=== PATIENT | male | born 1945 | race Caucasian/White ===

== ENCOUNTER 2016-12-05 15:07 | Emergency (ER) | payer MEDICARE, BC ==
[~2016-12-05] VITALS: Ht 182.9 cm; Wt 95.3 kg
[~2016-12-05 15:07] MED LIST: ASPI-482 PO; CETI10TA2 PO; CYAN10005 PO; FLUT1DIS3 IH; OMEP20CA9 PO; SIMV20TA3 PO; VALS1TAB25 PO
--- NOTE | 2016-12-05 18:36 | PHYS DOC ---
Past Medical History Past Medical History: Asthma, High Cholesterol, Hypertension Past Surgical History: Cholecystectomy, Other Additional Past Surgical Histo: prostate Additional Information: beer everyday Drug Use: None Adult General Chief Complaint Chief Complaint: FEVER HPI HPI Patient is a 71 year old male who presents with dry cough, chills and sweats, myalgia, rhinorrhea, and fatigue for over the past week. He took Tamiflu and has completed this. He states he is still having fevers to 101 at night, so he came to make sure he does not have pneumonia. He denies sputum production, dyspnea, chest pain, abdominal pain, nausea or vomiting, diarrhea, sore throat. Review of Systems Review of Systems Constitutional: Has fever and chills [] Eyes: Denies change in visual acuity, redness, or eye pain [] HENT: Denies nasal congestion or sore throat [] Respiratory: Denies shortness of breath [] Cardiovascular: No additional information not addressed in HPI [] GI: Denies abdominal pain, nausea, vomiting, bloody stools or diarrhea [] : Denies dysuria or hematuria [] Musculoskeletal: Denies back pain or joint pain [] Integument: Denies rash or skin lesions [] Neurologic: Denies headache, focal weakness or sensory changes [] Endocrine: Denies polyuria or polydipsia [] Allergies Allergies Allergies Coded Allergies Type Severity Reaction Last Updated Verified No Known Drug Allergies 07/26/14 No Physical Exam Physical Exam Constitutional: Well developed, well nourished, no acute distress, non-toxic appearance. [] HENT: Normocephalic, atraumatic, bilateral TMs normal, oropharynx moist, no oral exudates, nose normal. [] Eyes: PERRLA, EOMI, conjunctiva normal, no discharge. [] Neck: Normal range of motion, no tenderness, supple, no stridor. [] Cardiovascular:Heart rate regular rhythm [] Lungs & Thorax: Bilateral breath sounds clear to auscultation [] Abdomen: Bowel sounds normal, soft, no tenderness. [] Skin: Warm, dry, no erythema, no rash. [] Back: No tenderness, no CVA tenderness. [] Extremities: ROM intact, no edema. [] Neurologic: Alert and oriented X 3, normal motor function, normal sensory function, no focal deficits noted. [] Psychologic: Affect normal, judgement normal, mood normal. [] Current Patient Data Vital Signs Vital Signs Date Time Temp Pulse Resp B/P Pulse Ox O2 Delivery O2 Flow Rate FiO2 12/05/16 18:39 97.6 74 18 140/80 96 Room Air 97.6 Radiology/Procedures Radiology/Procedures Chest xray as interpreted by me with no acute cardiopulmonary disease process Course & Med Decision Making Course & Med Decision Making Pertinent Labs and Imaging studies reviewed. (See chart for details) X-rays unremarkable. Discussed symptomatic care for likely viral illness. Encouraged primary care follow-up. Return precautions given. He understands and agrees with plan. Dragon Disclaimer Dragon Disclaimer This electronic medical record was generated, in whole or in part, using a voice recognition dictation system. Departure Departure Impression: Primary Impression: Upper respiratory infection Disposition: 01 HOME, SELF-CARE Condition: STABLE Referrals: Benigno WAKEFIELD MD (PCP) Patient Instructions: Upper Respiratory Infection, Adult, [id number] Additional Instructions: Take Tylenol or ibuprofen as needed for pain or fever. Follow-up with your primary care doctor within one week. Return for any concerns. Problem Qualifiers Primary Impression: Upper respiratory infection URI type: unspecified viral URI Qualified Code: J06.9 - Acute upper respiratory infection, unspecified Alysha SMITH MD Dec 05, 2016 18:36
[2016-12-05 18:39] VITALS: BP 140/80
--- NOTE | 2016-12-06 09:01 | RAD ---
Chest, 2 views, 12/05/2016: History: Cough, fever Comparison is made to a study from 03/28/2009. The heart size and pulmonary vascularity are within normal limits. There is mild tortuosity of the thoracic aorta. There is mild bibasilar linear atelectasis and/or scarring. The upper lung echeverria are clear. There is no evidence of pleural fluid. Moderate hypertrophic spurring is present in the spine. IMPRESSION: Mild bibasilar linear atelectasis and/or scarring.
== END 2016-12-05 18:40 | disposition home or self-care (01) ==
LOC: ER 15:07
DX: J06.9 Acute upper respiratory infection, unspecified (principal); M79.1 Myalgia; J45.909 Unspecified asthma, uncomplicated; E78.00 Pure hypercholesterolemia, unspecified
CPT/HCPCS: 71020; 99284

== ENCOUNTER 2016-12-12 14:44 | Inpatient (IN) | payer MEDICARE, BC ==
[2016-12-12] VITALS (15 sets, daily range): BP systolic 92–129; BP diastolic 57–102
[~2016-12-12] VITALS: Ht 180.3 cm; Wt 103.4 kg
[2016-12-12] MEDS ORDERED: IV NORMAL SALINE 1000ML BAG 1,000 ML IV SCH (15:45)
[2016-12-12] MEDS ORDERED: ONDANSETRON PF 4 MG/2 ML VIAL. IV ONE (15:45)
[2016-12-12] MEDS ORDERED: KETOROLAC TROMETHAMINE 30 MG/ML SYRINGE. IV ONE (15:45)
[2016-12-12 15:58] LABS: BASO % 0 % (0-3); EOS % 0 % (0-3); HEMOGLOBIN 11.6 g/dL (13.0-17.5); LYMPH # 0.3 x10^3/uL (1.0-4.8); LYMPH % 2 % (24-48); MEAN CORPUSCULAR HEMOGLOBIN 32 pg (25-35); MEAN CORPUSCULAR HGB CONC 33 g/dL (31-37); MEAN CORPUSCULAR VOLUME 98 fL (79-100); MONO % 1 % (0-9); NEUT % 96 % (31-73); PLATELET COUNT 409 x10^3/uL (140-400); RED BLOOD COUNT 3.59 x10^6/uL (4.30-5.70); RED CELL DISTRIBUTION WIDTH 13.3 % (11.5-14.5)
[2016-12-12] MEDS ORDERED: ACETAMINOPHEN 325 MG TABLET. PO ONE (16:00)
[2016-12-12 16:14] LABS: CALCIUM 8.5 mg/dL (8.5-10.1); CREATININE 1.4 mg/dL (0.7-1.3); GFR 50.1; POTASSIUM 3.1 mmol/L (3.5-5.1)
[2016-12-12 16:20] LABS: ALBUMIN 2.6 g/dL (3.4-5.0); ALBUMIN/GLOBULIN RATIO 0.6 (1.0-1.7); TOTAL BILIRUBIN 1.4 mg/dL (0.2-1.0); TOTAL PROTEIN 7.2 g/dL (6.4-8.2)
[2016-12-12 16:25] LABS: BILIRUBIN,URINE SMALL (NEG); GLUCOSE,URINE NEGATIVE (NEG); NITRITE,URINE NEGATIVE (NEG); PROTEIN,URINE NEGATIVE (NEG-TRACE)
[2016-12-12 16:36] LABS: BACTERIA,URINE 0 /HPF (0-FEW); RBC,URINE OCC /HPF (0-2); SQUAMOUS EPITHELIAL CELL,UR OCC /LPF
[2016-12-12 16:55] LABS: PLT ESTIMATE ADEQUATE (ADEQUATE)
--- NOTE | 2016-12-12 17:00 | RAD ---
Indication fever for 2 days. History of difficulty breathing. History of hypertension. PA and lateral views of the chest were obtained and are compared to an examination one week earlier. Some linear atelectasis or scar is seen at the left lung base appearing similar. Heart and pulmonary vessels are unchanged. Background changes compatible with emphysema or fibrosis are noted. There is no gross congestive heart failure. An acute parenchymal infiltrate is not seen. There has not been a significant change in the appearance of the chest compared to the previous exam. IMPRESSION: Chronic changes. No acute process. No significant change
[2016-12-12 17:04] LABS: OBC FLU VALID
[2016-12-12] MEDS ORDERED: ACETAMINOPHEN 325 MG TABLET. PO PRN (17:30)
[2016-12-12] MEDS ORDERED: ONDANSETRON PF 4 MG/2 ML VIAL. IV PRN (17:30)
--- NOTE | 2016-12-12 17:55 | PHYS DOC ---
Past Medical History Past Medical History: Asthma, High Cholesterol, Hypertension Past Surgical History: Cholecystectomy, Other Additional Past Surgical Histo: TURP 2011 Alcohol Use: None Drug Use: None Adult General Chief Complaint Chief Complaint: SHORTNESS OF BREATH HPI HPI Patient is a 71 year old gentleman who presents here today secondary to fever to 102 for 16 days consistently. Patient reports the fever comes and goes daily however he's had a fever every day for approximately 15 in the last 16 days. Patient reports that he did see his primary care physician and was treated with Tamiflu without resolution of his fevers. Patient then came to the ER for further evaluation of his fever was told that it was likely viral and that it would resolve on its own. Patient's weight approximately 6-7 more days with fevers occurring every day. Patient's only symptom is a nonproductive cough. Patient denies any abdominal pain dysuria frequency or urgency. Patient denies any sore throat or ear pain. Patient denies any rashes. Patient denies any diarrhea. Patient denies any recent travel. Patient denies any new medications. Patient's family reports that he is extremely weak and barely able to walk. They report he's been feeling dizzy for the last couple days and hence brought to the ER today secondary to concerns of him falling and hurting himself. Patient's history significant for hypertension, status post cholecystectomy and prostatectomy. Patient has no diabetes liver longer kidney problems. Patient does not smoke drink or do any drugs. Patient is not allergic to any medications. Patient's physical exam the ER is unremarkable except for tachycardia. Patient had a fever 101 here in the ER and heart rate apparently 115-120. No source of his fevers identifiable by his exam. Patient's ER workup is unremarkable. Only significant lab value was a slightly elevated white count of 12,000 with a significantly left shifted. Patient had 96 segs noted. Patient's UA was unremarkable. At this time his lactic acid is still pending. Blood cultures were sent. A/P this is a 71-year-old gentleman with fever of unknown etiology has been occurring for the last 16 days without an unclear source. Patient reports decreased by mouth intake and weakness. Patient will be admitted to the hospital and started empirically on antibiotics as well as cultures are pending. Patient will likely benefit from consultation from infectious disease for further evaluation of the source. Patient has had no recent travel or no new medications. Patient has been treated for 10 influenza. Patient's evaluation the ER has not been able to resolve or reveal the source of his fever. Review of Systems Review of Systems Constitutional: Denies fever or chills [] Eyes: Denies change in visual acuity, redness, or eye pain [] Cardiovascular: No additional information not addressed in HPI [] GI: Denies abdominal pain, nausea, vomiting, bloody stools or diarrhea [] : Denies dysuria or hematuria [] Musculoskeletal: Denies back pain or joint pain [] Integument: Denies rash or skin lesions [] Neurologic: Denies headache, focal weakness or sensory changes [] Endocrine: Denies polyuria or polydipsia [] Current Medications Current Medications Current Medications Medications (Trade) Dose Ordered Sig/Tyler Start Time Stop Time Status Last Admin Dose Admin Acetaminophen (Tylenol) 650 mg PRN Q4HRS PRN 12/12/16 17:30 12/13/16 17:29 Ketorolac Tromethamine (Toradol) 30 mg 1X ONCE 12/12/16 15:45 12/12/16 15:48 DC 12/12/16 15:58 30 MG Ondansetron HCl (Zofran) 4 mg 1X ONCE 12/12/16 15:45 12/12/16 15:48 DC 12/12/16 15:58 4 MG Ondansetron HCl 4 mg 4 mg PRN Q8HRS PRN 12/12/16 17:30 12/13/16 17:29 Sodium Chloride (Iv Sodium Chloride 0.9% 1000ml Bag) 1,000 ml @ 125 mls/hr Q8H 12/12/16 17:45 12/13/16 17:44 Allergies Allergies Allergies Coded Allergies Type Severity Reaction Last Updated Verified No Known Drug Allergies 07/26/14 No Physical Exam Physical Exam Constitutional: Well developed, well nourished, no acute distress, non-toxic appearance. [] HENT: Normocephalic, atraumatic, bilateral external ears normal, oropharynx moist, no oral exudates, nose normal. [] Eyes: PERRLA, EOMI, conjunctiva normal, no discharge. [] Neck: Normal range of motion, no tenderness, supple, no stridor. [] Cardiovascular:Heart rate regular rhythm, Lungs & Thorax: Bilateral breath sounds clear to auscultation [] Abdomen: Bowel sounds normal, soft, no tenderness, no masses, no pulsatile masses. [] Skin: Warm, dry, no erythema, no rash. [] Back: No tenderness, no CVA tenderness. [] Extremities: No tenderness, no cyanosis, no clubbing, ROM intact, no edema. [] Neurologic: Alert and oriented X 3, normal motor function, normal sensory function, no focal deficits noted. [] Psychologic: Affect normal, judgement normal, mood normal. [] Current Patient Data Vital Signs Vital Signs Date Time Temp Pulse Resp B/P Pulse Ox O2 Delivery O2 Flow Rate FiO2 12/12/16 15:10 100.2 119 28 138/72 94 Room Air 100.2 Lab Values Laboratory Tests Test 12/12/16 15:30 12/12/16 16:15 12/12/16 16:22 White Blood Count 12.0x10^3/uL (4.0-11.0) H Red Blood Count 3.59x10^6/uL (4.30-5.70) L Hemoglobin 11.6g/dL (13.0-17.5) L Hematocrit 35.0% (39.0-53.0) L Mean Corpuscular Volume 98fL (79-100) Mean Corpuscular Hemoglobin 32pg (25-35) Mean Corpuscular Hemoglobin Concent 33g/dL (31-37) Red Cell Distribution Width 13.3% (11.5-14.5) Platelet Count 409x10^3/uL (140-400) H Neutrophils (%) (Auto) 96% (31-73) H Lymphocytes (%) (Auto) 2% (24-48) L Monocytes (%) (Auto) 1% (0-9) Eosinophils (%) (Auto) 0% (0-3) Basophils (%) (Auto) 0% (0-3) Neutrophils # (Auto) 11.4x10^3uL (1.8-7.7) H Lymphocytes # (Auto) 0.3x10^3/uL (1.0-4.8) L Monocytes # (Auto) 0.2x10^3/uL (0.0-1.1) Eosinophils # (Auto) 0.0x10^3/uL (0.0-0.7) Basophils # (Auto) 0.0x10^3/uL (0.0-0.2) Segmented Neutrophils % 81% (35-66) H Band Neutrophils % 15% (0-9) H Lymphocytes % 2% (24-48) L Monocytes % 2% (0-10) Platelet Estimate Adequate (ADEQUATE) Sodium Level 134mmol/L (136-145) L Potassium Level 3.1mmol/L (3.5-5.1) L Chloride Level 97mmol/L (98-107) L Carbon Dioxide Level 24mmol/L (21-32) Anion Gap 13 (6-14) Blood Urea Nitrogen 24mg/dL (8-26) Creatinine 1.4mg/dL (0.7-1.3) H Estimated GFR (Cockcroft-Gault) 50.1 BUN/Creatinine Ratio 17 (6-20) Glucose Level 124mg/dL (70-99) H Lactic Acid Level 1.6mmol/L (0.4-2.0) Calcium Level 8.5mg/dL (8.5-10.1) Total Bilirubin 1.4mg/dL (0.2-1.0) H Aspartate Amino Transferase (AST) 33U/L (15-37) Alanine Aminotransferase (ALT) 61U/L (16-63) Alkaline Phosphatase 149U/L (46-116) H Total Protein 7.2g/dL (6.4-8.2) Albumin 2.6g/dL (3.4-5.0) L Albumin/Globulin Ratio 0.6 (1.0-1.7) L Lipase 125U/L (73-393) Thyroid Stimulating Hormone (TSH) 1.231uIU/mL (0.358-3.74) Urine Collection Type Unknown Urine Color Alma Delia Urine Clarity Clear Urine pH 6.0 Urine Specific [place] 1.015 Urine Protein Negativemg/dL (NEG-TRACE) Urine Glucose (UA) Negativemg/dL (NEG) Urine Ketones (Stick) Tracemg/dL (NEG) Urine Blood Negative (NEG) Urine Nitrite Negative (NEG) Urine Bilirubin Small (NEG) Urine Urobilinogen Dipstick 2.0mg/dL (0.2 mg/dL) Urine Leukocyte Esterase Negative (NEG) Urine RBC Occ/HPF (0-2) Urine WBC 1-4/HPF (0-4) Urine Squamous Epithelial Cells Occ/LPF Urine Bacteria 0/HPF (0-FEW) Urine Cellular Casts Occ/HPF Urine Hyaline Casts Moderate/HPF Urine Mucus Mod/LPF Influenza Type A Antigen Negative (NEGATIVE) Influenza Type B Antigen Negative (NEGATIVE) Laboratory Tests 12/12/16 15:30 Laboratory Tests 12/12/16 15:30 EKG EKG [] Radiology/Procedures Radiology/Procedures [] Course & Med Decision Making Course & Med Decision Making Pertinent Labs and Imaging studies reviewed. (See chart for details) [] Dragon Disclaimer Dragon Disclaimer This electronic medical record was generated, in whole or in part, using a voice recognition dictation system. Departure Departure Impression: Primary Impression: FUO (fever of unknown origin) Additional Impressions: Hypokalemia Leukocytosis Dehydration Generalized weakness Disposition: 09 ADMITTED INPATIENT Admitting Physician: Candido Chamberlain Condition: STABLE Referrals: Benigno WAKEFIELD MD (PCP) Problem Qualifiers ALDEN CHRISTIANSON MD Dec 12, 2016 17:55
[2016-12-12] MEDS: IV NORMAL SALINE 1000ML BAG 1,000 ML IV SCH ×3 (17:57→23:00)
[2016-12-12] MEDS ORDERED: PIP/TAZO PER PHARMACY MC PRN (18:45)
[2016-12-12] MEDS ORDERED: VANCOMYCIN PER PHARMACY MC PRN (18:45)
[2016-12-12] MEDS ORDERED: DILTIAZEM IV PUSH 25 MG/5 ML VIAL. IVP ONE ×2 (18:45→19:15)
[2016-12-12] MEDS: DILTIAZEM 125 MG in IV DEXTROSE 5% 100 ML IV PRN (18:49)
[2016-12-12] MEDS ORDERED: VANCOMYCIN 2 GM in IV NORMAL SALINE 500ML BAG 500 ML IV ONE (19:00)
[2016-12-12] MEDS ORDERED: PIPERACILLIN/TAZOBACTAM 3.375 GM in IV NORMAL SALINE 50ML 50 ML IV ONE (19:00)
[2016-12-12] MEDS ORDERED: NORMAL SALINE IV SCH (19:30)
[2016-12-12] MEDS ORDERED: DIGOXIN 500 MCG/2 ML AMPUL. IV ONE (21:00)
[2016-12-12] MEDS ORDERED: POTASSIUM CHLORIDE 20 MEQ TABLET.ER. PO ONE (22:00)
[2016-12-12] MEDS: PIPERACILLIN/TAZOBACTAM 3.375 GM in IV NORMAL SALINE 50ML 50 ML IV SCH (23:26)
[2016-12-12] MEDS: PANTOPRAZOLE 40 MG TABLET. PO SCH (23:26)
[2016-12-13] VITALS (26 sets, daily range): BP systolic 94–164; BP diastolic 57–79
[2016-12-13 01:13] LABS: NEGATIVE OBC STREP NEG; POSITIVE OBC STREP POS
[2016-12-13] MEDS: PIPERACILLIN/TAZOBACTAM 3.375 GM in IV NORMAL SALINE 50ML 50 ML IV SCH (05:48)
[2016-12-13] MEDS: DILTIAZEM 125 MG in IV DEXTROSE 5% 100 ML IV PRN (05:54)
--- NOTE | 2016-12-13 06:59 | EKG ---
[facility] [address] [place] [address] Test Date: 2016-12-12 Test Time: 16:03:27 Pat Name: TRISH PETERSEN Department: Room: 108 1 Gender: M Felting Machine Operator: CARMITA : 1945 Requested By: ALDEN CHRISTIANSON Order Number: [id number] Reading MD: Miley Hathaway Measurements Intervals [place] Rate: 110 P: 128 VT: 162 QRS: -4 QRSD: 92 T: -2 QT: 318 QTc: 436 Interpretive Statements SINUS TACHYCARDIA LEFTWARD AXIS OTHERWISE NORMAL ECG RI6.01 No previous ECG available for comparison Electronically Signed On 12-16-2016 21:39:13 PROJECT DEVELOPMENT DIRECTOR by Miley Hathaway
[2016-12-13] MEDS ORDERED: VANCOMYCIN 1.5 GM in IV NORMAL SALINE 500ML BAG 500 ML IV SCH (07:00)
[2016-12-13] MEDS ORDERED: PANTOPRAZOLE 40 MG TABLET. PO SCH (07:30)
[2016-12-13 07:54] LABS: BASO % 0 % (0-3); EOS % 0 % (0-3); GFR 73.9; HEMATOCRIT 33.6 % (39.0-53.0); HEMOGLOBIN 11.2 g/dL (13.0-17.5); LYMPH # 0.6 x10^3/uL (1.0-4.8); LYMPH % 3 % (24-48); MEAN CORPUSCULAR HEMOGLOBIN 33 pg (25-35); MEAN CORPUSCULAR HGB CONC 33 g/dL (31-37); MEAN CORPUSCULAR VOLUME 98 fL (79-100); MONO % 5 % (0-9); NEUT % 91 % (31-73); PLATELET COUNT 397 x10^3/uL (140-400); POTASSIUM 3.7 mmol/L (3.5-5.1); RED BLOOD COUNT 3.44 x10^6/uL (4.30-5.70); RED CELL DISTRIBUTION WIDTH 13.3 % (11.5-14.5); WHITE BLOOD COUNT 16.4 x10^3/uL (4.0-11.0)
--- NOTE | 2016-12-13 08:31 | PDOC ---
Provider Note Provider Note H&P #[id number] Benigno WAKEFIELD MD Dec 13, 2016 08:31
--- NOTE | 2016-12-13 08:31 | PDOC ---
Infectious Disease Note Vital Sign Vital Signs Vital Signs Date Time Temp Pulse Resp B/P Pulse Ox O2 Delivery O2 Flow Rate FiO2 12/13/16 07:00 109 16 129/74 96 Room Air 12/13/16 03:00 98.3 98.3 Physical Exam PHYSICAL EXAM Labs Lab Laboratory Tests Test 12/12/16 15:30 12/12/16 16:15 12/12/16 16:22 12/12/16 21:49 White Blood Count 12.0x10^3/uL (4.0-11.0) Red Blood Count 3.59x10^6/uL (4.30-5.70) Hemoglobin 11.6g/dL (13.0-17.5) Hematocrit 35.0% (39.0-53.0) Mean Corpuscular Volume 98fL (79-100) Mean Corpuscular Hemoglobin 32pg (25-35) Mean Corpuscular Hemoglobin Concent 33g/dL (31-37) Red Cell Distribution Width 13.3% (11.5-14.5) Platelet Count 409x10^3/uL (140-400) Neutrophils (%) (Auto) 96% (31-73) Lymphocytes (%) (Auto) 2% (24-48) Monocytes (%) (Auto) 1% (0-9) Eosinophils (%) (Auto) 0% (0-3) Basophils (%) (Auto) 0% (0-3) Neutrophils # (Auto) 11.4x10^3uL (1.8-7.7) Lymphocytes # (Auto) 0.3x10^3/uL (1.0-4.8) Monocytes # (Auto) 0.2x10^3/uL (0.0-1.1) Eosinophils # (Auto) 0.0x10^3/uL (0.0-0.7) Basophils # (Auto) 0.0x10^3/uL (0.0-0.2) Segmented Neutrophils % 81% (35-66) Band Neutrophils % 15% (0-9) Lymphocytes % 2% (24-48) Monocytes % 2% (0-10) Platelet Estimate Adequate (ADEQUATE) Sodium Level 134mmol/L (136-145) Potassium Level 3.1mmol/L (3.5-5.1) Chloride Level 97mmol/L (98-107) Carbon Dioxide Level 24mmol/L (21-32) Anion Gap 13 (6-14) Blood Urea Nitrogen 24mg/dL (8-26) Creatinine 1.4mg/dL (0.7-1.3) Estimated GFR (Cockcroft-Gault) 50.1 BUN/Creatinine Ratio 17 (6-20) Glucose Level 124mg/dL (70-99) Lactic Acid Level 1.6mmol/L (0.4-2.0) Calcium Level 8.5mg/dL (8.5-10.1) Total Bilirubin 1.4mg/dL (0.2-1.0) Aspartate Amino Transf (AST/SGOT) 33U/L (15-37) Alanine Aminotransferase (ALT/SGPT) 61U/L (16-63) Alkaline Phosphatase 149U/L (46-116) Total Protein 7.2g/dL (6.4-8.2) Albumin 2.6g/dL (3.4-5.0) Albumin/Globulin Ratio 0.6 (1.0-1.7) Lipase 125U/L (73-393) Thyroid Stimulating Hormone (TSH) 1.231uIU/mL (0.358-3.74) Urine Collection Type Unknown Urine Color Alma Delia Urine Clarity Clear Urine pH 6.0 Urine Specific [place] 1.015 Urine Protein Negativemg/dL (NEG-TRACE) Urine Glucose (UA) Negativemg/dL (NEG) Urine Ketones (Stick) Tracemg/dL (NEG) Urine Blood Negative (NEG) Urine Nitrite Negative (NEG) Urine Bilirubin Small (NEG) Urine Urobilinogen Dipstick 2.0mg/dL (0.2 mg/dL) Urine Leukocyte Esterase Negative (NEG) Urine RBC Occ/HPF (0-2) Urine WBC 1-4/HPF (0-4) Urine Squamous Epithelial Cells Occ/LPF Urine Bacteria 0/HPF (0-FEW) Urine Cellular Casts Occ/HPF Urine Hyaline Casts Moderate/HPF Urine Mucus Mod/LPF Influenza Type A Antigen Negative (NEGATIVE) Influenza Type B Antigen Negative (NEGATIVE) Group A Streptococcus Rapid Negative (NEGATIVE) Test 12/13/16 06:50 White Blood Count 16.4x10^3/uL (4.0-11.0) Red Blood Count 3.44x10^6/uL (4.30-5.70) Hemoglobin 11.2g/dL (13.0-17.5) Hematocrit 33.6% (39.0-53.0) Mean Corpuscular Volume 98fL (79-100) Mean Corpuscular Hemoglobin 33pg (25-35) Mean Corpuscular Hemoglobin Concent 33g/dL (31-37) Red Cell Distribution Width 13.3% (11.5-14.5) Platelet Count 397x10^3/uL (140-400) Neutrophils (%) (Auto) 91% (31-73) Lymphocytes (%) (Auto) 3% (24-48) Monocytes (%) (Auto) 5% (0-9) Eosinophils (%) (Auto) 0% (0-3) Basophils (%) (Auto) 0% (0-3) Neutrophils # (Auto) 14.8x10^3uL (1.8-7.7) Lymphocytes # (Auto) 0.6x10^3/uL (1.0-4.8) Monocytes # (Auto) 0.9x10^3/uL (0.0-1.1) Eosinophils # (Auto) 0.1x10^3/uL (0.0-0.7) Basophils # (Auto) 0.0x10^3/uL (0.0-0.2) Sodium Level 138mmol/L (136-145) Potassium Level 3.7mmol/L (3.5-5.1) Chloride Level 104mmol/L (98-107) Carbon Dioxide Level 21mmol/L (21-32) Anion Gap 13 (6-14) Blood Urea Nitrogen 16mg/dL (8-26) Creatinine 1.0mg/dL (0.7-1.3) Estimated GFR (Cockcroft-Gault) 73.9 Glucose Level 110mg/dL (70-99) Calcium Level 8.0mg/dL (8.5-10.1) Objective Assessment GNR - sepsis -POA 12/12 Fever Leukocytosis Afib -new Abd discomfort Plan Plan of Care Discont Vanc Discont Zosyn with increasing WBC despite Several doses of Zosyn Add Meropenem Add Procalcitonin/sed rate/Troponin/CK/LFTS Await CT abd/pain F/u cults/labs D/w Dr. White. D/w family Thank you # [id number] SARIAH YEE MD Dec 13, 2016 08:31
--- NOTE | 2016-12-13 08:57 | EKG ---
[facility] [address] [place] [address] Test Date: 2016-12-12 Test Time: 18:26:17 Pat Name: TRISH PETERSEN Department: Room: 108 1 Gender: M Applications Coordinator: : 1945 Requested By: Benigno WAKEFIELD Order Number: [id number] Reading MD: Miley Hathaway Measurements Intervals [place] Rate: 146 P: MD: QRS: 31 QRSD: 94 T: 167 QT: 304 QTc: 475 Interpretive Statements ATRIAL FIBRILLATION ST & T ABNORMALITY, CONSIDER HIGH LATERAL ISCHEMIA OR LEFT VENTRICULAR STRAIN INFERIOR ISCHEMIA OR LEFT VENTRICULAR STRAIN ABNORMAL ECG RI6.01 No previous ECG available for comparison Electronically Signed On 12-16-2016 21:42:10 APPLICATIONS SUPPORT ANALYST by Miley Hathaway
[2016-12-13] MEDS ORDERED: HYDROCHLOROTHIAZIDE 12.5 MG CAPSULE. PO SCH (09:00)
[2016-12-13] MEDS ORDERED: NON FORMULARY ITEM (Fluticasone/Salmeterol (Advair 250-50 Diskus) 1 PUFF) IH SCH (09:00)
--- NOTE | 2016-12-13 09:03 | HP ---
ADMIT DATE: 12/12/2016 ADMISSION DIAGNOSIS: Sepsis. HISTORY OF PRESENT ILLNESS: This is a 71-year-old white male who has had nearly daily fevers over the last several weeks. He had some flu-like symptoms, was seen in the ER, but apparently flu tests were negative, but was started on Tamiflu. He initially did a little bit better, but then his fevers have persisted. He has gradually weakened and has been more dizzy. His daughter was concerned he was going to fall and hurt himself and brought him back to the ER where he was reevaluated. He was noted to have a fever of 101 and heart rate in the 115-120 range with atrial fib. White count was elevated at 12,000 with 96 segs. His urine did not look particularly remarkable, but he has had some difficulty urinating. Recently, he has had odor to his urine and it has been cloudy color. He has nocturia despite a history of prostatectomy from prostate cancer. He feels like he cannot completely empty his bladder. Also of note, his bilirubin was a little bit elevated, but he has had his gallbladder removed previously. PAST MEDICAL HISTORY: Significant for asthma/COPD, hyperlipidemia, hypertension, prostate cancer. PAST SURGICAL HISTORY: Include cholecystectomy and prostatectomy in 2011. FAMILY HISTORY: Noncontributory. SOCIAL HISTORY: His daughter works here. He is , has a 10 year smoking exposure history. ALLERGIES: He has no known drug allergies. HOME MEDICATIONS: Include aspirin 81 mg daily, cetirizine 10 mg daily, B12 1000 mcg daily, Advair 250/50 one puff b.i.d., omeprazole 20 mg b.i.d., simvastatin 1 at bedtime 20 mg, valsartan/hydrochlorothiazide 80/12.5 one daily. REVIEW OF SYSTEMS: RESPIRATORY: He has some usual morning cough. He wears CPAP at night, has been a little more short of breath than baseline. CARDIAC: He denies any chest pain. He has noted a little bit of intermittent heart racing. HEENT: Denies sore throat, earache, he has some chronic sinus congestion, but no pain, pressure and he has been blowing out discolored mucus. EYES: He had not noticed any vision change. ABDOMEN: He has had some bloating, yesterday had a little bit of diarrhea. He has not had any significant heartburn or appetite change. He has not noticed any weight loss. CONSTITUTIONAL: Positive for the fevers. MUSCULOSKELETAL: Chronic low back pain that gets better in the morning after some activity. SKIN: No rashes. NEUROLOGIC: No headaches, no seizures, no neuropathy. PHYSICAL EXAMINATION: VITAL SIGNS: He has been afebrile since admission, but was 101 in the ER. His heart rates have been as fast as 166 with a respiratory rate as much as 28. He is 96% saturated on room air. Blood pressure has generally been in the 120/70 range, but it did drop into the lower 90s after a bolus of Cardizem. GENERAL: Does not appear in any significant distress. He is alert and oriented. HEENT: Positive for some sinus congestion, but no tenderness, otherwise unremarkable. Mucous membranes are moist. NECK: Supple. CARDIOVASCULAR: Heart irregular rate with tachycardia. No murmurs heard. LUNGS: Have some crackles in the bases, clear. ABDOMEN: Mildly distended but nontender. No hepatosplenomegaly is noted. No other masses are noted. Bowel sounds are present. EXTREMITIES: Without clubbing, cyanosis or peripheral edema. Strength is good without focal weakness. SKIN: Without obvious rash. Turgor is normal. IMAGING STUDIES: Chest x-ray is clear. LABORATORY DATA: Urinalysis shows trace of ketones, small amount of bilirubin, moderate hyaline casts that is maya in color with a specific gravity of 1.015. White count has gone up yesterday from 12-16.4 this morning, hemoglobin is going steady 11.6 yesterday, 11.2 today after nearly 3 liters of IV fluids. He does have a left shift. Chemistries: His potassium was low yesterday at 3.1, normal today at 3.7. His sodium low yesterday at 134, now 138. Creatinine has dropped from 1.4 to 1 with hydration. Glucose has dropped from 124-110 and total bilirubin elevated at 1.4, alkaline phosphatase elevated at 149. Albumin low at 2.6. TSH is normal. Serology: Flu A and B are negative. Rapid Strep is negative. Blood cultures have just been reported positive for gram-negative rods. ASSESSMENT AND PLAN: 1. Gram-negative marion sepsis. 2. Atrial fibrillation with rapid ventricular response. 3. Chronic obstructive pulmonary disease. 4. Hypertension. 5. Obstructive sleep apnea. 6. Hyperlipidemia. 7. History of Zendejas's esophagus. 8. History of hiatal hernia and gastroesophageal reflux disease. 9. History of prostate cancer. PLAN: He is admitted. Sepsis protocol in the intensive care unit. ID and Cardiology following. W Mai WAKEFIELD MD DR: LYLE/tianna JOB#: [id number] / [id number]
[2016-12-13 09:13] LABS: ALBUMIN 2.2 g/dL (3.4-5.0); DIRECT BILIRUBIN 0.5 mg/dL (0.0-0.2); TOTAL BILIRUBIN 1.1 mg/dL (0.2-1.0); TOTAL PROTEIN 6.6 g/dL (6.4-8.2)
[2016-12-13] MEDS ORDERED: IOHEXOL 240 MG/ML 50ML VIAL. PO ONE (09:15)
[2016-12-13] MEDS ORDERED: CONTRAST GIVEN MC PRN (09:15)
[2016-12-13] MEDS ORDERED: IOHEXOL 300 MG/ML 75 ML VIAL IV ONE (09:15)
[2016-12-13] MEDS: CETIRIZINE HCL 10 MG TABLET PO SCH (10:02)
[2016-12-13] MEDS: MEROPENEM 1 GM in IV NORMAL SALINE 100ML 100 ML IV SCH ×3 (10:02→22:15)
[2016-12-13] MEDS: ASPIRIN ENTERIC COATED 81 MG TABLET.DR. PO SCH (10:03)
[2016-12-13] MEDS: CYANOCOBALAMIN (VITAMIN B-12) 1,000 MCG TABLET. PO SCH (10:03)
[2016-12-13] MEDS: LOSARTAN POTASSIUM 50 MG TABLET. PO SCH (10:03)
--- NOTE | 2016-12-13 10:12 | PDOC2 ---
CONSULT Date of Consult Date of Consult DATE: 12/13/16 TIME: 10:00 Reason for Consult Reason for Consult: A-fib with RVR Referring Physician Referring Physician: Dr. White Identification/Chief Complaint Chief Complaint SOB History of Present Illness Reason for Visit: Pt presented to ER with a fever of 16 days. Pt had SOB with a non productive cough. Pt stated he gets dizzy when he stands and is weak. Blood cultures showed gram negative rods. Pt had new onset a-fib with RVR. Pt stated he had palpitations but they are less severe now. Pt denies ever having chest pain. Denies N,V, diaphoresis. No complaints at this time. Current Problem List Problem List Problems Medical Problems: (1) Atrial fibrillation with RVR Status: Acute (2) Dehydration Status: Acute (3) FUO (fever of unknown origin) Status: Acute (4) Generalized weakness Status: Acute (5) Hypokalemia Status: Acute (6) Leukocytosis Status: Acute (7) Sepsis due to undetermined organism Status: Acute Current Medications Current Medications Current Medications Sodium Chloride (Iv Sodium Chloride 0.9% 1000ml Bag) 1,000 ml @ 1,000 mls/hr Q1H IV Last administered on 12/12/16 15:55; Start 12/12/16 at 15:45; Stop at 16:44; Status DC Ondansetron HCl (Zofran) 4 mg 1X ONCE IV Last administered on 12/12/16 15:58 ; Start 12/12/16 at 15:45; Stop 12/12/16 at 15:48; Status DC Ketorolac Tromethamine (Toradol) 30 mg 1X ONCE IV Last administered on 15:58; Start 12/12/16 at 15:45; Stop 12/12/16 at 15:48; Status DC Acetaminophen (Tylenol) 650 mg 1X ONCE PO Last administered on 12/12/16 16:02 ; Start 12/12/16 at 16:00; Stop 12/12/16 at 16:01; Status DC Ondansetron HCl 4 mg 4 mg PRN Q8HRS PRN IV NAUSEA/VOMITING; Start 12/12/16 at 17:30; Stop 12/13/16 at 17:29 Sodium Chloride (Iv Sodium Chloride 0.9% 1000ml Bag) 1,000 ml @ 125 mls/hr Q8H IV Last administered on 12/12/16 23:00; Start 12/12/16 at 17:45; Stop at 17:44 Acetaminophen (Tylenol) 650 mg PRN Q4HRS PRN PO FEVER; Start 12/12/16 at 17:30 ; Stop 12/13/16 at 17:29 Vancomycin HCl (Vanco Per Pharmacy) 1 each PRN DAILY PRN MC SEE COMMENTS Last administered on 12/12/16 19:56; Start 12/12/16 at 18:45; Stop 12/13/16 at 08:21 ; Status DC Piperacillin Sod/ Tazobactam Sod 1 each 1 each PRN DAILY PRN MC SEE COMMENTS; Start 12/12/16 at 18:45; Stop 12/13/16 at 08:23; Status DC Diltiazem HCl/ Dextrose (Cardizem) 125 ml @ 0 mls/hr CONT PRN IV SEE I/O RECORD Last administered on 12/13/16 05:54; Start 12/12/16 at 18:45 Diltiazem HCl 10 mg 10 mg 1X ONCE IVP Last administered on 12/12/16 18:38; Start 12/12/16 at 18:45; Stop 12/12/16 at 18:46; Status DC Vancomycin HCl 2 gm/Sodium Chloride 500 ml @ 250 mls/hr 1X ONCE IV Last administered on 12/12/16 19:26; Start 12/12/16 at 19:00; Stop 12/12/16 at 20:59 ; Status DC Piperacillin Sod/ Tazobactam Sod 3.375 gm/Sodium Chloride 50 ml @ 100 mls/hr 1X ONCE IV Last administered on 12/12/16 18:52; Start 12/12/16 at 19:00; Stop 12/12/16 at 19:29; Status DC Piperacillin Sod/ Tazobactam Sod/ Sodium Chloride (Zosyn/Iv Sodium Chloride 0.9 % 50ml) 50 ml @ 100 mls/hr Q6HRS IV Last administered on 12/13/16 05:48; Start 12/13/16 at 00:00; Stop 12/13/16 at 08:23; Status DC Diltiazem HCl 20 mg 20 mg 1X ONCE IVP Last administered on 12/12/16 19:15; Start 12/12/16 at 19:15; Stop 12/12/16 at 19:17; Status DC Sodium Chloride 3,060 ml @ 765 mls/hr Q4H IV Last administered on 12/12/16 21 :03; Start 12/12/16 at 19:30; Stop 12/12/16 at 23:29; Status DC Vancomycin HCl/ Sodium Chloride (Iv Sodium Chloride 0.9% 500ml Bag) 500 ml @ 250 mls/hr Q12H IV Last administered on 12/13/16 05:52; Start 12/13/16 at 07: 00; Stop 12/13/16 at 08:21; Status DC Vancomycin HCl 1 each 1X ONCE MC ; Start 12/14/16 at 06:30; Stop 12/14/16 at 06 :30; Status DC Digoxin (Lanoxin) 500 mcg 1X ONCE IV Last administered on 12/12/16 21:01; Start 12/12/16 at 21:00; Stop 12/12/16 at 21:01; Status DC Potassium Chloride (Klor-Con) 40 meq 1X ONCE PO Last administered on 21:41; Start 12/12/16 at 22:00; Stop 12/12/16 at 22:01; Status DC Pantoprazole Sodium (Protonix) 40 mg DAILYAC PO ; Start 12/13/16 at 07:30; Stop 12/13/16 at 07:30; Status DC Pantoprazole Sodium (Protonix) 40 mg HS PO Last administered on 12/12/16 23:26 ; Start 12/12/16 at 23:30 Aspirin (Ecotrin) 81 mg DAILY PO ; Start 12/13/16 at 09:00 Cetirizine HCl (Zyrtec) 10 mg DAILY PO ; Start 12/13/16 at 09:00 Cyanocobalamin (Vitamin B-12) 1,000 mcg DAILY PO ; Start 12/13/16 at 09:00 Atorvastatin Calcium (Lipitor) 10 mg QHS PO ; Start 12/13/16 at 21:00 Non-Formulary Medication 1 puff BID IH ; Start 12/13/16 at 09:00; Stop 12/13/16 at 09:00; Status DC Losartan Potassium (Cozaar) 50 mg DAILY PO ; Start 12/13/16 at 09:00 Hydrochlorothiazide (Microzide) 12.5 mg DAILY PO ; Start 12/13/16 at 09:00 Albuterol/ Ipratropium (Duoneb) 3 ml RTQID NEB ; Start 12/13/16 at 08:30 Budesonide 0.5 mg 0.5 mg RTBID NEB ; Start 12/13/16 at 08:30 Meropenem/Sodium Chloride (Merrem/Iv Sodium Chloride 0.9% 100ml) 100 ml @ 200 mls/hr Q8HRS IV ; Start 12/13/16 at 08:30 Iohexol (Omnipaque 240 Mg/ml) 30 ml 1X ONCE PO ; Start 12/13/16 at 09:15; Stop 12/13/16 at 09:16; Status DC Iohexol (Omnipaque 300 Mg/ml) 75 ml 1X ONCE IV ; Start 12/13/16 at 09:15; Stop 12/13/16 at 09:16; Status DC Info (Do NOT chart on this entry -- for MONITORING) 1 each PRN DAILY PRN MC SEE COMMENTS; Start 12/13/16 at 09:15; Stop 12/15/16 at 09:14 Active Scripts Active Reported Vitamin B-12 (Cyanocobalamin (Vitamin B-12)) 1,000 Mcg Tablet 1 Tab PO DAILY All Day Allergy (Cetirizine Hcl) 10 Mg Tablet 10 Mg PO Advair 250-50 Diskus (Fluticasone/Salmeterol) 1 Each Disk.w.dev 1 Puff IH BID Omeprazole 20 Mg Capsule. 20 Mg PO BID Simvastatin 20 Mg Tablet 1 Tab PO QHS Valsartan-Hctz 80-12.5 Mg Tab (Valsartan/Hydrochlorothiazide) 1 Each Tablet 1 Each PO DAILY Aspir 81 (Aspirin) 81 Mg Tablet. 1 Tab PO DAILY Allergies Allergies: Coded Allergies: No Known Drug Allergies (Unverified , 07/26/14) Physical Exam Physical Exam Irregularly irregular S1, S2 - no murmur, rub Edema +2 noted to legs Extremities: Normal pulses Vitals VITALS Vital Signs Date Time Temp Pulse Resp B/P Pulse Ox O2 Delivery O2 Flow Rate FiO2 12/13/16 07:00 109 16 129/74 96 Room Air 12/13/16 03:00 98.3 98.3 Labs Labs Laboratory Tests Test 12/12/16 15:30 12/12/16 16:15 12/12/16 16:22 12/12/16 21:49 White Blood Count 12.0x10^3/uL (4.0-11.0) Red Blood Count 3.59x10^6/uL (4.30-5.70) Hemoglobin 11.6g/dL (13.0-17.5) Hematocrit 35.0% (39.0-53.0) Mean Corpuscular Volume 98fL (79-100) Mean Corpuscular Hemoglobin 32pg (25-35) Mean Corpuscular Hemoglobin Concent 33g/dL (31-37) Red Cell Distribution Width 13.3% (11.5-14.5) Platelet Count 409x10^3/uL (140-400) Neutrophils (%) (Auto) 96% (31-73) Lymphocytes (%) (Auto) 2% (24-48) Monocytes (%) (Auto) 1% (0-9) Eosinophils (%) (Auto) 0% (0-3) Basophils (%) (Auto) 0% (0-3) Neutrophils # (Auto) 11.4x10^3uL (1.8-7.7) Lymphocytes # (Auto) 0.3x10^3/uL (1.0-4.8) Monocytes # (Auto) 0.2x10^3/uL (0.0-1.1) Eosinophils # (Auto) 0.0x10^3/uL (0.0-0.7) Basophils # (Auto) 0.0x10^3/uL (0.0-0.2) Segmented Neutrophils % 81% (35-66) Band Neutrophils % 15% (0-9) Lymphocytes % 2% (24-48) Monocytes % 2% (0-10) Platelet Estimate Adequate (ADEQUATE) Sodium Level 134mmol/L (136-145) Potassium Level 3.1mmol/L (3.5-5.1) Chloride Level 97mmol/L (98-107) Carbon Dioxide Level 24mmol/L (21-32) Anion Gap 13 (6-14) Blood Urea Nitrogen 24mg/dL (8-26) Creatinine 1.4mg/dL (0.7-1.3) Estimated GFR (Cockcroft-Gault) 50.1 BUN/Creatinine Ratio 17 (6-20) Glucose Level 124mg/dL (70-99) Lactic Acid Level 1.6mmol/L (0.4-2.0) Calcium Level 8.5mg/dL (8.5-10.1) Total Bilirubin 1.4mg/dL (0.2-1.0) Aspartate Amino Transf (AST/SGOT) 33U/L (15-37) Alanine Aminotransferase (ALT/SGPT) 61U/L (16-63) Alkaline Phosphatase 149U/L (46-116) Total Protein 7.2g/dL (6.4-8.2) Albumin 2.6g/dL (3.4-5.0) Albumin/Globulin Ratio 0.6 (1.0-1.7) Lipase 125U/L (73-393) Thyroid Stimulating Hormone (TSH) 1.231uIU/mL (0.358-3.74) Urine Collection Type Unknown Urine Color Alma Delia Urine Clarity Clear Urine pH 6.0 Urine Specific [place] 1.015 Urine Protein Negativemg/dL (NEG-TRACE) Urine Glucose (UA) Negativemg/dL (NEG) Urine Ketones (Stick) Tracemg/dL (NEG) Urine Blood Negative (NEG) Urine Nitrite Negative (NEG) Urine Bilirubin Small (NEG) Urine Urobilinogen Dipstick 2.0mg/dL (0.2 mg/dL) Urine Leukocyte Esterase Negative (NEG) Urine RBC Occ/HPF (0-2) Urine WBC 1-4/HPF (0-4) Urine Squamous Epithelial Cells Occ/LPF Urine Bacteria 0/HPF (0-FEW) Urine Cellular Casts Occ/HPF Urine Hyaline Casts Moderate/HPF Urine Mucus Mod/LPF Influenza Type A Antigen Negative (NEGATIVE) Influenza Type B Antigen Negative (NEGATIVE) Group A Streptococcus Rapid Negative (NEGATIVE) Test 12/13/16 06:50 White Blood Count 16.4x10^3/uL (4.0-11.0) Red Blood Count 3.44x10^6/uL (4.30-5.70) Hemoglobin 11.2g/dL (13.0-17.5) Hematocrit 33.6% (39.0-53.0) Mean Corpuscular Volume 98fL (79-100) Mean Corpuscular Hemoglobin 33pg (25-35) Mean Corpuscular Hemoglobin Concent 33g/dL (31-37) Red Cell Distribution Width 13.3% (11.5-14.5) Platelet Count 397x10^3/uL (140-400) Neutrophils (%) (Auto) 91% (31-73) Lymphocytes (%) (Auto) 3% (24-48) Monocytes (%) (Auto) 5% (0-9) Eosinophils (%) (Auto) 0% (0-3) Basophils (%) (Auto) 0% (0-3) Neutrophils # (Auto) 14.8x10^3uL (1.8-7.7) Lymphocytes # (Auto) 0.6x10^3/uL (1.0-4.8) Monocytes # (Auto) 0.9x10^3/uL (0.0-1.1) Eosinophils # (Auto) 0.1x10^3/uL (0.0-0.7) Basophils # (Auto) 0.0x10^3/uL (0.0-0.2) Erythrocyte Sedimentation Rate 90 (0-15) Sodium Level 138mmol/L (136-145) Potassium Level 3.7mmol/L (3.5-5.1) Chloride Level 104mmol/L (98-107) Carbon Dioxide Level 21mmol/L (21-32) Anion Gap 13 (6-14) Blood Urea Nitrogen 16mg/dL (8-26) Creatinine 1.0mg/dL (0.7-1.3) Estimated GFR (Cockcroft-Gault) 73.9 Glucose Level 110mg/dL (70-99) Calcium Level 8.0mg/dL (8.5-10.1) Total Bilirubin 1.1mg/dL (0.2-1.0) Direct Bilirubin 0.5mg/dL (0.0-0.2) Aspartate Amino Transf (AST/SGOT) 30U/L (15-37) Alanine Aminotransferase (ALT/SGPT) 49U/L (16-63) Alkaline Phosphatase 124U/L (46-116) Creatine Kinase 117U/L (39-308) Troponin I Quantitative < 0.017ng/mL (0.000-0.055) Total Protein 6.6g/dL (6.4-8.2) Albumin 2.2g/dL (3.4-5.0) Procalcitonin 5.69ng/mL (0.00-0.10) Laboratory Tests Test 12/12/16 15:30 12/12/16 16:15 12/12/16 16:22 12/12/16 21:49 White Blood Count 12.0x10^3/uL (4.0-11.0) Red Blood Count 3.59x10^6/uL (4.30-5.70) Hemoglobin 11.6g/dL (13.0-17.5) Hematocrit 35.0% (39.0-53.0) Mean Corpuscular Volume 98fL (79-100) Mean Corpuscular Hemoglobin 32pg (25-35) Mean Corpuscular Hemoglobin Concent 33g/dL (31-37) Red Cell Distribution Width 13.3% (11.5-14.5) Platelet Count 409x10^3/uL (140-400) Neutrophils (%) (Auto) 96% (31-73) Lymphocytes (%) (Auto) 2% (24-48) Monocytes (%) (Auto) 1% (0-9) Eosinophils (%) (Auto) 0% (0-3) Basophils (%) (Auto) 0% (0-3) Neutrophils # (Auto) 11.4x10^3uL (1.8-7.7) Lymphocytes # (Auto) 0.3x10^3/uL (1.0-4.8) Monocytes # (Auto) 0.2x10^3/uL (0.0-1.1) Eosinophils # (Auto) 0.0x10^3/uL (0.0-0.7) Basophils # (Auto) 0.0x10^3/uL (0.0-0.2) Segmented Neutrophils % 81% (35-66) Band Neutrophils % 15% (0-9) Lymphocytes % 2% (24-48) Monocytes % 2% (0-10) Platelet Estimate Adequate (ADEQUATE) Sodium Level 134mmol/L (136-145) Potassium Level 3.1mmol/L (3.5-5.1) Chloride Level 97mmol/L (98-107) Carbon Dioxide Level 24mmol/L (21-32) Anion Gap 13 (6-14) Blood Urea Nitrogen 24mg/dL (8-26) Creatinine 1.4mg/dL (0.7-1.3) Estimated GFR (Cockcroft-Gault) 50.1 BUN/Creatinine Ratio 17 (6-20) Glucose Level 124mg/dL (70-99) Lactic Acid Level 1.6mmol/L (0.4-2.0) Calcium Level 8.5mg/dL (8.5-10.1) Total Bilirubin 1.4mg/dL (0.2-1.0) Aspartate Amino Transf (AST/SGOT) 33U/L (15-37) Alanine Aminotransferase (ALT/SGPT) 61U/L (16-63) Alkaline Phosphatase 149U/L (46-116) Total Protein 7.2g/dL (6.4-8.2) Albumin 2.6g/dL (3.4-5.0) Albumin/Globulin Ratio 0.6 (1.0-1.7) Lipase 125U/L (73-393) Thyroid Stimulating Hormone (TSH) 1.231uIU/mL (0.358-3.74) Urine Collection Type Unknown Urine Color Alma Delia Urine Clarity Clear Urine pH 6.0 Urine Specific [place] 1.015 Urine Protein Negativemg/dL (NEG-TRACE) Urine Glucose (UA) Negativemg/dL (NEG) Urine Ketones (Stick) Tracemg/dL (NEG) Urine Blood Negative (NEG) Urine Nitrite Negative (NEG) Urine Bilirubin Small (NEG) Urine Urobilinogen Dipstick 2.0mg/dL (0.2 mg/dL) Urine Leukocyte Esterase Negative (NEG) Urine RBC Occ/HPF (0-2) Urine WBC 1-4/HPF (0-4) Urine Squamous Epithelial Cells Occ/LPF Urine Bacteria 0/HPF (0-FEW) Urine Cellular Casts Occ/HPF Urine Hyaline Casts Moderate/HPF Urine Mucus Mod/LPF Influenza Type A Antigen Negative (NEGATIVE) Influenza Type B Antigen Negative (NEGATIVE) Group A Streptococcus Rapid Negative (NEGATIVE) Test 12/13/16 06:50 White Blood Count 16.4x10^3/uL (4.0-11.0) Red Blood Count 3.44x10^6/uL (4.30-5.70) Hemoglobin 11.2g/dL (13.0-17.5) Hematocrit 33.6% (39.0-53.0) Mean Corpuscular Volume 98fL (79-100) Mean Corpuscular Hemoglobin 33pg (25-35) Mean Corpuscular Hemoglobin Concent 33g/dL (31-37) Red Cell Distribution Width 13.3% (11.5-14.5) Platelet Count 397x10^3/uL (140-400) Neutrophils (%) (Auto) 91% (31-73) Lymphocytes (%) (Auto) 3% (24-48) Monocytes (%) (Auto) 5% (0-9) Eosinophils (%) (Auto) 0% (0-3) Basophils (%) (Auto) 0% (0-3) Neutrophils # (Auto) 14.8x10^3uL (1.8-7.7) Lymphocytes # (Auto) 0.6x10^3/uL (1.0-4.8) Monocytes # (Auto) 0.9x10^3/uL (0.0-1.1) Eosinophils # (Auto) 0.1x10^3/uL (0.0-0.7) Basophils # (Auto) 0.0x10^3/uL (0.0-0.2) Erythrocyte Sedimentation Rate 90 (0-15) Sodium Level 138mmol/L (136-145) Potassium Level 3.7mmol/L (3.5-5.1) Chloride Level 104mmol/L (98-107) Carbon Dioxide Level 21mmol/L (21-32) Anion Gap 13 (6-14) Blood Urea Nitrogen 16mg/dL (8-26) Creatinine 1.0mg/dL (0.7-1.3) Estimated GFR (Cockcroft-Gault) 73.9 Glucose Level 110mg/dL (70-99) Calcium Level 8.0mg/dL (8.5-10.1) Total Bilirubin 1.1mg/dL (0.2-1.0) Direct Bilirubin 0.5mg/dL (0.0-0.2) Aspartate Amino Transf (AST/SGOT) 30U/L (15-37) Alanine Aminotransferase (ALT/SGPT) 49U/L (16-63) Alkaline Phosphatase 124U/L (46-116) Creatine Kinase 117U/L (39-308) Troponin I Quantitative < 0.017ng/mL (0.000-0.055) Total Protein 6.6g/dL (6.4-8.2) Albumin 2.2g/dL (3.4-5.0) Procalcitonin 5.69ng/mL (0.00-0.10) Assessment/Plan Assessment/Plan New onset A fib with RVR Possible Pulmonary HTN Pt looks dry Agree with current treatment Fluid challenge - 500 cc NS bolus followed by 150 cc / hr Thank you very much for allowing me to be involved with this patient. ODIN ELLSWORTH MD Dec 13, 2016 10:11
[2016-12-13] MEDS: IPRATRPIUM/ALBUTEROL 0.5/2.5MG 3 ML NEBU. NEB SCH ×3 (11:19→19:45)
[2016-12-13] MEDS: BUDESONIDE 0.5 MG/2 ML NEBU NEB SCH ×2 (11:19→19:45)
--- NOTE | 2016-12-13 11:26 | CARD ---
APPROVED REPORT EXAM: Two-dimensional and M-mode echocardiogram with Doppler and color Doppler. Other Information Quality : GoodHR: 107bpm INDICATION Atrial Fibrillation 2D DIMENSIONS Left Atrium(2D)3.6 (1.6-4.0cm)IVSd1.0 (0.7-1.1cm) Aortic Root(2D)3.5 (2.0-3.7cm)LVDd5.2 (3.9-5.9cm) LVOT Diameter2.8 (1.8-2.4cm)PWd1.0 (0.7-1.1cm) LVDs3.8 (2.5-4.0cm)FS (%) 28.3 % SV71.5 mlLVEF(%)55.0 (>50%) M-Mode DIMENSIONS Aortic Cusp Exc2.31 (1.5-2.0cm) Aortic Valve AoV Peak Yohannes.166.1cm/sAoV VTI24.9cm AO Peak GR.11.0mmHgLVOT VTI 15.31cm AO Mean GR.7mmHgAI P 1/2 [id number] Pulmonary Valve PV Peak Vhlaljer66.3cm/s Tricuspid Valve TR P. [id number]/sRAP [id number] TR Peak Gr.[id number] Pulmonary Vein S1 Eiweexjr93.7cm/sS2 Qouabhqq61.93cm/s D2 Acwtawta23.9cm/s LEFT VENTRICLE The left ventricle is normal size. There is normal left ventricular wall thickness. The left ventricu lar systolic function is normal and the ejection fraction is within normal range. There is normal LV segmental wall motion. No left ventricle thrombus noted on this study. There is no ventricular septal defect visualized. There is no left ventricular aneurysm. There is no mass noted in the left ventric le. RIGHT VENTRICLE The right ventricle is normal size. There is normal right ventricular wall thickness. The right ventr icular systolic function is normal. ATRIA The left atrium size is mildly dilated The right atrium size is normal. The interatrial septum is int act with no evidence for an atrial septal defect or patent foramen ovale as noted on 2-D or Doppler i maging. AORTIC VALVE The aortic valve is normal in structure Doppler and Color Flow revealed mild aortic regurgitation. Th ere is no significant aortic valvular stenosis. There is no aortic valvular vegetation. MITRAL VALVE The mitral valve is normal in structure and function. There is no evidence of mitral valve prolapse. There is no mitral valve stenosis. Doppler and Color-flow revealed trace mitral regurgitation. TRICUSPID VALVE The tricuspid valve is normal in structure and function. Doppler and Color Flow revealed mild tricusp id regurgitation. There is no tricuspid valve prolapse or vegetation. There is no tricuspid valve chrissie nosis. PULMONIC VALVE The pulmonary valve is normal in structure and function. Doppler and Color Flow revealed no pulmonic valvular regurgitation. There is no pulmonic valvular stenosis. GREAT VESSELS The aortic root is normal in size. The ascending aorta is normal in size. The IVC is normal in size a nd collapses >50% with inspiration. PERICARDIAL EFFUSION There is no pleural effusion. There is a small pericardial effusion. Critical Notification Critical Value: No <Conclusion> The left ventricular systolic function is normal and the ejection fraction is within normal range. The left atrium size is mildly dilated The right atrium size is normal. Doppler and Color Flow revealed mild aortic regurgitation. Doppler and Color-flow revealed trace mitral regurgitation. Doppler and Color Flow revealed mild tricuspid regurgitation. There is a small pericardial effusion.
[2016-12-13] MEDS ORDERED: IV NORMAL SALINE 500ML BAG 500 ML IV ONE (12:00)
[2016-12-13] MEDS ORDERED: IV NORMAL SALINE 1000ML BAG 1,000 ML IV ONE (12:00)
--- NOTE | 2016-12-13 15:51 | RAD ---
PQRS Compliance Statement: One or more of the following individualized dose reduction techniques were utilized for this examination: 1. Automated exposure control 2. Adjustment of the mA and/or kV according to patient size 3. Use of iterative reconstruction technique CT of the abdomen and pelvis with contrast, 12/13/2016: History: Sepsis, fever, elevated bilirubin level. Multidetector CT imaging was performed following oral and IV administration of contrast. There are moderate streaky bibasilar opacities compatible with atelectasis. There is a trace amount of bilateral pleural fluid. The gallbladder is surgically absent. There is a large complex mass in the midportion of the right lobe of the liver involving the mary kate hepatis. It measures approximately 9 cm in greatest diameter. There appear to be multiloculated cystic or necrotic components within this process. It surrounds the right portal vein. There is a suggestion of mild biliary ductal dilatation peripheral to this mass in a portion of the right hepatic lobe. No bile duct dilatation is seen in the remainder of the liver. A tiny 9 mm low-density lesion in the posterior aspect of the left lobe of the liver is too small to definitively characterize. No pancreatic abnormality is detected. The common bile duct is unremarkable. The spleen is of normal size. There is a tiny low-density lesion in the upper pole of the right kidney which is probably a cyst. The kidneys are otherwise unremarkable. There is moderate streaky bilateral perinephric edema. There is mild aortoiliac calcific plaquing without evidence of aneurysm. No abdominal or pelvic adenopathy is seen. Several small sigmoid diverticula are noted. No paracolonic inflammatory process is seen. The bowel loops are not dilated. A portion of the appendix is visualized and it is unremarkable. No free air or significant volume of free fluid is seen in the abdomen or pelvis. IMPRESSION: 1. 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 A metastasis or a multiloculated abscess are less likely possibilities. 2. Single tiny lesion in the left lobe of liver, too small to definitively characterize. 3. Probable small right renal cyst. 4. Moderate bilateral perinephric edema. 5. Moderate streaky bibasilar atelectasis with trace pleural effusions
[2016-12-13] MEDS ORDERED: BISACODYL 5 MG TABLET.DR. PO PRN (16:45)
[2016-12-13] MEDS ORDERED: DILTIAZEM HCL 180 MG CAP.ER.24H PO ONE (16:45)
[2016-12-13] MEDS: LUBIPROSTONE 8 MCG CAPSULE PO SCH (17:32)
[2016-12-13] MEDS ORDERED: GUAIFENESIN/CODEINE 100mg/10mg 5 ML LIQUID. PO PRN ×2 (19:45)
[2016-12-13] MEDS: ATORVASTATIN CALCIUM 10 MG TABLET. PO SCH (20:10)
[2016-12-13] MEDS: GUAIFENESIN DM 200MG/20MG 10 ML SYRUP. PO PRN (20:10)
[2016-12-13] MEDS: PANTOPRAZOLE 40 MG TABLET. PO SCH (20:10)
[2016-12-13] MEDS: ZOLPIDEM 5 MG TABLET. PO PRN ×2 (20:10→22:14)
[2016-12-14] VITALS (25 sets, daily range): BP systolic 116–156; BP diastolic 62–90
--- NOTE | 2016-12-14 00:52 | CONS ---
DATE OF CONSULTATION: 12/13/2016 INFECTIOUS DISEASE CONSULTATION The patient is in room, ICU 8. REQUESTING PHYSICIAN: Dr. White. REASON FOR CONSULTATION: . HISTORY OF PRESENT ILLNESS: The patient is a pleasant 71-year-old gentleman with history of hypertension, about 2 weeks ago went to a casino with his friend and after going there, began to feel fatigued, little ill. The following day, he had developed shaking chills. He had some sinus congestion, aches all over. He does have a history of congestion in the past and so was not unusual for him to have any congestions. No complications with any sinus, with ears. He began taking ibuprofen. At one point he was treated with a course of Tamiflu. Although, we do not have a confirmed influenza screen. He did present to the Emergency Room on the , was told he had a viral infection and was told to continue with ibuprofen, which he was taking at q. 6 hours. Despite taking the ibuprofen, he continued to have fevers up to 101-102 each day and he presented to the Emergency Room on 12/12/2016. He had a white blood cell count of 12 and had a temperature of 100.2. He was admitted to the hospital and started on vancomycin and Zosyn. Cultures were obtained. He did have a little loose stool x 1 yesterday, but denied any blood in it. He has had some abdominal distention, also has had decreased urine output with some straining. Denies any falls or traumas. I was consulted last evening, he had gone into atrial fibrillation. Continued the vancomycin and Zosyn last evening and I waited to see how he responds to getting his heart rate under control. Currently, this morning he states he is feeling somewhat better, although still somewhat fatigued. Denies any other known ill contacts. PAST MEDICAL HISTORY: Positive for hypertension, history of cataracts, history of Zendejas esophagitis, history of diverticulitis. PAST SURGICAL HISTORY: Positive for cataract surgery, tonsillectomy, cholecystectomy, and prostate resection. REVIEW OF SYSTEMS: Otherwise negative except for mentioned above. ALLERGIES: No known drug allergies. SOCIAL HISTORY: Quit smoking at age 29. He was a weekend smoker. No gross alcohol. No pets at home. FAMILY HISTORY: Positive for heart disease. Brother had cardiac surgery and heart attack. CURRENT MEDICATIONS: Include vancomycin, Zosyn, Cardizem drip, Pulmicort, Lipitor, Zyrtec, hydrochlorothiazide, Protonix. Other meds are available and reviewed in the chart. PHYSICAL EXAMINATION: VITAL SIGNS: T-max has been 100.2, currently 98.3, pulse 109, respirations 16, blood pressure 129/74, satting 96% on room air. CONSTITUTIONAL: He is very pleasant, he is cooperative. He is in no acute distress. He is sitting in chair, was moving around easily prior to coming into the room, although little slow. HEENT: Pupils are status post cataract surgery. He had normal conjunctivae. Oral cavity, oropharynx has good dentition, no petechia. NECK: Supple, full range of motion, no JVD. LUNGS: Some mild crackles in the base that improved with cough. HEART: S1 and S2. ABDOMEN: Mildly distended, positive bowel sounds, no guarding or tenderness. EXTREMITIES: No clubbing, cyanosis. He has trace edema. SKIN: Warm to touch without signs of rash. NEUROLOGIC: He is nonfocal, moves all extremities. PSYCHIATRIC: Affect is pleasant. LABORATORY VALUES: White count today is 16.4, increased from 12, hemoglobin 11.2, platelets 397, neutrophils of 91. He has 15% bands on presentation. Creatinine was 1.4 on presentation, currently is 1. Glucose is 110. Liver function study tests were essentially normal, although his total bilirubin was mildly elevated. Urinalysis was clean. Influenza screen, strep test, rapid A were negative. Chest x-ray performed, chronic changes, no acute process. IMPRESSION: 1. Gram-negative sepsis present on admission, was called as we were discussing the case this morning. 2. Fever. 3. Leukocytosis. 4. Atrial fibrillation that is new. 5. Abdominal discomfort. RECOMMENDATIONS: For now, discontinue the vancomycin with gram-negative sepsis. We will discontinue the Zosyn as his white blood cell has increased despite several doses of Zosyn. We will add meropenem for now, add procalcitonin and sedimentation rate. He has chronic back pain that typically improves with movement, also had a troponin, creatinine kinase, await CT scan of abdomen and pelvis that was ordered by Dr. White. We will follow up on cultures, labs, repeat his LFTs this morning. This was discussed with Dr. White and discussed with the family. Thank you for allowing us to participate in the patient's care. If you have any questions, please do not hesitate to contact me. SARIAH YEE MD DR: TIMO/tianna JOB#: [id number] / [id number]
[2016-12-14 05:07] LABS: BASO # 0.1 x10^3/uL (0.0-0.2); BASO % 1 % (0-3); EOS % 1 % (0-3); HEMATOCRIT 28.9 % (39.0-53.0); HEMOGLOBIN 9.7 g/dL (13.0-17.5); LYMPH # 0.8 x10^3/uL (1.0-4.8); LYMPH % 7 % (24-48); MEAN CORPUSCULAR HEMOGLOBIN 33 pg (25-35); MEAN CORPUSCULAR HGB CONC 34 g/dL (31-37); MEAN CORPUSCULAR VOLUME 97 fL (79-100); MONO % 11 % (0-9); NEUT % 81 % (31-73); PLATELET COUNT 395 x10^3/uL (140-400); RED BLOOD COUNT 2.98 x10^6/uL (4.30-5.70); RED CELL DISTRIBUTION WIDTH 13.5 % (11.5-14.5); WHITE BLOOD COUNT 11.8 x10^3/uL (4.0-11.0)
[2016-12-14] MEDS: MEROPENEM 1 GM in IV NORMAL SALINE 100ML 100 ML IV SCH ×3 (06:00→21:50)
[2016-12-14 06:15] LABS: ALBUMIN 1.9 g/dL (3.4-5.0); ALBUMIN/GLOBULIN RATIO 0.5 (1.0-1.7); CALCIUM 7.8 mg/dL (8.5-10.1); CREATININE 0.8 mg/dL (0.7-1.3); GFR 95.6; TOTAL BILIRUBIN 0.7 mg/dL (0.2-1.0); TOTAL PROTEIN 5.7 g/dL (6.4-8.2)
[2016-12-14] MEDS: DILTIAZEM HCL 180 MG CAP.ER.24H PO SCH (08:10)
--- NOTE | 2016-12-14 08:11 | PDOC ---
Infectious Disease Note Subjective Subjective Some better. Mild abd pain last pm. ROS ROS GEN: Denies fevers, chills, sweats HEENT: Denies blurred vision, sore throat CV: Denies chest pain RESP: Denies shortness of air, cough GI: Denies n/v/d NEURO: Denies confusion, dizziness MSK: Denies weakness, joint pain/swelling Vital Sign Vital Signs Vital Signs Date Time Temp Pulse Resp B/P Pulse Ox O2 Delivery O2 Flow Rate FiO2 12/14/16 07:00 75 22 127/85 94 Room Air 12/14/16 06:00 98.2 98.2 Physical Exam PHYSICAL EXAM GENERAL: NAD, Alert HEENT: PERRL, OC/OP- clear NECK: Supple, no JVD, no LN LUNGS: Clear HEART: S1S2, no gallop, no murmur ABD: Soft, NT, no organomegaly, no rebound, obese EXT: No edema, no cyanosis DIRECTOR OF INSTRUMENTAL MUSIC: Alert, oriented x 3, no focal neurologic deficit SKIN: No rash IV: ok Labs Lab Laboratory Tests Test 12/14/16 04:28 White Blood Count 11.8x10^3/uL (4.0-11.0) Red Blood Count 2.98x10^6/uL (4.30-5.70) Hemoglobin 9.7g/dL (13.0-17.5) Hematocrit 28.9% (39.0-53.0) Mean Corpuscular Volume 97fL (79-100) Mean Corpuscular Hemoglobin 33pg (25-35) Mean Corpuscular Hemoglobin Concent 34g/dL (31-37) Red Cell Distribution Width 13.5% (11.5-14.5) Platelet Count 395x10^3/uL (140-400) Neutrophils (%) (Auto) 81% (31-73) Lymphocytes (%) (Auto) 7% (24-48) Monocytes (%) (Auto) 11% (0-9) Eosinophils (%) (Auto) 1% (0-3) Basophils (%) (Auto) 1% (0-3) Neutrophils # (Auto) 9.5x10^3uL (1.8-7.7) Lymphocytes # (Auto) 0.8x10^3/uL (1.0-4.8) Monocytes # (Auto) 1.3x10^3/uL (0.0-1.1) Eosinophils # (Auto) 0.1x10^3/uL (0.0-0.7) Basophils # (Auto) 0.1x10^3/uL (0.0-0.2) Sodium Level 139mmol/L (136-145) Potassium Level 3.0mmol/L (3.5-5.1) Chloride Level 104mmol/L (98-107) Carbon Dioxide Level 23mmol/L (21-32) Anion Gap 12 (6-14) Blood Urea Nitrogen 10mg/dL (8-26) Creatinine 0.8mg/dL (0.7-1.3) Estimated GFR (Cockcroft-Gault) 95.6 BUN/Creatinine Ratio 13 (6-20) Glucose Level 115mg/dL (70-99) Calcium Level 7.8mg/dL (8.5-10.1) Total Bilirubin 0.7mg/dL (0.2-1.0) Aspartate Amino Transf (AST/SGOT) 29U/L (15-37) Alanine Aminotransferase (ALT/SGPT) 40U/L (16-63) Alkaline Phosphatase 103U/L (46-116) Total Protein 5.7g/dL (6.4-8.2) Albumin 1.9g/dL (3.4-5.0) Albumin/Globulin Ratio 0.5 (1.0-1.7) Objective Assessment GNR - sepsis -POA 12/12 Liver lesion ? abscess Fever Leukocytosis - better Afib -new Abd discomfort Plan Plan of Care Await biopsy Cont Meropenem F/u cults/labs D/w Daughter SARIAH YEE MD Dec 14, 2016 08:10
[2016-12-14] MEDS ORDERED: POTASSIUM CHLORIDE 20 MEQ TABLET.ER. PO ONE (08:45)
[2016-12-14] MEDS: BUDESONIDE 0.5 MG/2 ML NEBU NEB SCH ×2 (08:47→20:00)
[2016-12-14] MEDS: IPRATRPIUM/ALBUTEROL 0.5/2.5MG 3 ML NEBU. NEB SCH ×4 (08:47→20:00)
--- NOTE | 2016-12-14 08:51 | PDOC ---
PROGRESS NOTES Subjective Subjective Patient reports feeling well overall this morning. Reports that he has been coughing more after the breathing treatments but is breathing well without any shortness of breath this morning. Objective Objective Vital Signs Date Time Temp Pulse Resp B/P Pulse Ox O2 Delivery O2 Flow Rate FiO2 12/14/16 08:10 79 118/65 12/14/16 07:00 22 94 Room Air 12/14/16 06:00 98.2 98.2 Intake and Output 12/14/16 07:00 Intake Total 1007 ml Output Total 200 ml Balance 807 ml Intake Oral 825 ml IV Total 182 ml Output Urine Total 200 ml # Voids 8 # Bowel Movements 1 Physical Exam Heart: Regular rate, Normal S1, Normal S2 Extremities: No edema General: Alert, Oriented X3 Lungs: Clear to auscultation Neuro: Normal speech Psych/Mental Status: Mental status NL Assessment Assessment Problems Medical Problems: (1) Atrial fibrillation with RVR Status: Acute (2) Dehydration Status: Acute (3) FUO (fever of unknown origin) Status: Acute (4) Generalized weakness Status: Acute (5) Hypokalemia Status: Acute (6) Leukocytosis Status: Acute (7) Sepsis due to undetermined organism Status: Acute (8) Liver lesion Status: Acute Plan Plan of Care Problems Medical Problems: (1) Atrial fibrillation with RVR- resolved, converted with IV Diltiazem and hydration and dose of digoxin, Continue po Diltiazem Status: Acute (2) Dehydration-resolved with IVF but now hypokalemic so will supplement po and will stop HCTZ which was part of DiovanHCT of home meds Status: Acute (3) Sepsis, (Gram negative Rods) FUO (fever of now known origin)-patient afebrile this am but recently spiked to 102, awaiting culture results, liver biopsy consistent with abscess, blood cultures reordered with recent fever since it occurred after liver biopsy and he now has a pigtail catheter in his liver Status: Acute (4) Generalized weakness-encourage movement up to chair today Status: Acute (5) Hypokalemia-20 mEq of Potassium to be given today Status: Acute (6) Leukocytosis-improved, continue to monitor, improved, appears to be due to liver mass (prob abscess) found on imaging Status: Acute (7) Sepsis due to undetermined organism-Continue Meropenem, await culture results Status: Acute (8) Liver lesion-biopsy today, now done and consistent with abscess Status: Acute Comment Review of Relevant I have reviewed the following items norma (where applicable) has been applied. Labs Laboratory Tests Test 12/12/16 15:30 12/12/16 16:15 12/12/16 16:22 12/12/16 20:16 White Blood Count 12.0x10^3/uL (4.0-11.0) Red Blood Count 3.59x10^6/uL (4.30-5.70) Hemoglobin 11.6g/dL (13.0-17.5) Hematocrit 35.0% (39.0-53.0) Mean Corpuscular Volume 98fL (79-100) Mean Corpuscular Hemoglobin 32pg (25-35) Mean Corpuscular Hemoglobin Concent 33g/dL (31-37) Red Cell Distribution Width 13.3% (11.5-14.5) Platelet Count 409x10^3/uL (140-400) Neutrophils (%) (Auto) 96% (31-73) Lymphocytes (%) (Auto) 2% (24-48) Monocytes (%) (Auto) 1% (0-9) Eosinophils (%) (Auto) 0% (0-3) Basophils (%) (Auto) 0% (0-3) Neutrophils # (Auto) 11.4x10^3uL (1.8-7.7) Lymphocytes # (Auto) 0.3x10^3/uL (1.0-4.8) Monocytes # (Auto) 0.2x10^3/uL (0.0-1.1) Eosinophils # (Auto) 0.0x10^3/uL (0.0-0.7) Basophils # (Auto) 0.0x10^3/uL (0.0-0.2) Segmented Neutrophils % 81% (35-66) Band Neutrophils % 15% (0-9) Lymphocytes % 2% (24-48) Monocytes % 2% (0-10) Platelet Estimate Adequate (ADEQUATE) Sodium Level 134mmol/L (136-145) Potassium Level 3.1mmol/L (3.5-5.1) Chloride Level 97mmol/L (98-107) Carbon Dioxide Level 24mmol/L (21-32) Anion Gap 13 (6-14) Blood Urea Nitrogen 24mg/dL (8-26) Creatinine 1.4mg/dL (0.7-1.3) Estimated GFR (Cockcroft-Gault) 50.1 BUN/Creatinine Ratio 17 (6-20) Glucose Level 124mg/dL (70-99) Lactic Acid Level 1.6mmol/L (0.4-2.0) Calcium Level 8.5mg/dL (8.5-10.1) Total Bilirubin 1.4mg/dL (0.2-1.0) Aspartate Amino Transf (AST/SGOT) 33U/L (15-37) Alanine Aminotransferase (ALT/SGPT) 61U/L (16-63) Alkaline Phosphatase 149U/L (46-116) Total Protein 7.2g/dL (6.4-8.2) Albumin 2.6g/dL (3.4-5.0) Albumin/Globulin Ratio 0.6 (1.0-1.7) Lipase 125U/L (73-393) Thyroid Stimulating Hormone (TSH) 1.231uIU/mL (0.358-3.74) Urine Collection Type Unknown Urine Color Alma Delia Urine Clarity Clear Urine pH 6.0 Urine Specific [place] 1.015 Urine Protein Negativemg/dL (NEG-TRACE) Urine Glucose (UA) Negativemg/dL (NEG) Urine Ketones (Stick) Tracemg/dL (NEG) Urine Blood Negative (NEG) Urine Nitrite Negative (NEG) Urine Bilirubin Small (NEG) Urine Urobilinogen Dipstick 2.0mg/dL (0.2 mg/dL) Urine Leukocyte Esterase Negative (NEG) Urine RBC Occ/HPF (0-2) Urine WBC 1-4/HPF (0-4) Urine Squamous Epithelial Cells Occ/LPF Urine Bacteria 0/HPF (0-FEW) Urine Cellular Casts Occ/HPF Urine Hyaline Casts Moderate/HPF Urine Mucus Mod/LPF Influenza Type A Antigen Negative (NEGATIVE) Influenza Type B Antigen Negative (NEGATIVE) Nasal Screen MRSA (PCR) Negative (Negative) Test 12/12/16 21:49 12/13/16 06:50 12/14/16 04:28 Group A Streptococcus Rapid Negative (NEGATIVE) White Blood Count 16.4x10^3/uL (4.0-11.0) 11.8x10^3/uL (4.0-11.0) Red Blood Count 3.44x10^6/uL (4.30-5.70) 2.98x10^6/uL (4.30-5.70) Hemoglobin 11.2g/dL (13.0-17.5) 9.7g/dL (13.0-17.5) Hematocrit 33.6% (39.0-53.0) 28.9% (39.0-53.0) Mean Corpuscular Volume 98fL (79-100) 97fL (79-100) Mean Corpuscular Hemoglobin 33pg (25-35) 33pg (25-35) Mean Corpuscular Hemoglobin Concent 33g/dL (31-37) 34g/dL (31-37) Red Cell Distribution Width 13.3% (11.5-14.5) 13.5% (11.5-14.5) Platelet Count 397x10^3/uL (140-400) 395x10^3/uL (140-400) Neutrophils (%) (Auto) 91% (31-73) 81% (31-73) Lymphocytes (%) (Auto) 3% (24-48) 7% (24-48) Monocytes (%) (Auto) 5% (0-9) 11% (0-9) Eosinophils (%) (Auto) 0% (0-3) 1% (0-3) Basophils (%) (Auto) 0% (0-3) 1% (0-3) Neutrophils # (Auto) 14.8x10^3uL (1.8-7.7) 9.5x10^3uL (1.8-7.7) Lymphocytes # (Auto) 0.6x10^3/uL (1.0-4.8) 0.8x10^3/uL (1.0-4.8) Monocytes # (Auto) 0.9x10^3/uL (0.0-1.1) 1.3x10^3/uL (0.0-1.1) Eosinophils # (Auto) 0.1x10^3/uL (0.0-0.7) 0.1x10^3/uL (0.0-0.7) Basophils # (Auto) 0.0x10^3/uL (0.0-0.2) 0.1x10^3/uL (0.0-0.2) Erythrocyte Sedimentation Rate 90 (0-15) Sodium Level 138mmol/L (136-145) 139mmol/L (136-145) Potassium Level 3.7mmol/L (3.5-5.1) 3.0mmol/L (3.5-5.1) Chloride Level 104mmol/L (98-107) 104mmol/L (98-107) Carbon Dioxide Level 21mmol/L (21-32) 23mmol/L (21-32) Anion Gap 13 (6-14) 12 (6-14) Blood Urea Nitrogen 16mg/dL (8-26) 10mg/dL (8-26) Creatinine 1.0mg/dL (0.7-1.3) 0.8mg/dL (0.7-1.3) Estimated GFR (Cockcroft-Gault) 73.9 95.6 Glucose Level 110mg/dL (70-99) 115mg/dL (70-99) Calcium Level 8.0mg/dL (8.5-10.1) 7.8mg/dL (8.5-10.1) Total Bilirubin 1.1mg/dL (0.2-1.0) 0.7mg/dL (0.2-1.0) Direct Bilirubin 0.5mg/dL (0.0-0.2) Aspartate Amino Transf (AST/SGOT) 30U/L (15-37) 29U/L (15-37) Alanine Aminotransferase (ALT/SGPT) 49U/L (16-63) 40U/L (16-63) Alkaline Phosphatase 124U/L (46-116) 103U/L (46-116) Creatine Kinase 117U/L (39-308) Troponin I Quantitative < 0.017ng/mL (0.000-0.055) Total Protein 6.6g/dL (6.4-8.2) 5.7g/dL (6.4-8.2) Albumin 2.2g/dL (3.4-5.0) 1.9g/dL (3.4-5.0) Procalcitonin 5.69ng/mL (0.00-0.10) BUN/Creatinine Ratio 13 (6-20) Albumin/Globulin Ratio 0.5 (1.0-1.7) Laboratory Tests Test 12/14/16 04:28 White Blood Count 11.8x10^3/uL (4.0-11.0) Red Blood Count 2.98x10^6/uL (4.30-5.70) Hemoglobin 9.7g/dL (13.0-17.5) Hematocrit 28.9% (39.0-53.0) Mean Corpuscular Volume 97fL (79-100) Mean Corpuscular Hemoglobin 33pg (25-35) Mean Corpuscular Hemoglobin Concent 34g/dL (31-37) Red Cell Distribution Width 13.5% (11.5-14.5) Platelet Count 395x10^3/uL (140-400) Neutrophils (%) (Auto) 81% (31-73) Lymphocytes (%) (Auto) 7% (24-48) Monocytes (%) (Auto) 11% (0-9) Eosinophils (%) (Auto) 1% (0-3) Basophils (%) (Auto) 1% (0-3) Neutrophils # (Auto) 9.5x10^3uL (1.8-7.7) Lymphocytes # (Auto) 0.8x10^3/uL (1.0-4.8) Monocytes # (Auto) 1.3x10^3/uL (0.0-1.1) Eosinophils # (Auto) 0.1x10^3/uL (0.0-0.7) Basophils # (Auto) 0.1x10^3/uL (0.0-0.2) Sodium Level 139mmol/L (136-145) Potassium Level 3.0mmol/L (3.5-5.1) Chloride Level 104mmol/L (98-107) Carbon Dioxide Level 23mmol/L (21-32) Anion Gap 12 (6-14) Blood Urea Nitrogen 10mg/dL (8-26) Creatinine 0.8mg/dL (0.7-1.3) Estimated GFR (Cockcroft-Gault) 95.6 BUN/Creatinine Ratio 13 (6-20) Glucose Level 115mg/dL (70-99) Calcium Level 7.8mg/dL (8.5-10.1) Total Bilirubin 0.7mg/dL (0.2-1.0) Aspartate Amino Transf (AST/SGOT) 29U/L (15-37) Alanine Aminotransferase (ALT/SGPT) 40U/L (16-63) Alkaline Phosphatase 103U/L (46-116) Total Protein 5.7g/dL (6.4-8.2) Albumin 1.9g/dL (3.4-5.0) Albumin/Globulin Ratio 0.5 (1.0-1.7) Microbiology 12/12/16 Blood Culture - Final, Complete Medications Current Medications Sodium Chloride (Iv Sodium Chloride 0.9% 1000ml Bag) 1,000 ml @ 1,000 mls/hr Q1H IV Last administered on 12/12/16 15:55; Start 12/12/16 at 15:45; Stop at 16:44; Status DC Ondansetron HCl (Zofran) 4 mg 1X ONCE IV Last administered on 12/12/16 15:58 ; Start 12/12/16 at 15:45; Stop 12/12/16 at 15:48; Status DC Ketorolac Tromethamine (Toradol) 30 mg 1X ONCE IV Last administered on 15:58; Start 12/12/16 at 15:45; Stop 12/12/16 at 15:48; Status DC Acetaminophen (Tylenol) 650 mg 1X ONCE PO Last administered on 12/12/16 16:02 ; Start 12/12/16 at 16:00; Stop 12/12/16 at 16:01; Status DC Ondansetron HCl 4 mg 4 mg PRN Q8HRS PRN IV NAUSEA/VOMITING; Start 12/12/16 at 17:30; Stop 12/13/16 at 17:29; Status DC Sodium Chloride (Iv Sodium Chloride 0.9% 1000ml Bag) 1,000 ml @ 125 mls/hr Q8H IV Last administered on 12/12/16 23:00; Start 12/12/16 at 17:45; Stop at 17:44; Status DC Acetaminophen (Tylenol) 650 mg PRN Q4HRS PRN PO FEVER; Start 12/12/16 at 17:30 ; Stop 12/13/16 at 17:29; Status DC Vancomycin HCl (Vanco Per Pharmacy) 1 each PRN DAILY PRN MC SEE COMMENTS Last administered on 12/12/16 19:56; Start 12/12/16 at 18:45; Stop 12/13/16 at 08:21 ; Status DC Piperacillin Sod/ Tazobactam Sod 1 each 1 each PRN DAILY PRN MC SEE COMMENTS; Start 12/12/16 at 18:45; Stop 12/13/16 at 08:23; Status DC Diltiazem HCl/ Dextrose (Cardizem) 125 ml @ 0 mls/hr CONT PRN IV SEE I/O RECORD Last administered on 12/13/16 05:54; Start 12/12/16 at 18:45; Stop 12/13 at 16:44; Status DC Diltiazem HCl 10 mg 10 mg 1X ONCE IVP Last administered on 12/12/16 18:38; Start 12/12/16 at 18:45; Stop 12/12/16 at 18:46; Status DC Vancomycin HCl 2 gm/Sodium Chloride 500 ml @ 250 mls/hr 1X ONCE IV Last administered on 12/12/16 19:26; Start 12/12/16 at 19:00; Stop 12/12/16 at 20:59 ; Status DC Piperacillin Sod/ Tazobactam Sod 3.375 gm/Sodium Chloride 50 ml @ 100 mls/hr 1X ONCE IV Last administered on 12/12/16 18:52; Start 12/12/16 at 19:00; Stop 12/12/16 at 19:29; Status DC Piperacillin Sod/ Tazobactam Sod/ Sodium Chloride (Zosyn/Iv Sodium Chloride 0.9 % 50ml) 50 ml @ 100 mls/hr Q6HRS IV Last administered on 12/13/16 05:48; Start 12/13/16 at 00:00; Stop 12/13/16 at 08:23; Status DC Diltiazem HCl 20 mg 20 mg 1X ONCE IVP Last administered on 12/12/16 19:15; Start 12/12/16 at 19:15; Stop 12/12/16 at 19:17; Status DC Sodium Chloride 3,060 ml @ 765 mls/hr Q4H IV Last administered on 12/12/16 21 :03; Start 12/12/16 at 19:30; Stop 12/12/16 at 23:29; Status DC Vancomycin HCl/ Sodium Chloride (Iv Sodium Chloride 0.9% 500ml Bag) 500 ml @ 250 mls/hr Q12H IV Last administered on 12/13/16 05:52; Start 12/13/16 at 07: 00; Stop 12/13/16 at 08:21; Status DC Vancomycin HCl 1 each 1X ONCE MC ; Start 12/14/16 at 06:30; Stop 12/14/16 at 06 :30; Status DC Digoxin (Lanoxin) 500 mcg 1X ONCE IV Last administered on 12/12/16 21:01; Start 12/12/16 at 21:00; Stop 12/12/16 at 21:01; Status DC Potassium Chloride (Klor-Con) 40 meq 1X ONCE PO Last administered on 21:41; Start 12/12/16 at 22:00; Stop 12/12/16 at 22:01; Status DC Pantoprazole Sodium (Protonix) 40 mg DAILYAC PO ; Start 12/13/16 at 07:30; Stop 12/13/16 at 07:30; Status DC Pantoprazole Sodium (Protonix) 40 mg HS PO Last administered on 12/13/16 20:10 ; Start 12/12/16 at 23:30 Aspirin (Ecotrin) 81 mg DAILY PO Last administered on 12/13/16 10:03; Start at 09:00 Cetirizine HCl (Zyrtec) 10 mg DAILY PO Last administered on 12/13/16 10:02; Start 12/13/16 at 09:00 Cyanocobalamin (Vitamin B-12) 1,000 mcg DAILY PO Last administered on 10:03; Start 12/13/16 at 09:00 Atorvastatin Calcium (Lipitor) 10 mg QHS PO Last administered on 12/13/16 20: 10; Start 12/13/16 at 21:00 Non-Formulary Medication 1 puff BID IH ; Start 12/13/16 at 09:00; Stop 12/13/16 at 09:00; Status DC Losartan Potassium (Cozaar) 50 mg DAILY PO Last administered on 12/13/16 10:03 ; Start 12/13/16 at 09:00 Hydrochlorothiazide (Microzide) 12.5 mg DAILY PO Last administered on 10:02; Start 12/13/16 at 09:00 Albuterol/ Ipratropium (Duoneb) 3 ml RTQID NEB Last administered on 12/13/16 19:45; Start 12/13/16 at 08:30 Budesonide 0.5 mg 0.5 mg RTBID NEB Last administered on 12/13/16 19:45; Start 12/13/16 at 08:30 Meropenem/Sodium Chloride (Merrem/Iv Sodium Chloride 0.9% 100ml) 100 ml @ 200 mls/hr Q8HRS IV Last administered on 12/14/16 06:00; Start 12/13/16 at 08:30 Iohexol (Omnipaque 240 Mg/ml) 30 ml 1X ONCE PO Last administered on 12/13/16 09:15; Start 12/13/16 at 09:15; Stop 12/13/16 at 09:16; Status DC Iohexol (Omnipaque 300 Mg/ml) 75 ml 1X ONCE IV Last administered on 12/13/16 10:34; Start 12/13/16 at 09:15; Stop 12/13/16 at 09:16; Status DC Info 1 each 1 each PRN DAILY PRN MC SEE COMMENTS; Start 12/13/16 at 09:15; Stop 12/15/16 at 09:14 Sodium Chloride 500 ml @ 500 mls/hr 1X ONCE IV Last administered on 12:00; Start 12/13/16 at 12:00; Stop 12/13/16 at 12:59; Status DC Sodium Chloride (Iv Sodium Chloride 0.9% 1000ml Bag) 1,000 ml @ 150 mls/hr 1X ONCE IV Last administered on 12/13/16 12:00; Start 12/13/16 at 12:00; Stop at 18:39; Status DC Zolpidem Tartrate (Ambien) 5 mg PRN QHS PRN PO INSOMNIA, MAY REPEAT IN 1HR Last administered on 12/13/16 22:14; Start 12/13/16 at 16:45 Bisacodyl (Dulcolax Tab) 10 mg PRN DAILY PRN PO CONSTIPATION; Start 12/13/16 at 16:45 Lubiprostone (Amitiza) 8 mcg BIDWMEALS PO Last administered on 12/13/16 17:32 ; Start 12/13/16 at 17:00 Diltiazem HCl (Cardizem 24hr Cd) 180 mg 1X ONCE PO Last administered on 17:32; Start 12/13/16 at 16:45; Stop 12/13/16 at 16:48; Status DC Diltiazem HCl (Cardizem 24hr Cd) 180 mg DAILY PO Last administered on 08:10; Start 12/14/16 at 09:00 Guaifenesin (Robitussin Dm) 10 ml PRN Q4HRS PRN PO COUGH Last administered on 20:10; Start 12/13/16 at 19:45 Guaifenesin/ Codeine Phosphate (Robitussin Ac) 5 ml PRN Q4HRS PRN PO COUGH; Start 12/13/16 at 19:45 Guaifenesin/ Codeine Phosphate (Robitussin Ac) 10 ml PRN Q4HRS PRN PO COUGH; Start 12/13/16 at 19:45 Active Scripts Active Reported Vitamin B-12 (Cyanocobalamin (Vitamin B-12)) 1,000 Mcg Tablet 1 Tab PO DAILY All Day Allergy (Cetirizine Hcl) 10 Mg Tablet 10 Mg PO Advair 250-50 Diskus (Fluticasone/Salmeterol) 1 Each Disk.w.dev 1 Puff IH BID Omeprazole 20 Mg Capsule. 20 Mg PO BID Simvastatin 20 Mg Tablet 1 Tab PO QHS Valsartan-Hctz 80-12.5 Mg Tab (Valsartan/Hydrochlorothiazide) 1 Each Tablet 1 Each PO DAILY Aspir 81 (Aspirin) 81 Mg Tablet. 1 Tab PO DAILY Vitals/I & O Vital Sign - Last 24 Hours 12/13/16 12/13/16 12/13/16 12/13/16 10:00 10:03 11:00 11:19 Pulse 102 104 98 Resp 16 18 B/P 135/67 135/67 137/79 Pulse Ox 96 99 97 O2 Delivery Room Air Room Air Room Air 12/13/16 12/13/16 12/13/16 12/13/16 12:00 12:00 13:00 14:00 Temp 98.7 98.7 Pulse 109 94 80 Resp 18 19 20 B/P 134/74 138/79 147/69 Pulse Ox 96 92 93 O2 Delivery Room Air Room Air Room Air Room Air 12/13/16 12/13/16 12/13/16 12/13/16 15:00 16:00 16:00 16:08 Temp 99.7 99.7 Pulse 88 88 Resp 20 18 B/P 140/72 138/69 Pulse Ox 95 95 96 O2 Delivery Room Air Room Air Room Air Room Air 12/13/16 12/13/16 12/13/16 12/13/16 17:00 17:32 18:00 19:00 Pulse 96 96 97 84 Resp 8 19 16 B/P 154/64 159/63 142/69 125/62 Pulse Ox 96 95 94 O2 Delivery Room Air Room Air Room Air 12/13/16 12/13/16 12/13/16 12/13/16 19:47 20:00 20:00 21:00 Temp 99.2 99.2 Pulse 84 78 Resp 16 16 B/P 142/57 164/72 Pulse Ox 96 95 96 O2 Delivery Room Air Room Air Room Air Room Air 12/13/16 12/13/16 12/14/16 12/14/16 22:00 23:00 00:00 00:00 Temp 98.8 98.8 Pulse 77 80 84 Resp 20 22 B/P 154/75 133/61 143/78 Pulse Ox 95 94 92 O2 Delivery Room Air Room Air Room Air Room Air 12/14/16 12/14/16 12/14/16 12/14/16 01:00 02:00 03:00 04:00 Pulse 74 79 77 72 Resp 16 20 22 25 B/P 126/72 145/76 127/66 139/68 Pulse Ox 94 94 92 94 O2 Delivery Room Air Room Air Room Air Room Air 12/14/16 12/14/16 12/14/16 12/14/16 04:00 05:00 06:00 07:00 Temp 98.2 98.2 Pulse 82 77 75 Resp 20 20 22 B/P 127/72 152/90 127/85 Pulse Ox 96 95 94 O2 Delivery Room Air Room Air Room Air Room Air 12/14/16 08:10 Pulse 79 B/P 118/65 Intake and Output 12/13/16 12/13/16 12/14/16 15:00 23:00 07:00 Intake Total 100 ml 225 ml 682 ml Output Total 200 ml Balance -100 ml 225 ml 682 ml Benigno WAKEFIELD MD Dec 14, 2016 08:51
[2016-12-14 09:44] LABS: INR 1.2 (0.8-1.1); PROTHROMBIN TIME PATIENT 14.7 SEC (11.7-14.0)
--- NOTE | 2016-12-14 10:04 | PDOC ---
PROGRESS NOTES Subjective Subjective No new complaints today. Pt stated he did not have any chest pain, SOB, N, V, diaphoresis. Pt converted from A-fib to sinus rhythm yesterday. Pt had no complaints of palpitations. Objective Objective Vital Signs Date Time Temp Pulse Resp B/P Pulse Ox O2 Delivery O2 Flow Rate FiO2 12/14/16 09:00 88 28 146/77 96 Room Air 12/14/16 08:00 98.6 98.6 Intake and Output 12/14/16 07:00 Intake Total 1007 ml Output Total 200 ml Balance 807 ml Intake Oral 825 ml IV Total 182 ml Output Urine Total 200 ml # Voids 8 # Bowel Movements 1 Physical Exam Physical Exam RRR, S1, S2 - no murmur, rub Assessment Assessment Problems Medical Problems: (1) Atrial fibrillation with RVR Status: Acute (2) Dehydration Status: Acute (3) FUO (fever of unknown origin) Status: Acute (4) Generalized weakness Status: Acute (5) Hypokalemia Status: Acute (6) Leukocytosis Status: Acute (7) Sepsis due to undetermined organism Status: Acute Plan Plan of Care A fib with RVR - resolved Cardizem switched from IV to oral Continue fluid management Comment Review of Relevant I have reviewed the following items norma (where applicable) has been applied. Labs Laboratory Tests Test 12/12/16 15:30 12/12/16 16:15 12/12/16 16:22 12/12/16 20:16 White Blood Count 12.0x10^3/uL (4.0-11.0) Red Blood Count 3.59x10^6/uL (4.30-5.70) Hemoglobin 11.6g/dL (13.0-17.5) Hematocrit 35.0% (39.0-53.0) Mean Corpuscular Volume 98fL (79-100) Mean Corpuscular Hemoglobin 32pg (25-35) Mean Corpuscular Hemoglobin Concent 33g/dL (31-37) Red Cell Distribution Width 13.3% (11.5-14.5) Platelet Count 409x10^3/uL (140-400) Neutrophils (%) (Auto) 96% (31-73) Lymphocytes (%) (Auto) 2% (24-48) Monocytes (%) (Auto) 1% (0-9) Eosinophils (%) (Auto) 0% (0-3) Basophils (%) (Auto) 0% (0-3) Neutrophils # (Auto) 11.4x10^3uL (1.8-7.7) Lymphocytes # (Auto) 0.3x10^3/uL (1.0-4.8) Monocytes # (Auto) 0.2x10^3/uL (0.0-1.1) Eosinophils # (Auto) 0.0x10^3/uL (0.0-0.7) Basophils # (Auto) 0.0x10^3/uL (0.0-0.2) Segmented Neutrophils % 81% (35-66) Band Neutrophils % 15% (0-9) Lymphocytes % 2% (24-48) Monocytes % 2% (0-10) Platelet Estimate Adequate (ADEQUATE) Sodium Level 134mmol/L (136-145) Potassium Level 3.1mmol/L (3.5-5.1) Chloride Level 97mmol/L (98-107) Carbon Dioxide Level 24mmol/L (21-32) Anion Gap 13 (6-14) Blood Urea Nitrogen 24mg/dL (8-26) Creatinine 1.4mg/dL (0.7-1.3) Estimated GFR (Cockcroft-Gault) 50.1 BUN/Creatinine Ratio 17 (6-20) Glucose Level 124mg/dL (70-99) Lactic Acid Level 1.6mmol/L (0.4-2.0) Calcium Level 8.5mg/dL (8.5-10.1) Total Bilirubin 1.4mg/dL (0.2-1.0) Aspartate Amino Transf (AST/SGOT) 33U/L (15-37) Alanine Aminotransferase (ALT/SGPT) 61U/L (16-63) Alkaline Phosphatase 149U/L (46-116) Total Protein 7.2g/dL (6.4-8.2) Albumin 2.6g/dL (3.4-5.0) Albumin/Globulin Ratio 0.6 (1.0-1.7) Lipase 125U/L (73-393) Thyroid Stimulating Hormone (TSH) 1.231uIU/mL (0.358-3.74) Urine Collection Type Unknown Urine Color [place] Delia Urine Clarity Clear Urine pH 6.0 Urine Specific [place] 1.015 Urine Protein Negativemg/dL (NEG-TRACE) Urine Glucose (UA) Negativemg/dL (NEG) Urine Ketones (Stick) Tracemg/dL (NEG) Urine Blood Negative (NEG) Urine Nitrite Negative (NEG) Urine Bilirubin Small (NEG) Urine Urobilinogen Dipstick 2.0mg/dL (0.2 mg/dL) Urine Leukocyte Esterase Negative (NEG) Urine RBC Occ/HPF (0-2) Urine WBC 1-4/HPF (0-4) Urine Squamous Epithelial Cells Occ/LPF Urine Bacteria 0/HPF (0-FEW) Urine Cellular Casts Occ/HPF Urine Hyaline Casts Moderate/HPF Urine Mucus Mod/LPF Influenza Type A Antigen Negative (NEGATIVE) Influenza Type B Antigen Negative (NEGATIVE) Nasal Screen MRSA (PCR) Negative (Negative) Test 12/12/16 21:49 12/13/16 06:50 12/14/16 04:28 12/14/16 08:40 Group A Streptococcus Rapid Negative (NEGATIVE) White Blood Count 16.4x10^3/uL (4.0-11.0) 11.8x10^3/uL (4.0-11.0) Red Blood Count 3.44x10^6/uL (4.30-5.70) 2.98x10^6/uL (4.30-5.70) Hemoglobin 11.2g/dL (13.0-17.5) 9.7g/dL (13.0-17.5) Hematocrit 33.6% (39.0-53.0) 28.9% (39.0-53.0) Mean Corpuscular Volume 98fL (79-100) 97fL (79-100) Mean Corpuscular Hemoglobin 33pg (25-35) 33pg (25-35) Mean Corpuscular Hemoglobin Concent 33g/dL (31-37) 34g/dL (31-37) Red Cell Distribution Width 13.3% (11.5-14.5) 13.5% (11.5-14.5) Platelet Count 397x10^3/uL (140-400) 395x10^3/uL (140-400) Neutrophils (%) (Auto) 91% (31-73) 81% (31-73) Lymphocytes (%) (Auto) 3% (24-48) 7% (24-48) Monocytes (%) (Auto) 5% (0-9) 11% (0-9) Eosinophils (%) (Auto) 0% (0-3) 1% (0-3) Basophils (%) (Auto) 0% (0-3) 1% (0-3) Neutrophils # (Auto) 14.8x10^3uL (1.8-7.7) 9.5x10^3uL (1.8-7.7) Lymphocytes # (Auto) 0.6x10^3/uL (1.0-4.8) 0.8x10^3/uL (1.0-4.8) Monocytes # (Auto) 0.9x10^3/uL (0.0-1.1) 1.3x10^3/uL (0.0-1.1) Eosinophils # (Auto) 0.1x10^3/uL (0.0-0.7) 0.1x10^3/uL (0.0-0.7) Basophils # (Auto) 0.0x10^3/uL (0.0-0.2) 0.1x10^3/uL (0.0-0.2) Erythrocyte Sedimentation Rate 90 (0-15) Sodium Level 138mmol/L (136-145) 139mmol/L (136-145) Potassium Level 3.7mmol/L (3.5-5.1) 3.0mmol/L (3.5-5.1) Chloride Level 104mmol/L (98-107) 104mmol/L (98-107) Carbon Dioxide Level 21mmol/L (21-32) 23mmol/L (21-32) Anion Gap 13 (6-14) 12 (6-14) Blood Urea Nitrogen 16mg/dL (8-26) 10mg/dL (8-26) Creatinine 1.0mg/dL (0.7-1.3) 0.8mg/dL (0.7-1.3) Estimated GFR (Cockcroft-Gault) 73.9 95.6 Glucose Level 110mg/dL (70-99) 115mg/dL (70-99) Calcium Level 8.0mg/dL (8.5-10.1) 7.8mg/dL (8.5-10.1) Total Bilirubin 1.1mg/dL (0.2-1.0) 0.7mg/dL (0.2-1.0) Direct Bilirubin 0.5mg/dL (0.0-0.2) Aspartate Amino Transf (AST/SGOT) 30U/L (15-37) 29U/L (15-37) Alanine Aminotransferase (ALT/SGPT) 49U/L (16-63) 40U/L (16-63) Alkaline Phosphatase 124U/L (46-116) 103U/L (46-116) Creatine Kinase 117U/L (39-308) Troponin I Quantitative < 0.017ng/mL (0.000-0.055) Total Protein 6.6g/dL (6.4-8.2) 5.7g/dL (6.4-8.2) Albumin 2.2g/dL (3.4-5.0) 1.9g/dL (3.4-5.0) Procalcitonin 5.69ng/mL (0.00-0.10) BUN/Creatinine Ratio 13 (6-20) Albumin/Globulin Ratio 0.5 (1.0-1.7) Prothrombin Time 14.7SEC (11.7-14.0) Prothromb Time International Ratio 1.2 (0.8-1.1) Laboratory Tests Test 12/14/16 04:28 12/14/16 08:40 White Blood Count 11.8x10^3/uL (4.0-11.0) Red Blood Count 2.98x10^6/uL (4.30-5.70) Hemoglobin 9.7g/dL (13.0-17.5) Hematocrit 28.9% (39.0-53.0) Mean Corpuscular Volume 97fL (79-100) Mean Corpuscular Hemoglobin 33pg (25-35) Mean Corpuscular Hemoglobin Concent 34g/dL (31-37) Red Cell Distribution Width 13.5% (11.5-14.5) Platelet Count 395x10^3/uL (140-400) Neutrophils (%) (Auto) 81% (31-73) Lymphocytes (%) (Auto) 7% (24-48) Monocytes (%) (Auto) 11% (0-9) Eosinophils (%) (Auto) 1% (0-3) Basophils (%) (Auto) 1% (0-3) Neutrophils # (Auto) 9.5x10^3uL (1.8-7.7) Lymphocytes # (Auto) 0.8x10^3/uL (1.0-4.8) Monocytes # (Auto) 1.3x10^3/uL (0.0-1.1) Eosinophils # (Auto) 0.1x10^3/uL (0.0-0.7) Basophils # (Auto) 0.1x10^3/uL (0.0-0.2) Sodium Level 139mmol/L (136-145) Potassium Level 3.0mmol/L (3.5-5.1) Chloride Level 104mmol/L (98-107) Carbon Dioxide Level 23mmol/L (21-32) Anion Gap 12 (6-14) Blood Urea Nitrogen 10mg/dL (8-26) Creatinine 0.8mg/dL (0.7-1.3) Estimated GFR (Cockcroft-Gault) 95.6 BUN/Creatinine Ratio 13 (6-20) Glucose Level 115mg/dL (70-99) Calcium Level 7.8mg/dL (8.5-10.1) Total Bilirubin 0.7mg/dL (0.2-1.0) Aspartate Amino Transf (AST/SGOT) 29U/L (15-37) Alanine Aminotransferase (ALT/SGPT) 40U/L (16-63) Alkaline Phosphatase 103U/L (46-116) Total Protein 5.7g/dL (6.4-8.2) Albumin 1.9g/dL (3.4-5.0) Albumin/Globulin Ratio 0.5 (1.0-1.7) Prothrombin Time 14.7SEC (11.7-14.0) Prothromb Time International Ratio 1.2 (0.8-1.1) Microbiology 12/12/16 Blood Culture - Final, Complete Medications Current Medications Sodium Chloride (Iv Sodium Chloride 0.9% 1000ml Bag) 1,000 ml @ 1,000 mls/hr Q1H IV Last administered on 12/12/16t 15:55; Start 12/12/16 at 15:45; Stop at 16:44; Status DC Ondansetron HCl (Zofran) 4 mg 1X ONCE IV Last administered on 12/12/16 15:58 ; Start 12/12/16 at 15:45; Stop 12/12/16 at 15:48; Status DC Ketorolac Tromethamine (Toradol) 30 mg 1X ONCE IV Last administered on 15:58; Start 12/12/16 at 15:45; Stop 12/12/16 at 15:48; Status DC Acetaminophen (Tylenol) 650 mg 1X ONCE PO Last administered on 12/12/16 16:02 ; Start 12/12/16 at 16:00; Stop 12/12/16 at 16:01; Status DC Ondansetron HCl 4 mg 4 mg PRN Q8HRS PRN IV NAUSEA/VOMITING; Start 12/12/16 at 17:30; Stop 12/13/16 at 17:29; Status DC Sodium Chloride (Iv Sodium Chloride 0.9% 1000ml Bag) 1,000 ml @ 125 mls/hr Q8H IV Last administered on 12/12/16 23:00; Start 12/12/16 at 17:45; Stop at 17:44; Status DC Acetaminophen (Tylenol) 650 mg PRN Q4HRS PRN PO FEVER; Start 12/12/16 at 17:30 ; Stop 12/13/16 at 17:29; Status DC Vancomycin HCl (Vanco Per Pharmacy) 1 each PRN DAILY PRN MC SEE COMMENTS Last administered on 12/12/16 19:56; Start 12/12/16 at 18:45; Stop 12/13/16 at 08:21 ; Status DC Piperacillin Sod/ Tazobactam Sod 1 each 1 each PRN DAILY PRN MC SEE COMMENTS; Start 12/12/16 at 18:45; Stop 12/13/16 at 08:23; Status DC Diltiazem HCl/ Dextrose (Cardizem) 125 ml @ 0 mls/hr CONT PRN IV SEE I/O RECORD Last administered on 12/13/16 05:54; Start 12/12/16 at 18:45; Stop 12/13 at 16:44; Status DC Diltiazem HCl 10 mg 10 mg 1X ONCE IVP Last administered on 12/12/16 18:38; Start 12/12/16 at 18:45; Stop 12/12/16 at 18:46; Status DC Vancomycin HCl 2 gm/Sodium Chloride 500 ml @ 250 mls/hr 1X ONCE IV Last administered on 12/12/16 19:26; Start 12/12/16 at 19:00; Stop 12/12/16 at 20:59 ; Status DC Piperacillin Sod/ Tazobactam Sod 3.375 gm/Sodium Chloride 50 ml @ 100 mls/hr 1X ONCE IV Last administered on 12/12/16 18:52; Start 12/12/16 at 19:00; Stop 12/12/16 at 19:29; Status DC Piperacillin Sod/ Tazobactam Sod/ Sodium Chloride (Zosyn/Iv Sodium Chloride 0.9 % 50ml) 50 ml @ 100 mls/hr Q6HRS IV Last administered on 12/13/16 05:48; Start 12/13/16 at 00:00; Stop 12/13/16 at 08:23; Status DC Diltiazem HCl 20 mg 20 mg 1X ONCE IVP Last administered on 12/12/16 19:15; Start 12/12/16 at 19:15; Stop 12/12/16 at 19:17; Status DC Sodium Chloride 3,060 ml @ 765 mls/hr Q4H IV Last administered on 12/12/16 21 :03; Start 12/12/16 at 19:30; Stop 12/12/16 at 23:29; Status DC Vancomycin HCl/ Sodium Chloride (Iv Sodium Chloride 0.9% 500ml Bag) 500 ml @ 250 mls/hr Q12H IV Last administered on 12/13/16 05:52; Start 12/13/16 at 07: 00; Stop 12/13/16 at 08:21; Status DC Vancomycin HCl 1 each 1X ONCE MC ; Start 12/14/16 at 06:30; Stop 12/14/16 at 06 :30; Status DC Digoxin (Lanoxin) 500 mcg 1X ONCE IV Last administered on 12/12/16 21:01; Start 12/12/16 at 21:00; Stop 12/12/16 at 21:01; Status DC Potassium Chloride (Klor-Con) 40 meq 1X ONCE PO Last administered on 21:41; Start 12/12/16 at 22:00; Stop 12/12/16 at 22:01; Status DC Pantoprazole Sodium (Protonix) 40 mg DAILYAC PO ; Start 12/13/16 at 07:30; Stop 12/13/16 at 07:30; Status DC Pantoprazole Sodium (Protonix) 40 mg HS PO Last administered on 12/13/16 20:10 ; Start 12/12/16 at 23:30 Aspirin (Ecotrin) 81 mg DAILY PO Last administered on 12/13/16 10:03; Start at 09:00 Cetirizine HCl (Zyrtec) 10 mg DAILY PO Last administered on 12/13/16 10:02; Start 12/13/16 at 09:00 Cyanocobalamin (Vitamin B-12) 1,000 mcg DAILY PO Last administered on 10:03; Start 12/13/16 at 09:00 Atorvastatin Calcium (Lipitor) 10 mg QHS PO Last administered on 12/13/16 20: 10; Start 12/13/16 at 21:00 Non-Formulary Medication 1 puff BID IH ; Start 12/13/16 at 09:00; Stop 12/13/16 at 09:00; Status DC Losartan Potassium (Cozaar) 50 mg DAILY PO Last administered on 12/13/16 10:03 ; Start 12/13/16 at 09:00 Hydrochlorothiazide (Microzide) 12.5 mg DAILY PO Last administered on 10:02; Start 12/13/16 at 09:00; Stop 12/14/16 at 08:45; Status DC Albuterol/ Ipratropium (Duoneb) 3 ml RTQID NEB Last administered on 12/14/16 08:47; Start 12/13/16 at 08:30 Budesonide 0.5 mg 0.5 mg RTBID NEB Last administered on 12/14/16 08:47; Start 12/13/16 at 08:30 Meropenem/Sodium Chloride (Merrem/Iv Sodium Chloride 0.9% 100ml) 100 ml @ 200 mls/hr Q8HRS IV Last administered on 12/14/16 06:00; Start 12/13/16 at 08:30 Iohexol (Omnipaque 240 Mg/ml) 30 ml 1X ONCE PO Last administered on 12/13/16 09:15; Start 12/13/16 at 09:15; Stop 12/13/16 at 09:16; Status DC Iohexol (Omnipaque 300 Mg/ml) 75 ml 1X ONCE IV Last administered on 12/13/16 10:34; Start 12/13/16 at 09:15; Stop 12/13/16 at 09:16; Status DC Info 1 each 1 each PRN DAILY PRN MC SEE COMMENTS; Start 12/13/16 at 09:15; Stop 12/15/16 at 09:14 Sodium Chloride 500 ml @ 500 mls/hr 1X ONCE IV Last administered on 12:00; Start 12/13/16 at 12:00; Stop 12/13/16 at 12:59; Status DC Sodium Chloride (Iv Sodium Chloride 0.9% 1000ml Bag) 1,000 ml @ 150 mls/hr 1X ONCE IV Last administered on 12/13/16 12:00; Start 12/13/16 at 12:00; Stop at 18:39; Status DC Zolpidem Tartrate (Ambien) 5 mg PRN QHS PRN PO INSOMNIA, MAY REPEAT IN 1HR Last administered on 12/13/16 22:14; Start 12/13/16 at 16:45; Stop 12/14/16 at 08:45; Status DC Bisacodyl (Dulcolax Tab) 10 mg PRN DAILY PRN PO CONSTIPATION; Start 12/13/16 at 16:45 Lubiprostone (Amitiza) 8 mcg BIDWMEALS PO Last administered on 12/13/16 17:32 ; Start 12/13/16 at 17:00 Diltiazem HCl (Cardizem 24hr Cd) 180 mg 1X ONCE PO Last administered on 17:32; Start 12/13/16 at 16:45; Stop 12/13/16 at 16:48; Status DC Diltiazem HCl (Cardizem 24hr Cd) 180 mg DAILY PO Last administered on 08:10; Start 12/14/16 at 09:00 Guaifenesin (Robitussin Dm) 10 ml PRN Q4HRS PRN PO COUGH Last administered on 20:10; Start 12/13/16 at 19:45 Guaifenesin/ Codeine Phosphate (Robitussin Ac) 5 ml PRN Q4HRS PRN PO COUGH; Start 12/13/16 at 19:45 Guaifenesin/ Codeine Phosphate (Robitussin Ac) 10 ml PRN Q4HRS PRN PO COUGH; Start 12/13/16 at 19:45 Potassium Chloride (Klor-Con) 20 meq 1X ONCE PO Last administered on 09:29; Start 12/14/16 at 08:45; Stop 12/14/16 at 08:47; Status DC Active Scripts Active Reported Vitamin B-12 (Cyanocobalamin (Vitamin B-12)) 1,000 Mcg Tablet 1 Tab PO DAILY All Day Allergy (Cetirizine Hcl) 10 Mg Tablet 10 Mg PO Advair 250-50 Diskus (Fluticasone/Salmeterol) 1 Each Disk.w.dev 1 Puff IH BID Omeprazole 20 Mg Capsule. 20 Mg PO BID Simvastatin 20 Mg Tablet 1 Tab PO QHS Valsartan-Hctz 80-12.5 Mg Tab (Valsartan/Hydrochlorothiazide) 1 Each Tablet 1 Each PO DAILY Aspir 81 (Aspirin) 81 Mg Tablet. 1 Tab PO DAILY Vitals/I & O Vital Sign - Last 24 Hours 12/13/16 12/13/16 12/13/16 12/13/16 10:03 11:00 11:19 12:00 Temp 98.7 98.7 Pulse 104 98 109 Resp 18 18 B/P 135/67 137/79 134/74 Pulse Ox 99 97 96 O2 Delivery Room Air Room Air Room Air 12/13/16 12/13/16 12/13/16 12/13/16 12:00 13:00 14:00 15:00 Pulse 94 80 88 Resp 19 20 20 B/P 138/79 147/69 140/72 Pulse Ox 92 93 95 O2 Delivery Room Air Room Air Room Air Room Air 12/13/16 12/13/16 12/13/16 12/13/16 16:00 16:00 16:08 17:00 Temp 99.7 99.7 Pulse 88 96 Resp 18 8 B/P 138/69 154/64 Pulse Ox 95 96 96 O2 Delivery Room Air Room Air Room Air Room Air 12/13/16 12/13/16 12/13/16 12/13/16 17:32 18:00 19:00 19:47 Pulse 96 97 84 Resp 19 16 B/P 159/63 142/69 125/62 Pulse Ox 95 94 96 O2 Delivery Room Air Room Air Room Air 12/13/16 12/13/16 12/13/16 12/13/16 20:00 20:00 21:00 22:00 Temp 99.2 99.2 Pulse 84 78 77 Resp 16 20 B/P 142/57 164/72 154/75 Pulse Ox 95 96 95 O2 Delivery Room Air Room Air Room Air Room Air 12/13/16 12/14/16 12/14/16 12/14/16 23:00 00:00 00:00 01:00 Temp 98.8 98.8 Pulse 80 84 74 Resp 16 B/P 133/61 143/78 126/72 Pulse Ox 94 92 94 O2 Delivery Room Air Room Air Room Air Room Air 12/14/16 12/14/16 12/14/16 12/14/16 02:00 03:00 04:00 04:00 Pulse 79 77 72 Resp 25 B/P 145/76 127/66 139/68 Pulse Ox 94 92 94 O2 Delivery Room Air Room Air Room Air Room Air 12/14/16 12/14/16 12/14/16 12/14/16 05:00 06:00 07:00 08:00 Temp 98.2 98.6 98.2 98.6 Pulse 82 77 75 72 Resp 23 B/P 127/72 152/90 127/85 118/65 Pulse Ox 96 95 94 95 O2 Delivery Room Air Room Air Room Air Room Air 12/14/16 12/14/16 12/14/16 12/14/16 08:00 08:10 08:48 09:00 Pulse 79 88 Resp 28 B/P 118/65 146/77 Pulse Ox 96 96 O2 Delivery Room Air Room Air Room Air Intake and Output 12/13/16 12/13/16 12/14/16 15:00 23:00 07:00 Intake Total 100 ml 225 ml 682 ml Output Total 200 ml Balance -100 ml 225 ml 682 ml ODIN ELLSWORTH MD Dec 14, 2016 10:04
[2016-12-14] MEDS ORDERED: NALOXONE 0.4 MG/ML VIAL. ONE (10:08)
[2016-12-14] MEDS ORDERED: FLUMAZENIL 0.5 MG/5 ML VIAL. IV ONE (10:08)
[2016-12-14] MEDS ORDERED: FENTANYL PF 100 MCG/2 ML VIAL. IV ONE (10:15)
[2016-12-14] MEDS ORDERED: LIDOCAINE 1% / SOD BICARB 8.4% 20 ML VIAL. IJ ONE (10:15)
[2016-12-14] MEDS ORDERED: MIDAZOLAM HCL 2 MG/2 ML VIAL. IV ONE (10:15)
--- NOTE | 2016-12-14 11:05 | PDOC ---
MODERATE SEDATION ASSESSMENT RISKS/ALTERNATIVES Risks/Alternatives Risks and alternatives of this type of sedation and procedure discussed with: RISK/ALTERNATIVES: Patient H & P ON CHART H & P H & P on chart and reviewed for co-morbid conditions and appropriate labs. H&P ON CHART: Yes STATUS PREG STATUS ASSESSED: N/A MEDS/ALLERGIES REVIEWED Meds/Allergies Reviewed Medications and Allergies including time and route of recently administered narcotics and sedatives. MEDS/ALLERGIES REVIEWED: Yes ASA RATING ASA RATING: II AIRWAY ASSESSMENT Airway Assessment Airway patency, oral function limitations, presence of caps, crowns, dentures, partials, and ability to extend neck assessed. AIRWAY ASSESSMENT: Yes MALLAMPATI SCORE MALLAMPATI SCORE: II PRE-SEDATION ASSESSMENT PRE-SEDATION ASSESSMENT: Yes GLORIA PURVIS MD Dec 14, 2016 11:04
--- NOTE | 2016-12-14 11:07 | PDOC ---
Exam Active Directory Administrator Active Directory Administrator Ann-Marie Pharmacy Technologist Pharmacy Technologist Yoanna Perry Pre-Procedure Diagnosis Pre-Procedure Diagnosis 71 YO male with + blood culture, and with Large, multiloculated central liver complex mass----abscess vs necrotic neoplasm Post-Procedure Diagnosis Post-Procedure Diagnosis Liver abscess. Considered most likely bland abscess: however, the possibility of infected neoplasm cannot be entirely excluded. Procedure Performed Procedure Performed CT guided placement of liver abscess drainage catheter Type of Anesthesia Type of Anesthesia Local + Mod sedation Estimated Blood Loss EBL: Minimal Specimens Specimans 80 cc grossly purulent complex fluid removed---sample to micro for aerobic/ anaerobic C&S Drain/Tubes Drains/Tubes 12F locking pigtail liver abscess drain ---to bulb suction Condition of Patient Condition of Patient Stable. No apparent complication. Disposition Disposition From IR/CT return to ICU. F/u with Dr White and ID. Full report to follow. GLORIA PURVIS MD Dec 14, 2016 11:07
[2016-12-14] MEDS: ASPIRIN ENTERIC COATED 81 MG TABLET.DR. PO SCH (11:56)
[2016-12-14] MEDS: CYANOCOBALAMIN (VITAMIN B-12) 1,000 MCG TABLET. PO SCH (11:57)
[2016-12-14] MEDS: LUBIPROSTONE 8 MCG CAPSULE PO SCH ×2 (11:57→17:45)
[2016-12-14] MEDS: LOSARTAN POTASSIUM 50 MG TABLET. PO SCH (11:57)
[2016-12-14] MEDS: CETIRIZINE HCL 10 MG TABLET PO SCH (11:57)
[2016-12-14] MEDS: GUAIFENESIN DM 200MG/20MG 10 ML SYRUP. PO PRN (11:58)
[2016-12-14] MEDS: HYDROCODONE/APAP 7.5/325MG TABLET. PO PRN ×2 (15:13→20:23)
[2016-12-14] MEDS: ACETAMINOPHEN 325 MG TABLET. PO PRN (16:02)
[2016-12-14] MEDS: ATORVASTATIN CALCIUM 10 MG TABLET. PO SCH (20:22)
[2016-12-14] MEDS: PANTOPRAZOLE 40 MG TABLET. PO SCH (20:23)
[2016-12-15] VITALS (7 sets, daily range): BP systolic 123–167; BP diastolic 67–93
[2016-12-15] MEDS: HYDROCODONE/APAP 7.5/325MG TABLET. PO PRN ×3 (04:22→17:58)
[2016-12-15] MEDS: MEROPENEM 1 GM in IV NORMAL SALINE 100ML 100 ML IV SCH ×3 (06:06→22:33)
--- NOTE | 2016-12-15 07:48 | RAD ---
CT-guided liver abscess drain insertion Indication: 8-year-old male with fever, and with large, multiloculated, central hepatic complex mass--- abscess versus neoplasm. Image guided biopsy and/or drainage catheter insertion has been requested. Anesthesia: 31 minutes moderate sedation was provided utilizing a total of 1.5 mg Versed and 75 mcg fentanyl, IV. The patient was appropriately monitored by a qualified independent observer throughout the time of moderate sedation. Consent: The procedure was explained in its entirety to the patient and/or the patient's designated circulation representative by a member of the treatment team. This included a discussion of risks and benefits and acceptable alternatives to the procedure, as well as expected consequences of no treatment at all. Discussion of risks included, but was not limited to, those that are most frequent and those that are rare, but possibly severe or life-threatening, as well as the possibility of unforeseen complications. Procedure: Informed consent was obtained from the patient. He was placed supine on the CT scanner. Preliminary noncontrast CT images confirmed the previously described multiloculated complex mass occupying central aspect of right lobe of liver. A right lateral skin site suitable for CT-guided biopsy or drain placement was selected and marked. That area was prepped and draped in the usual sterile fashion. Moderate sedation was provided with IV Versed and fentanyl. Using aseptic technique, local anesthesia, and CT guidance, a 17-gauge needle was successfully introduced into the largest, most posterior loculation. A sample of grossly purulent material was aspirated through the needle, and was submitted to microbiology for aerobic and anaerobic culture and sensitivity. Drainage catheter insertion was considered indicated. The needle was removed over a 0.035 inch guidewire. The percutaneous tract was dilated and a 12 [place] locking pigtail drainage catheter was easily introduced. Completion CT images documented satisfactory position of the drainage catheter. 80 cc of grossly purulent complex complex fluid was then removed. The drainage catheter was then connected to bulb suction, and was secured at the skin exit site utilizing suture and sterile dressing. Patient tolerated the procedure well without apparent complication. Impression: Successful, uneventful CT-guided insertion of a 12 [place] locking pigtail liver abscess drainage catheter, as described. PQRS Compliance Statement: One or more of the following individualized dose reduction techniques was utilized for this procedure: 1. Automated exposure control. 2. Adjustment of MA and/or KV according to patient size. 3. Iterative reconstruction technique.
--- NOTE | 2016-12-15 08:06 | PDOC ---
Infectious Disease Note Subjective Subjective Some better yet. ROS ROS GEN: Denies fevers, chills, sweats HEENT: Denies blurred vision, sore throat CV: Denies chest pain RESP: Denies shortness of air, cough GI: Denies n/v/d/pain. Has some Flatus NEURO: Denies confusion, dizziness MSK: Denies weakness, joint pain/swelling Vital Sign Vital Signs Vital Signs Date Time Temp Pulse Resp B/P Pulse Ox O2 Delivery O2 Flow Rate FiO2 12/15/16 05:39 16 94 Room Air 12/15/16 04:00 98.2 74 153/86 98.2 12/14/16 10:53 4.0 Physical Exam PHYSICAL EXAM GENERAL: NAD, Alert, in chair HEENT: PERRL, OC/OP- clear NECK: Supple, no JVD, no LN LUNGS: Clear HEART: S1S2, no gallop, no murmur ABD: Soft, NT, no organomegaly, no rebound, obese. Drain with serosangious EXT: No edema, no cyanosis. JAYESH TURN OUT: Alert, oriented x 3, no focal neurologic deficit SKIN: No rash IV: ok Labs Lab Laboratory Tests Test 12/14/16 08:40 Prothrombin Time 14.7SEC (11.7-14.0) Prothromb Time International Ratio 1.2 (0.8-1.1) Objective Assessment GNR - sepsis -POA 12/12 Liver lesion ? abscess s/p drain 12/14 Fever - should improve. Clinically he looks better Leukocytosis - better Afib -new Abd discomfort -better Plan Plan of Care Cont Meropenem Labs this am F/u cults/labs SARIAH YEE MD Dec 15, 2016 08:06
[2016-12-15] MEDS: BUDESONIDE 0.5 MG/2 ML NEBU NEB SCH ×2 (08:18→19:43)
[2016-12-15] MEDS: IPRATRPIUM/ALBUTEROL 0.5/2.5MG 3 ML NEBU. NEB SCH ×4 (08:18→19:43)
[2016-12-15] MEDS: CETIRIZINE HCL 10 MG TABLET PO SCH (08:44)
[2016-12-15] MEDS: CYANOCOBALAMIN (VITAMIN B-12) 1,000 MCG TABLET. PO SCH (08:44)
[2016-12-15] MEDS: LUBIPROSTONE 8 MCG CAPSULE PO SCH ×2 (08:46→17:41)
[2016-12-15] MEDS: LOSARTAN POTASSIUM 50 MG TABLET. PO SCH (08:46)
[2016-12-15] MEDS: DILTIAZEM HCL 180 MG CAP.ER.24H PO SCH (08:47)
[2016-12-15] MEDS: ASPIRIN ENTERIC COATED 81 MG TABLET.DR. PO SCH (08:47)
[2016-12-15 08:52] LABS: HEMATOCRIT 34.7 % (39.0-53.0); HEMOGLOBIN 11.6 g/dL (13.0-17.5); RED BLOOD COUNT 3.55 x10^6/uL (4.30-5.70); RED CELL DISTRIBUTION WIDTH 13.3 % (11.5-14.5); WHITE BLOOD COUNT 13.7 x10^3/uL (4.0-11.0)
[2016-12-15 08:55] LABS: CALCIUM 8.4 mg/dL (8.5-10.1); GFR 73.9; POTASSIUM 3.3 mmol/L (3.5-5.1)
--- NOTE | 2016-12-15 09:47 | PDOC ---
PROGRESS NOTES Subjective Subjective Pt was sitting comfortably in chair. Pt stated he is slowly recovering. Pt had a liver biopsy today and was complaining of abdominal tenderness and tightness. Pt denied chest pain, SOB, n, v, diaphoresis. No other complaints. Objective Objective Vital Signs Date Time Temp Pulse Resp B/P Pulse Ox O2 Delivery O2 Flow Rate FiO2 12/15/16 08:47 88 167/93 12/15/16 08:30 20 98 Room Air 12/15/16 04:00 98.2 98.2 12/14/16 10:53 4.0 Intake and Output 12/15/16 07:00 Intake Total 1275 ml Output Total 555 ml Balance 720 ml Intake Oral 900 ml IV Total 375 ml Output Urine Total 500 ml Drainage Total 55 ml # Voids 3 Physical Exam Physical Exam Heart - RRR, S1, S2, no murmur, rub Assessment Assessment Problems Medical Problems: (1) Atrial fibrillation with RVR Status: Acute (2) Dehydration Status: Acute (3) FUO (fever of unknown origin) Status: Acute (4) Generalized weakness Status: Acute (5) Hypokalemia Status: Acute (6) Leukocytosis Status: Acute (7) Sepsis due to undetermined organism Status: Acute Plan Plan of Care New onset A fib with RVR - now resolved Agree with current treatment Stable from cardiac perspective Comment Review of Relevant I have reviewed the following items norma (where applicable) has been applied. Labs Laboratory Tests Test 12/14/16 04:28 12/14/16 08:40 12/15/16 08:35 White Blood Count 11.8x10^3/uL (4.0-11.0) 13.7x10^3/uL (4.0-11.0) Red Blood Count 2.98x10^6/uL (4.30-5.70) 3.55x10^6/uL (4.30-5.70) Hemoglobin 9.7g/dL (13.0-17.5) 11.6g/dL (13.0-17.5) Hematocrit 28.9% (39.0-53.0) 34.7% (39.0-53.0) Mean Corpuscular Volume 97fL (79-100) 98fL (79-100) Mean Corpuscular Hemoglobin 33pg (25-35) 33pg (25-35) Mean Corpuscular Hemoglobin Concent 34g/dL (31-37) 34g/dL (31-37) Red Cell Distribution Width 13.5% (11.5-14.5) 13.3% (11.5-14.5) Platelet Count 395x10^3/uL (140-400) 448x10^3/uL (140-400) Neutrophils (%) (Auto) 81% (31-73) Lymphocytes (%) (Auto) 7% (24-48) Monocytes (%) (Auto) 11% (0-9) Eosinophils (%) (Auto) 1% (0-3) Basophils (%) (Auto) 1% (0-3) Neutrophils # (Auto) 9.5x10^3uL (1.8-7.7) Lymphocytes # (Auto) 0.8x10^3/uL (1.0-4.8) Monocytes # (Auto) 1.3x10^3/uL (0.0-1.1) Eosinophils # (Auto) 0.1x10^3/uL (0.0-0.7) Basophils # (Auto) 0.1x10^3/uL (0.0-0.2) Sodium Level 139mmol/L (136-145) 136mmol/L (136-145) Potassium Level 3.0mmol/L (3.5-5.1) 3.3mmol/L (3.5-5.1) Chloride Level 104mmol/L (98-107) 99mmol/L (98-107) Carbon Dioxide Level 23mmol/L (21-32) 29mmol/L (21-32) Anion Gap 12 (6-14) 8 (6-14) Blood Urea Nitrogen 10mg/dL (8-26) 12mg/dL (8-26) Creatinine 0.8mg/dL (0.7-1.3) 1.0mg/dL (0.7-1.3) Estimated GFR (Cockcroft-Gault) 95.6 73.9 BUN/Creatinine Ratio 13 (6-20) Glucose Level 115mg/dL (70-99) 111mg/dL (70-99) Calcium Level 7.8mg/dL (8.5-10.1) 8.4mg/dL (8.5-10.1) Total Bilirubin 0.7mg/dL (0.2-1.0) Aspartate Amino Transf (AST/SGOT) 29U/L (15-37) Alanine Aminotransferase (ALT/SGPT) 40U/L (16-63) Alkaline Phosphatase 103U/L (46-116) Total Protein 5.7g/dL (6.4-8.2) Albumin 1.9g/dL (3.4-5.0) Albumin/Globulin Ratio 0.5 (1.0-1.7) Prothrombin Time 14.7SEC (11.7-14.0) Prothromb Time International Ratio 1.2 (0.8-1.1) Laboratory Tests Test 12/15/16 08:35 White Blood Count 13.7x10^3/uL (4.0-11.0) Red Blood Count 3.55x10^6/uL (4.30-5.70) Hemoglobin 11.6g/dL (13.0-17.5) Hematocrit 34.7% (39.0-53.0) Mean Corpuscular Volume 98fL (79-100) Mean Corpuscular Hemoglobin 33pg (25-35) Mean Corpuscular Hemoglobin Concent 34g/dL (31-37) Red Cell Distribution Width 13.3% (11.5-14.5) Platelet Count 448x10^3/uL (140-400) Sodium Level 136mmol/L (136-145) Potassium Level 3.3mmol/L (3.5-5.1) Chloride Level 99mmol/L (98-107) Carbon Dioxide Level 29mmol/L (21-32) Anion Gap 8 (6-14) Blood Urea Nitrogen 12mg/dL (8-26) Creatinine 1.0mg/dL (0.7-1.3) Estimated GFR (Cockcroft-Gault) 73.9 Glucose Level 111mg/dL (70-99) Calcium Level 8.4mg/dL (8.5-10.1) Microbiology 12/12/16 Blood Culture - Preliminary, Resulted 12/12/16 Blood Culture Result 1 (MARK) - Preliminary, Resulted 12/12/16 Throat Culture - Preliminary, Resulted 12/12/16 - Preliminary, Resulted 12/14/16 Gram Stain - Final, Complete Medications Current Medications Sodium Chloride (Iv Sodium Chloride 0.9% 1000ml Bag) 1,000 ml @ 1,000 mls/hr Q1H IV Last administered on 12/12/16 15:55; Start 12/12/16 at 15:45; Stop at 16:44; Status DC Ondansetron HCl (Zofran) 4 mg 1X ONCE IV Last administered on 12/12/16 15:58 ; Start 12/12/16 at 15:45; Stop 12/12/16 at 15:48; Status DC Ketorolac Tromethamine (Toradol) 30 mg 1X ONCE IV Last administered on 15:58; Start 12/12/16 at 15:45; Stop 12/12/16 at 15:48; Status DC Acetaminophen (Tylenol) 650 mg 1X ONCE PO Last administered on 12/12/16 16:02 ; Start 12/12/16 at 16:00; Stop 12/12/16 at 16:01; Status DC Ondansetron HCl 4 mg 4 mg PRN Q8HRS PRN IV NAUSEA/VOMITING; Start 12/12/16 at 17:30; Stop 12/13/16 at 17:29; Status DC Sodium Chloride (Iv Sodium Chloride 0.9% 1000ml Bag) 1,000 ml @ 125 mls/hr Q8H IV Last administered on 12/12/16 23:00; Start 12/12/16 at 17:45; Stop at 17:44; Status DC Acetaminophen (Tylenol) 650 mg PRN Q4HRS PRN PO FEVER; Start 12/12/16 at 17:30 ; Stop 12/13/16 at 17:29; Status DC Vancomycin HCl (Vanco Per Pharmacy) 1 each PRN DAILY PRN MC SEE COMMENTS Last administered on 12/12/16 19:56; Start 12/12/16 at 18:45; Stop 12/13/16 at 08:21 ; Status DC Piperacillin Sod/ Tazobactam Sod 1 each 1 each PRN DAILY PRN MC SEE COMMENTS; Start 12/12/16 at 18:45; Stop 12/13/16 at 08:23; Status DC Diltiazem HCl/ Dextrose (Cardizem) 125 ml @ 0 mls/hr CONT PRN IV SEE I/O RECORD Last administered on 12/13/16 05:54; Start 12/12/16 at 18:45; Stop 12/13 at 16:44; Status DC Diltiazem HCl 10 mg 10 mg 1X ONCE IVP Last administered on 12/12/16 18:38; Start 12/12/16 at 18:45; Stop 12/12/16 at 18:46; Status DC Vancomycin HCl 2 gm/Sodium Chloride 500 ml @ 250 mls/hr 1X ONCE IV Last administered on 12/12/16 19:26; Start 12/12/16 at 19:00; Stop 12/12/16 at 20:59 ; Status DC Piperacillin Sod/ Tazobactam Sod 3.375 gm/Sodium Chloride 50 ml @ 100 mls/hr 1X ONCE IV Last administered on 12/12/16 18:52; Start 12/12/16 at 19:00; Stop 12/12/16 at 19:29; Status DC Piperacillin Sod/ Tazobactam Sod/ Sodium Chloride (Zosyn/Iv Sodium Chloride 0.9 % 50ml) 50 ml @ 100 mls/hr Q6HRS IV Last administered on 12/13/16 05:48; Start 12/13/16 at 00:00; Stop 12/13/16 at 08:23; Status DC Diltiazem HCl 20 mg 20 mg 1X ONCE IVP Last administered on 12/12/16 19:15; Start 12/12/16 at 19:15; Stop 12/12/16 at 19:17; Status DC Sodium Chloride 3,060 ml @ 765 mls/hr Q4H IV Last administered on 12/12/16 21 :03; Start 12/12/16 at 19:30; Stop 12/12/16 at 23:29; Status DC Vancomycin HCl/ Sodium Chloride (Iv Sodium Chloride 0.9% 500ml Bag) 500 ml @ 250 mls/hr Q12H IV Last administered on 12/13/16 05:52; Start 12/13/16 at 07: 00; Stop 12/13/16 at 08:21; Status DC Vancomycin HCl 1 each 1X ONCE MC ; Start 12/14/16 at 06:30; Stop 12/14/16 at 06 :30; Status DC Digoxin (Lanoxin) 500 mcg 1X ONCE IV Last administered on 12/12/16 21:01; Start 12/12/16 at 21:00; Stop 12/12/16 at 21:01; Status DC Potassium Chloride (Klor-Con) 40 meq 1X ONCE PO Last administered on 21:41; Start 12/12/16 at 22:00; Stop 12/12/16 at 22:01; Status DC Pantoprazole Sodium (Protonix) 40 mg DAILYAC PO ; Start 12/13/16 at 07:30; Stop 12/13/16 at 07:30; Status DC Pantoprazole Sodium (Protonix) 40 mg HS PO Last administered on 12/14/16 20:23 ; Start 12/12/16 at 23:30 Aspirin (Ecotrin) 81 mg DAILY PO Last administered on 12/15/16 08:47; Start at 09:00 Cetirizine HCl (Zyrtec) 10 mg DAILY PO Last administered on 12/15/16 08:44; Start 12/13/16 at 09:00 Cyanocobalamin (Vitamin B-12) 1,000 mcg DAILY PO Last administered on 08:44; Start 12/13/16 at 09:00 Atorvastatin Calcium (Lipitor) 10 mg QHS PO Last administered on 12/14/16 20: 22; Start 12/13/16 at 21:00 Non-Formulary Medication 1 puff BID IH ; Start 12/13/16 at 09:00; Stop 12/13/16 at 09:00; Status DC Losartan Potassium (Cozaar) 50 mg DAILY PO Last administered on 12/15/16 08:46 ; Start 12/13/16 at 09:00 Hydrochlorothiazide (Microzide) 12.5 mg DAILY PO Last administered on 10:02; Start 12/13/16 at 09:00; Stop 12/14/16 at 08:45; Status DC Albuterol/ Ipratropium (Duoneb) 3 ml RTQID NEB Last administered on 12/15/16 08:18; Start 12/13/16 at 08:30 Budesonide 0.5 mg 0.5 mg RTBID NEB Last administered on 12/15/16 08:18; Start 12/13/16 at 08:30 Meropenem/Sodium Chloride (Merrem/Iv Sodium Chloride 0.9% 100ml) 100 ml @ 200 mls/hr Q8HRS IV Last administered on 12/15/16 06:06; Start 12/13/16 at 08:30 Iohexol (Omnipaque 240 Mg/ml) 30 ml 1X ONCE PO Last administered on 12/13/16 09:15; Start 12/13/16 at 09:15; Stop 12/13/16 at 09:16; Status DC Iohexol (Omnipaque 300 Mg/ml) 75 ml 1X ONCE IV Last administered on 12/13/16 10:34; Start 12/13/16 at 09:15; Stop 12/13/16 at 09:16; Status DC Info 1 each 1 each PRN DAILY PRN MC SEE COMMENTS; Start 12/13/16 at 09:15; Stop 12/15/16 at 09:14; Status DC Sodium Chloride 500 ml @ 500 mls/hr 1X ONCE IV Last administered on 12:00; Start 12/13/16 at 12:00; Stop 12/13/16 at 12:59; Status DC Sodium Chloride (Iv Sodium Chloride 0.9% 1000ml Bag) 1,000 ml @ 150 mls/hr 1X ONCE IV Last administered on 12/13/16 12:00; Start 12/13/16 at 12:00; Stop at 18:39; Status DC Zolpidem Tartrate (Ambien) 5 mg PRN QHS PRN PO INSOMNIA, MAY REPEAT IN 1HR Last administered on 12/13/16 22:14; Start 12/13/16 at 16:45; Stop 12/14/16 at 08:45; Status DC Bisacodyl (Dulcolax Tab) 10 mg PRN DAILY PRN PO CONSTIPATION; Start 12/13/16 at 16:45 Lubiprostone (Amitiza) 8 mcg BIDWMEALS PO Last administered on 12/15/16 08:46 ; Start 12/13/16 at 17:00 Diltiazem HCl (Cardizem 24hr Cd) 180 mg 1X ONCE PO Last administered on 17:32; Start 12/13/16 at 16:45; Stop 12/13/16 at 16:48; Status DC Diltiazem HCl (Cardizem 24hr Cd) 180 mg DAILY PO Last administered on 08:47; Start 12/14/16 at 09:00 Guaifenesin (Robitussin Dm) 10 ml PRN Q4HRS PRN PO COUGH Last administered on 11:58; Start 12/13/16 at 19:45; Stop 12/14/16 at 16:00; Status DC Guaifenesin/ Codeine Phosphate (Robitussin Ac) 5 ml PRN Q4HRS PRN PO COUGH; Start 12/13/16 at 19:45 Guaifenesin/ Codeine Phosphate (Robitussin Ac) 10 ml PRN Q4HRS PRN PO COUGH; Start 12/13/16 at 19:45 Potassium Chloride (Klor-Con) 20 meq 1X ONCE PO Last administered on 09:29; Start 12/14/16 at 08:45; Stop 12/14/16 at 08:47; Status DC Lidocaine/Sodium Bicarbonate (Buffered Lidocaine 1%) 20 ml 1X ONCE IJ Last administered on 12/14/16 10:51; Start 12/14/16 at 10:15; Stop 12/14/16 at 10:18 ; Status DC Midazolam HCl (Versed) 2 mg 1X ONCE IV Last administered on 12/14/16 10:51; Start 12/14/16 at 10:15; Stop 12/14/16 at 10:18; Status DC Fentanyl Citrate (Fentanyl 2ml Vial) 100 mcg 1X ONCE IV Last administered on 10:52; Start 12/14/16 at 10:15; Stop 12/14/16 at 10:18; Status DC Flumazenil (Romazicon) 0.5 mg STK-MED ONCE IV ; Start 12/14/16 at 10:08; Stop at 10:17; Status DC Naloxone HCl (Narcan) 0.4 mg STK-MED ONCE .ROUTE ; Start 12/14/16 at 10:08; Stop 12/14/16 at 10:17; Status DC Acetaminophen/ Hydrocodone Bitart (Lortab 7.5/325) 1 tab PRN Q4HRS PRN PO PAIN Last administered on 12/15/16 04:22; Start 12/14/16 at 15:00 Acetaminophen (Tylenol) 650 mg PRN Q6HRS PRN PO MILD PAIN / TEMP Last administered on 12/14/16 16:02; Start 12/14/16 at 15:45 Active Scripts Active Reported Vitamin B-12 (Cyanocobalamin (Vitamin B-12)) 1,000 Mcg Tablet 1 Tab PO DAILY All Day Allergy (Cetirizine Hcl) 10 Mg Tablet 10 Mg PO Advair 250-50 Diskus (Fluticasone/Salmeterol) 1 Each Disk.w.dev 1 Puff IH BID Omeprazole 20 Mg Capsule. 20 Mg PO BID Simvastatin 20 Mg Tablet 1 Tab PO QHS Valsartan-Hctz 80-12.5 Mg Tab (Valsartan/Hydrochlorothiazide) 1 Each Tablet 1 Each PO DAILY Aspir 81 (Aspirin) 81 Mg Tablet. 1 Tab PO DAILY Vitals/I & O Vital Sign - Last 24 Hours 12/14/16 12/14/16 12/14/16 12/14/16 10:16 10:20 10:25 10:30 Pulse 95 90 90 85 Resp 18 18 18 18 Pulse Ox 95 95 95 95 O2 Delivery Room Air Nasal Cannula Nasal Cannula Nasal Cannula O2 Flow Rate 2.0 2.0 2.0 12/14/16 12/14/16 12/14/16 12/14/16 10:35 10:40 10:52 10:53 Pulse 88 85 90 Resp 18 15 14 16 Pulse Ox 95 95 95 95 O2 Delivery Nasal Cannula Nasal Cannula Nasal Cannula Nasal Cannula O2 Flow Rate 2.0 2.0 2.0 4.0 12/14/16 12/14/16 12/14/16 12/14/16 11:16 11:57 12:00 12:00 Temp 99.1 99.1 Pulse 85 87 84 Resp 29 23 B/P 151/79 151/73 151/83 Pulse Ox 94 95 O2 Delivery Room Air Room Air Room Air 12/14/16 12/14/16 12/14/16 12/14/16 13:00 13:49 14:00 15:00 Temp 102.8 102.8 Pulse 98 89 92 Resp 22 28 30 B/P 156/67 119/75 141/71 Pulse Ox 96 96 95 96 O2 Delivery Room Air Room Air Room Air Room Air 12/14/16 12/14/16 12/14/16 12/14/16 15:13 16:00 16:00 17:00 Temp 99.8 99.8 Pulse 96 80 Resp 31 28 30 B/P 145/71 121/63 Pulse Ox 96 94 92 O2 Delivery Room Air Room Air Room Air Room Air 12/14/16 12/14/16 12/14/16 12/14/16 17:34 18:00 20:00 20:00 Pulse 89 Resp 21 B/P 130/66 Pulse Ox 94 93 94 O2 Delivery Room Air Room Air Room Air Room Air 12/14/16 12/14/16 12/15/16 12/15/16 20:00 20:23 00:00 04:00 Temp 100.0 99.2 98.2 100.0 99.2 98.2 Pulse 78 73 74 Resp 22 26 19 20 B/P 116/75 123/67 153/86 Pulse Ox 94 95 95 93 O2 Delivery Room Air Room Air Room Air Room Air 12/15/16 12/15/16 12/15/16 12/15/16 04:22 05:39 08:03 08:21 Resp 22 16 Pulse Ox 93 94 95 O2 Delivery Room Air Room Air Room Air Room Air 12/15/16 12/15/16 12/15/16 08:30 08:46 08:47 Pulse 82 86 88 Resp 20 B/P 167/93 167/93 167/93 Pulse Ox 98 O2 Delivery Room Air Intake and Output 12/14/16 12/14/16 12/15/16 15:00 23:00 07:00 Intake Total 1275 ml Output Total 25 ml 530 ml Balance -25 ml 745 ml ODIN ELLSWORTH MD Dec 15, 2016 09:47
--- NOTE | 2016-12-15 16:37 | PDOC ---
PROGRESS NOTES Subjective Subjective He is feeling better, some drainage in bulb, cultures growing Klebsiella pneumonia Objective Objective Vital Signs Date Time Temp Pulse Resp B/P Pulse Ox O2 Delivery O2 Flow Rate FiO2 12/15/16 16:18 98.3 93 20 160/69 95 Room Air 98.3 12/14/16 10:53 4.0 Intake and Output 12/15/16 07:00 Intake Total 1275 ml Output Total 555 ml Balance 720 ml Intake Oral 900 ml IV Total 375 ml Output Urine Total 500 ml Drainage Total 55 ml # Voids 3 Physical Exam Abdomen: Soft, Other (drain LUQ) Heart: Regular rate Extremities: No clubbing, No cyanosis General: Alert, Oriented X3, Cooperative HEENT: Atraumatic Lungs: Clear to auscultation MUSCULOSKELETAL: No swelling Neck: Supple Neuro: Normal speech, Strength at 5/5 X4 ext Psych/Mental Status: Mental status NL Skin: No breakdown Assessment Assessment Problems Medical Problems: (1) Atrial fibrillation with RVR - rate has been controlled Status: Acute (2) Sepsis due to gram negative marion, Klebsiella pneumonia, with liver abscess, s /p drainage of abscess Status: Acute Plan Plan of Care more hypertensive today but may be due to pain but he also slept more when getting pain meds, tolerating drain and other meds Comment Review of Relevant I have reviewed the following items norma (where applicable) has been applied. Labs Laboratory Tests Test 12/14/16 04:28 12/14/16 08:40 12/15/16 08:35 White Blood Count 11.8x10^3/uL (4.0-11.0) 13.7x10^3/uL (4.0-11.0) Red Blood Count 2.98x10^6/uL (4.30-5.70) 3.55x10^6/uL (4.30-5.70) Hemoglobin 9.7g/dL (13.0-17.5) 11.6g/dL (13.0-17.5) Hematocrit 28.9% (39.0-53.0) 34.7% (39.0-53.0) Mean Corpuscular Volume 97fL (79-100) 98fL (79-100) Mean Corpuscular Hemoglobin 33pg (25-35) 33pg (25-35) Mean Corpuscular Hemoglobin Concent 34g/dL (31-37) 34g/dL (31-37) Red Cell Distribution Width 13.5% (11.5-14.5) 13.3% (11.5-14.5) Platelet Count 395x10^3/uL (140-400) 448x10^3/uL (140-400) Neutrophils (%) (Auto) 81% (31-73) Lymphocytes (%) (Auto) 7% (24-48) Monocytes (%) (Auto) 11% (0-9) Eosinophils (%) (Auto) 1% (0-3) Basophils (%) (Auto) 1% (0-3) Neutrophils # (Auto) 9.5x10^3uL (1.8-7.7) Lymphocytes # (Auto) 0.8x10^3/uL (1.0-4.8) Monocytes # (Auto) 1.3x10^3/uL (0.0-1.1) Eosinophils # (Auto) 0.1x10^3/uL (0.0-0.7) Basophils # (Auto) 0.1x10^3/uL (0.0-0.2) Sodium Level 139mmol/L (136-145) 136mmol/L (136-145) Potassium Level 3.0mmol/L (3.5-5.1) 3.3mmol/L (3.5-5.1) Chloride Level 104mmol/L (98-107) 99mmol/L (98-107) Carbon Dioxide Level 23mmol/L (21-32) 29mmol/L (21-32) Anion Gap 12 (6-14) 8 (6-14) Blood Urea Nitrogen 10mg/dL (8-26) 12mg/dL (8-26) Creatinine 0.8mg/dL (0.7-1.3) 1.0mg/dL (0.7-1.3) Estimated GFR (Cockcroft-Gault) 95.6 73.9 BUN/Creatinine Ratio 13 (6-20) Glucose Level 115mg/dL (70-99) 111mg/dL (70-99) Calcium Level 7.8mg/dL (8.5-10.1) 8.4mg/dL (8.5-10.1) Total Bilirubin 0.7mg/dL (0.2-1.0) Aspartate Amino Transf (AST/SGOT) 29U/L (15-37) Alanine Aminotransferase (ALT/SGPT) 40U/L (16-63) Alkaline Phosphatase 103U/L (46-116) Total Protein 5.7g/dL (6.4-8.2) Albumin 1.9g/dL (3.4-5.0) Albumin/Globulin Ratio 0.5 (1.0-1.7) Prothrombin Time 14.7SEC (11.7-14.0) Prothromb Time International Ratio 1.2 (0.8-1.1) Laboratory Tests Test 12/15/16 08:35 White Blood Count 13.7x10^3/uL (4.0-11.0) Red Blood Count 3.55x10^6/uL (4.30-5.70) Hemoglobin 11.6g/dL (13.0-17.5) Hematocrit 34.7% (39.0-53.0) Mean Corpuscular Volume 98fL (79-100) Mean Corpuscular Hemoglobin 33pg (25-35) Mean Corpuscular Hemoglobin Concent 34g/dL (31-37) Red Cell Distribution Width 13.3% (11.5-14.5) Platelet Count 448x10^3/uL (140-400) Sodium Level 136mmol/L (136-145) Potassium Level 3.3mmol/L (3.5-5.1) Chloride Level 99mmol/L (98-107) Carbon Dioxide Level 29mmol/L (21-32) Anion Gap 8 (6-14) Blood Urea Nitrogen 12mg/dL (8-26) Creatinine 1.0mg/dL (0.7-1.3) Estimated GFR (Cockcroft-Gault) 73.9 Glucose Level 111mg/dL (70-99) Calcium Level 8.4mg/dL (8.5-10.1) Microbiology 12/14/16 Blood Culture - Preliminary, Resulted NO GROWTH AFTER 1 DAY 12/12/16 Throat Culture - Final, Complete 12/12/16 - Final, Complete 12/14/16 Anaerobic/Aerobic Culture, Resulted Pending 12/14/16 Anaerobic Culture Result 1 (MARK), Resulted Pending 12/14/16 Aerobic Culture - Preliminary, Resulted 12/14/16 Aerobic Culture Result 1 (MARK) - Preliminary, Resulted Medications Current Medications Sodium Chloride (Iv Sodium Chloride 0.9% 1000ml Bag) 1,000 ml @ 1,000 mls/hr Q1H IV Last administered on 12/12/16 15:55; Start 12/12/16 at 15:45; Stop at 16:44; Status DC Ondansetron HCl (Zofran) 4 mg 1X ONCE IV Last administered on 12/12/16 15:58 ; Start 12/12/16 at 15:45; Stop 12/12/16 at 15:48; Status DC Ketorolac Tromethamine (Toradol) 30 mg 1X ONCE IV Last administered on 15:58; Start 12/12/16 at 15:45; Stop 12/12/16 at 15:48; Status DC Acetaminophen (Tylenol) 650 mg 1X ONCE PO Last administered on 12/12/16 16:02 ; Start 12/12/16 at 16:00; Stop 12/12/16 at 16:01; Status DC Ondansetron HCl 4 mg 4 mg PRN Q8HRS PRN IV NAUSEA/VOMITING; Start 12/12/16 at 17:30; Stop 12/13/16 at 17:29; Status DC Sodium Chloride (Iv Sodium Chloride 0.9% 1000ml Bag) 1,000 ml @ 125 mls/hr Q8H IV Last administered on 12/12/16 23:00; Start 12/12/16 at 17:45; Stop at 17:44; Status DC Acetaminophen (Tylenol) 650 mg PRN Q4HRS PRN PO FEVER; Start 12/12/16 at 17:30 ; Stop 12/13/16 at 17:29; Status DC Vancomycin HCl (Vanco Per Pharmacy) 1 each PRN DAILY PRN MC SEE COMMENTS Last administered on 12/12/16 19:56; Start 12/12/16 at 18:45; Stop 12/13/16 at 08:21 ; Status DC Piperacillin Sod/ Tazobactam Sod 1 each 1 each PRN DAILY PRN MC SEE COMMENTS; Start 12/12/16 at 18:45; Stop 12/13/16 at 08:23; Status DC Diltiazem HCl/ Dextrose (Cardizem) 125 ml @ 0 mls/hr CONT PRN IV SEE I/O RECORD Last administered on 12/13/16 05:54; Start 12/12/16 at 18:45; Stop 12/13 at 16:44; Status DC Diltiazem HCl 10 mg 10 mg 1X ONCE IVP Last administered on 12/12/16 18:38; Start 12/12/16 at 18:45; Stop 12/12/16 at 18:46; Status DC Vancomycin HCl 2 gm/Sodium Chloride 500 ml @ 250 mls/hr 1X ONCE IV Last administered on 12/12/16 19:26; Start 12/12/16 at 19:00; Stop 12/12/16 at 20:59 ; Status DC Piperacillin Sod/ Tazobactam Sod 3.375 gm/Sodium Chloride 50 ml @ 100 mls/hr 1X ONCE IV Last administered on 12/12/16 18:52; Start 12/12/16 at 19:00; Stop 12/12/16 at 19:29; Status DC Piperacillin Sod/ Tazobactam Sod/ Sodium Chloride (Zosyn/Iv Sodium Chloride 0.9 % 50ml) 50 ml @ 100 mls/hr Q6HRS IV Last administered on 12/13/16 05:48; Start 12/13/16 at 00:00; Stop 12/13/16 at 08:23; Status DC Diltiazem HCl 20 mg 20 mg 1X ONCE IVP Last administered on 12/12/16 19:15; Start 12/12/16 at 19:15; Stop 12/12/16 at 19:17; Status DC Sodium Chloride 3,060 ml @ 765 mls/hr Q4H IV Last administered on 12/12/16 21 :03; Start 12/12/16 at 19:30; Stop 12/12/16 at 23:29; Status DC Vancomycin HCl/ Sodium Chloride (Iv Sodium Chloride 0.9% 500ml Bag) 500 ml @ 250 mls/hr Q12H IV Last administered on 12/13/16 05:52; Start 12/13/16 at 07: 00; Stop 12/13/16 at 08:21; Status DC Vancomycin HCl 1 each 1X ONCE MC ; Start 12/14/16 at 06:30; Stop 12/14/16 at 06 :30; Status DC Digoxin (Lanoxin) 500 mcg 1X ONCE IV Last administered on 12/12/16 21:01; Start 12/12/16 at 21:00; Stop 12/12/16 at 21:01; Status DC Potassium Chloride (Klor-Con) 40 meq 1X ONCE PO Last administered on 21:41; Start 12/12/16 at 22:00; Stop 12/12/16 at 22:01; Status DC Pantoprazole Sodium (Protonix) 40 mg DAILYAC PO ; Start 12/13/16 at 07:30; Stop 12/13/16 at 07:30; Status DC Pantoprazole Sodium (Protonix) 40 mg HS PO Last administered on 12/14/16 20:23 ; Start 12/12/16 at 23:30 Aspirin (Ecotrin) 81 mg DAILY PO Last administered on 12/15/16 08:47; Start at 09:00 Cetirizine HCl (Zyrtec) 10 mg DAILY PO Last administered on 12/15/16 08:44; Start 12/13/16 at 09:00 Cyanocobalamin (Vitamin B-12) 1,000 mcg DAILY PO Last administered on 08:44; Start 12/13/16 at 09:00 Atorvastatin Calcium (Lipitor) 10 mg QHS PO Last administered on 12/14/16 20: 22; Start 12/13/16 at 21:00 Non-Formulary Medication 1 puff BID IH ; Start 12/13/16 at 09:00; Stop 12/13/16 at 09:00; Status DC Losartan Potassium (Cozaar) 50 mg DAILY PO Last administered on 12/15/16 08:46 ; Start 12/13/16 at 09:00 Hydrochlorothiazide (Microzide) 12.5 mg DAILY PO Last administered on 10:02; Start 12/13/16 at 09:00; Stop 12/14/16 at 08:45; Status DC Albuterol/ Ipratropium (Duoneb) 3 ml RTQID NEB Last administered on 12/15/16 15:48; Start 12/13/16 at 08:30 Budesonide 0.5 mg 0.5 mg RTBID NEB Last administered on 12/15/16 08:18; Start 12/13/16 at 08:30 Meropenem/Sodium Chloride (Merrem/Iv Sodium Chloride 0.9% 100ml) 100 ml @ 200 mls/hr Q8HRS IV Last administered on 12/15/16 14:20; Start 12/13/16 at 08:30 Iohexol (Omnipaque 240 Mg/ml) 30 ml 1X ONCE PO Last administered on 12/13/16 09:15; Start 12/13/16 at 09:15; Stop 12/13/16 at 09:16; Status DC Iohexol (Omnipaque 300 Mg/ml) 75 ml 1X ONCE IV Last administered on 12/13/16 10:34; Start 12/13/16 at 09:15; Stop 12/13/16 at 09:16; Status DC Info 1 each 1 each PRN DAILY PRN MC SEE COMMENTS; Start 12/13/16 at 09:15; Stop 12/15/16 at 09:14; Status DC Sodium Chloride 500 ml @ 500 mls/hr 1X ONCE IV Last administered on 12:00; Start 12/13/16 at 12:00; Stop 12/13/16 at 12:59; Status DC Sodium Chloride (Iv Sodium Chloride 0.9% 1000ml Bag) 1,000 ml @ 150 mls/hr 1X ONCE IV Last administered on 12/13/16 12:00; Start 12/13/16 at 12:00; Stop at 18:39; Status DC Zolpidem Tartrate (Ambien) 5 mg PRN QHS PRN PO INSOMNIA, MAY REPEAT IN 1HR Last administered on 12/13/16 22:14; Start 12/13/16 at 16:45; Stop 12/14/16 at 08:45; Status DC Bisacodyl (Dulcolax Tab) 10 mg PRN DAILY PRN PO CONSTIPATION; Start 12/13/16 at 16:45 Lubiprostone (Amitiza) 8 mcg BIDWMEALS PO Last administered on 12/15/16 08:46 ; Start 12/13/16 at 17:00 Diltiazem HCl (Cardizem 24hr Cd) 180 mg 1X ONCE PO Last administered on 17:32; Start 12/13/16 at 16:45; Stop 12/13/16 at 16:48; Status DC Diltiazem HCl (Cardizem 24hr Cd) 180 mg DAILY PO Last administered on 08:47; Start 12/14/16 at 09:00 Guaifenesin (Robitussin Dm) 10 ml PRN Q4HRS PRN PO COUGH Last administered on 11:58; Start 12/13/16 at 19:45; Stop 12/14/16 at 16:00; Status DC Guaifenesin/ Codeine Phosphate (Robitussin Ac) 5 ml PRN Q4HRS PRN PO COUGH; Start 12/13/16 at 19:45 Guaifenesin/ Codeine Phosphate (Robitussin Ac) 10 ml PRN Q4HRS PRN PO COUGH; Start 12/13/16 at 19:45 Potassium Chloride (Klor-Con) 20 meq 1X ONCE PO Last administered on 09:29; Start 12/14/16 at 08:45; Stop 12/14/16 at 08:47; Status DC Lidocaine/Sodium Bicarbonate (Buffered Lidocaine 1%) 20 ml 1X ONCE IJ Last administered on 12/14/16 10:51; Start 12/14/16 at 10:15; Stop 12/14/16 at 10:18 ; Status DC Midazolam HCl (Versed) 2 mg 1X ONCE IV Last administered on 12/14/16 10:51; Start 12/14/16 at 10:15; Stop 12/14/16 at 10:18; Status DC Fentanyl Citrate (Fentanyl 2ml Vial) 100 mcg 1X ONCE IV Last administered on 10:52; Start 12/14/16 at 10:15; Stop 12/14/16 at 10:18; Status DC Flumazenil (Romazicon) 0.5 mg STK-MED ONCE IV ; Start 12/14/16 at 10:08; Stop at 10:17; Status DC Naloxone HCl (Narcan) 0.4 mg STK-MED ONCE .ROUTE ; Start 12/14/16 at 10:08; Stop 12/14/16 at 10:17; Status DC Acetaminophen/ Hydrocodone Bitart (Lortab 7.5/325) 1 tab PRN Q4HRS PRN PO MODERATE - SEVERE PAIN Last administered on 12/15/16 10:55; Start 12/14/16 at 15:00 Acetaminophen (Tylenol) 650 mg PRN Q6HRS PRN PO MILD PAIN / TEMP Last administered on 12/14/16 16:02; Start 12/14/16 at 15:45 Active Scripts Active Reported Vitamin B-12 (Cyanocobalamin (Vitamin B-12)) 1,000 Mcg Tablet 1 Tab PO DAILY All Day Allergy (Cetirizine Hcl) 10 Mg Tablet 10 Mg PO Advair 250-50 Diskus (Fluticasone/Salmeterol) 1 Each Disk.w.dev 1 Puff IH BID Omeprazole 20 Mg Capsule. 20 Mg PO BID Simvastatin 20 Mg Tablet 1 Tab PO QHS Valsartan-Hctz 80-12.5 Mg Tab (Valsartan/Hydrochlorothiazide) 1 Each Tablet 1 Each PO DAILY Aspir 81 (Aspirin) 81 Mg Tablet. 1 Tab PO DAILY Vitals/I & O Vital Sign - Last 24 Hours 12/14/16 12/14/16 12/14/16 12/14/16 17:00 17:34 18:00 20:00 Temp 99.8 99.8 Pulse 80 89 Resp 21 B/P 121/63 130/66 Pulse Ox 92 94 93 94 O2 Delivery Room Air Room Air Room Air Room Air 12/14/16 12/14/16 12/14/16 12/15/16 20:00 20:00 20:23 00:00 Temp 100.0 99.2 100.0 99.2 Pulse 78 73 Resp 19 B/P 116/75 123/67 Pulse Ox 94 95 95 O2 Delivery Room Air Room Air Room Air Room Air 12/15/16 12/15/16 12/15/16 12/15/16 04:00 04:22 05:39 08:03 Temp 98.2 98.2 Pulse 74 Resp 16 B/P 153/86 Pulse Ox 93 93 94 O2 Delivery Room Air Room Air Room Air 12/15/16 12/15/16 12/15/16 12/15/16 08:21 08:30 08:46 08:47 Pulse 82 86 88 Resp 20 B/P 167/93 167/93 167/93 Pulse Ox 95 98 O2 Delivery Room Air Room Air 12/15/16 12/15/16 12/15/16 12/15/16 10:55 11:50 12:00 12:18 Pulse 87 Resp 22 B/P 154/75 Pulse Ox 97 O2 Delivery Room Air Room Air Room Air Room Air 12/15/16 12/15/16 15:49 16:18 Temp 98.3 98.3 Pulse 93 Resp 20 B/P 160/69 Pulse Ox 95 O2 Delivery Room Air Room Air Intake and Output 12/14/16 12/14/16 12/15/16 15:00 23:00 07:00 Intake Total 1275 ml Output Total 25 ml 530 ml Balance -25 ml 745 ml Benigno WAKEFIELD MD Dec 15, 2016 16:37
[2016-12-15] MEDS: PANTOPRAZOLE 40 MG TABLET. PO SCH (20:39)
[2016-12-15] MEDS: ATORVASTATIN CALCIUM 10 MG TABLET. PO SCH (20:39)
[2016-12-16 04:07] VITALS: BP 119/78
[2016-12-16] MEDS: MEROPENEM 1 GM in IV NORMAL SALINE 100ML 100 ML IV SCH ×3 (05:22→21:40)
[2016-12-16 05:40] LABS: BASO # 0.1 x10^3/uL (0.0-0.2); BASO % 1 % (0-3); EOS % 2 % (0-3); HEMATOCRIT 31.1 % (39.0-53.0); HEMOGLOBIN 10.9 g/dL (13.0-17.5); LYMPH # 1.3 x10^3/uL (1.0-4.8); LYMPH % 13 % (24-48); MEAN CORPUSCULAR HEMOGLOBIN 33 pg (25-35); MEAN CORPUSCULAR HGB CONC 35 g/dL (31-37); MEAN CORPUSCULAR VOLUME 95 fL (79-100); MONO % 12 % (0-9); NEUT % 72 % (31-73); PLATELET COUNT 466 x10^3/uL (140-400); RED BLOOD COUNT 3.29 x10^6/uL (4.30-5.70); RED CELL DISTRIBUTION WIDTH 13.6 % (11.5-14.5)
[2016-12-16 06:43] LABS: CALCIUM 8.3 mg/dL (8.5-10.1); CREATININE 0.8 mg/dL (0.7-1.3); GFR 95.6; POTASSIUM 3.5 mmol/L (3.5-5.1)
[2016-12-16] MEDS: IPRATRPIUM/ALBUTEROL 0.5/2.5MG 3 ML NEBU. NEB SCH ×4 (07:00→19:28)
[2016-12-16] MEDS: BUDESONIDE 0.5 MG/2 ML NEBU NEB SCH ×2 (07:00→19:27)
[2016-12-16 08:00] VITALS: BP 161/85
[2016-12-16] MEDS: CYANOCOBALAMIN (VITAMIN B-12) 1,000 MCG TABLET. PO SCH (08:01)
[2016-12-16] MEDS: LUBIPROSTONE 8 MCG CAPSULE PO SCH ×2 (08:01→17:09)
[2016-12-16] MEDS: ASPIRIN ENTERIC COATED 81 MG TABLET.DR. PO SCH (08:01)
[2016-12-16] MEDS: LOSARTAN POTASSIUM 50 MG TABLET. PO SCH (08:02)
[2016-12-16] MEDS: DILTIAZEM HCL 180 MG CAP.ER.24H PO SCH (08:02)
[2016-12-16] MEDS: CETIRIZINE HCL 10 MG TABLET PO SCH (08:02)
--- NOTE | 2016-12-16 08:27 | PDOC ---
Infectious Disease Note Subjective Subjective Some better yet. ROS ROS GEN: Denies fevers, chills, sweats HEENT: Denies blurred vision, sore throat CV: Denies chest pain RESP: Denies shortness of air, cough GI: Denies n/v/d NEURO: Denies confusion, dizziness MSK: Denies weakness, joint pain/swelling Vital Sign Vital Signs Vital Signs Date Time Temp Pulse Resp B/P Pulse Ox O2 Delivery O2 Flow Rate FiO2 12/16/16 08:02 90 119/78 12/16/16 07:02 97 Room Air 12/16/16 04:07 98.6 20 98.6 Physical Exam PHYSICAL EXAM GENERAL: NAD, Alert, in chair HEENT: PERRL, OC/OP -clear NECK: Supple, no JVD, no LN LUNGS: Clear HEART: S1S2, no gallop, no murmur ABD: Soft, NT, no organomegaly, no rebound. Drain with cloudy serosanginous EXT: No edema, no cyanosis MECHANICAL FACILITIES TECHNICIAN: Alert, oriented x 3, no focal neurologic deficit SKIN: No rash IV: ok Labs Lab Laboratory Tests Test 12/15/16 08:35 12/16/16 05:20 White Blood Count 13.7x10^3/uL (4.0-11.0) 10.0x10^3/uL (4.0-11.0) Red Blood Count 3.55x10^6/uL (4.30-5.70) 3.29x10^6/uL (4.30-5.70) Hemoglobin 11.6g/dL (13.0-17.5) 10.9g/dL (13.0-17.5) Hematocrit 34.7% (39.0-53.0) 31.1% (39.0-53.0) Mean Corpuscular Volume 98fL (79-100) 95fL (79-100) Mean Corpuscular Hemoglobin 33pg (25-35) 33pg (25-35) Mean Corpuscular Hemoglobin Concent 34g/dL (31-37) 35g/dL (31-37) Red Cell Distribution Width 13.3% (11.5-14.5) 13.6% (11.5-14.5) Platelet Count 448x10^3/uL (140-400) 466x10^3/uL (140-400) Sodium Level 136mmol/L (136-145) 138mmol/L (136-145) Potassium Level 3.3mmol/L (3.5-5.1) 3.5mmol/L (3.5-5.1) Chloride Level 99mmol/L (98-107) 102mmol/L (98-107) Carbon Dioxide Level 29mmol/L (21-32) 27mmol/L (21-32) Anion Gap 8 (6-14) 9 (6-14) Blood Urea Nitrogen 12mg/dL (8-26) 6mg/dL (8-26) Creatinine 1.0mg/dL (0.7-1.3) 0.8mg/dL (0.7-1.3) Estimated GFR (Cockcroft-Gault) 73.9 95.6 Glucose Level 111mg/dL (70-99) 104mg/dL (70-99) Calcium Level 8.4mg/dL (8.5-10.1) 8.3mg/dL (8.5-10.1) Neutrophils (%) (Auto) 72% (31-73) Lymphocytes (%) (Auto) 13% (24-48) Monocytes (%) (Auto) 12% (0-9) Eosinophils (%) (Auto) 2% (0-3) Basophils (%) (Auto) 1% (0-3) Neutrophils # (Auto) 7.2x10^3uL (1.8-7.7) Lymphocytes # (Auto) 1.3x10^3/uL (1.0-4.8) Monocytes # (Auto) 1.2x10^3/uL (0.0-1.1) Eosinophils # (Auto) 0.2x10^3/uL (0.0-0.7) Basophils # (Auto) 0.1x10^3/uL (0.0-0.2) Micro Klebsiella pneumoniae Recovered from aerobic and anaerobic bottles. 2 OF 2 SETS ANTIMICROBIAL SUSCEPTIBILITY Final Comment S = Susceptible; I = Intermediate; R = Resistant P = Positive; N = Negative MICS are expressed in micrograms per mL Antibiotic RSLT#1 RSLT#2 RSLT#3 RSLT#4 Amoxicillin/Clavulanic Acid S<=2 Ampicillin R>=32 Cefepime S<=1 Ceftriaxone S<=1 Cefuroxime S =2 Cephalothin S =4 Ciprofloxacin S<=0.25 Ertapenem S<=0.5 Gentamicin S<=1 Imipenem S<=1 Levofloxacin S<=0.12 Nitrofurantoin I =64 Piperacillin R =32 Tetracycline S<=1 Tobramycin S<=1 Trimethoprim/Sulfa S<=20 Performed at: [facility] - [facility] Objective Assessment Klebsiella - sepsis -POA 12/12 Liver lesion ? abscess s/p drain 12/14 Fever - should improve. Clinically he looks better Leukocytosis - better Afib -new Abd discomfort -better Plan Plan of Care Cont Meropenem taper once final cults from abscess return Would probably benefit from Colonoscopy as urine is not the source Labs this am F/u cults/labs SARIAH YEE MD Dec 16, 2016 08:27
--- NOTE | 2016-12-16 08:33 | PDOC ---
PROGRESS NOTES Subjective Subjective Patient reports that he is feeling well today. He has been passing gas and had a bowel movement last night. His appetite is improved today and his abdomen feels less distended than yesterday. Denies any significant pain or discomfort at the site of his drain. Objective Objective Vital Signs Date Time Temp Pulse Resp B/P Pulse Ox O2 Delivery O2 Flow Rate FiO2 12/16/16 08:02 90 119/78 12/16/16 07:02 97 Room Air 12/16/16 04:07 98.6 20 98.6 12/14/16 10:53 4.0 Intake and Output 12/16/16 07:00 Intake Total 1566 ml Output Total 1230 ml Balance 336 ml Intake Oral 1000 ml IV Total 566 ml Output Urine Total 1200 ml Drainage Total 30 ml # Voids 1 Physical Exam Abdomen: Normal bowel sounds Heart: Regular rate, Normal S1, Normal S2 General: Alert, Oriented X3, Cooperative Lungs: Clear to auscultation Assessment Assessment Problems Medical Problems: (1) Atrial fibrillation with RVR - converted with diltiazem but hypertensive so will increase dose to 240 mg from 180 mg (2) Dehydration-resolved with IVF, off HCTZ which was part of DiovanHCT of home meds Status: Acute (3) Sepsis, Klebsiella pneumoniae -patient afebrile past 48 hrs since liver abscess drained, liver biopsy confirmed abscess with same organism, he now has a pigtail catheter in his liver with 30 cc drainage overnight, on Meropenem Status: Acute (4) Generalized weakness-encourage movement up to chair today Status: Acute (5) Hypokalemia-20 mEq of Potassium given Status: Acute (6) Leukocytosis- resolved (7) Sepsis due to undetermined organism-Continue Meropenem, await culture results Status: Acute (8) Liver lesion-biopsy = abscess (9) COPD, continue neb treatments, resume Advair after discharge Status: Acute Plan Plan of Care as above Comment Review of Relevant I have reviewed the following items norma (where applicable) has been applied. Labs Laboratory Tests Test 12/14/16 08:40 12/15/16 08:35 12/16/16 05:20 Prothrombin Time 14.7SEC (11.7-14.0) Prothromb Time International Ratio 1.2 (0.8-1.1) White Blood Count 13.7x10^3/uL (4.0-11.0) 10.0x10^3/uL (4.0-11.0) Red Blood Count 3.55x10^6/uL (4.30-5.70) 3.29x10^6/uL (4.30-5.70) Hemoglobin 11.6g/dL (13.0-17.5) 10.9g/dL (13.0-17.5) Hematocrit 34.7% (39.0-53.0) 31.1% (39.0-53.0) Mean Corpuscular Volume 98fL (79-100) 95fL (79-100) Mean Corpuscular Hemoglobin 33pg (25-35) 33pg (25-35) Mean Corpuscular Hemoglobin Concent 34g/dL (31-37) 35g/dL (31-37) Red Cell Distribution Width 13.3% (11.5-14.5) 13.6% (11.5-14.5) Platelet Count 448x10^3/uL (140-400) 466x10^3/uL (140-400) Sodium Level 136mmol/L (136-145) 138mmol/L (136-145) Potassium Level 3.3mmol/L (3.5-5.1) 3.5mmol/L (3.5-5.1) Chloride Level 99mmol/L (98-107) 102mmol/L (98-107) Carbon Dioxide Level 29mmol/L (21-32) 27mmol/L (21-32) Anion Gap 8 (6-14) 9 (6-14) Blood Urea Nitrogen 12mg/dL (8-26) 6mg/dL (8-26) Creatinine 1.0mg/dL (0.7-1.3) 0.8mg/dL (0.7-1.3) Estimated GFR (Cockcroft-Gault) 73.9 95.6 Glucose Level 111mg/dL (70-99) 104mg/dL (70-99) Calcium Level 8.4mg/dL (8.5-10.1) 8.3mg/dL (8.5-10.1) Neutrophils (%) (Auto) 72% (31-73) Lymphocytes (%) (Auto) 13% (24-48) Monocytes (%) (Auto) 12% (0-9) Eosinophils (%) (Auto) 2% (0-3) Basophils (%) (Auto) 1% (0-3) Neutrophils # (Auto) 7.2x10^3uL (1.8-7.7) Lymphocytes # (Auto) 1.3x10^3/uL (1.0-4.8) Monocytes # (Auto) 1.2x10^3/uL (0.0-1.1) Eosinophils # (Auto) 0.2x10^3/uL (0.0-0.7) Basophils # (Auto) 0.1x10^3/uL (0.0-0.2) Laboratory Tests Test 12/15/16 08:35 12/16/16 05:20 White Blood Count 13.7x10^3/uL (4.0-11.0) 10.0x10^3/uL (4.0-11.0) Red Blood Count 3.55x10^6/uL (4.30-5.70) 3.29x10^6/uL (4.30-5.70) Hemoglobin 11.6g/dL (13.0-17.5) 10.9g/dL (13.0-17.5) Hematocrit 34.7% (39.0-53.0) 31.1% (39.0-53.0) Mean Corpuscular Volume 98fL (79-100) 95fL (79-100) Mean Corpuscular Hemoglobin 33pg (25-35) 33pg (25-35) Mean Corpuscular Hemoglobin Concent 34g/dL (31-37) 35g/dL (31-37) Red Cell Distribution Width 13.3% (11.5-14.5) 13.6% (11.5-14.5) Platelet Count 448x10^3/uL (140-400) 466x10^3/uL (140-400) Sodium Level 136mmol/L (136-145) 138mmol/L (136-145) Potassium Level 3.3mmol/L (3.5-5.1) 3.5mmol/L (3.5-5.1) Chloride Level 99mmol/L (98-107) 102mmol/L (98-107) Carbon Dioxide Level 29mmol/L (21-32) 27mmol/L (21-32) Anion Gap 8 (6-14) 9 (6-14) Blood Urea Nitrogen 12mg/dL (8-26) 6mg/dL (8-26) Creatinine 1.0mg/dL (0.7-1.3) 0.8mg/dL (0.7-1.3) Estimated GFR (Cockcroft-Gault) 73.9 95.6 Glucose Level 111mg/dL (70-99) 104mg/dL (70-99) Calcium Level 8.4mg/dL (8.5-10.1) 8.3mg/dL (8.5-10.1) Neutrophils (%) (Auto) 72% (31-73) Lymphocytes (%) (Auto) 13% (24-48) Monocytes (%) (Auto) 12% (0-9) Eosinophils (%) (Auto) 2% (0-3) Basophils (%) (Auto) 1% (0-3) Neutrophils # (Auto) 7.2x10^3uL (1.8-7.7) Lymphocytes # (Auto) 1.3x10^3/uL (1.0-4.8) Monocytes # (Auto) 1.2x10^3/uL (0.0-1.1) Eosinophils # (Auto) 0.2x10^3/uL (0.0-0.7) Basophils # (Auto) 0.1x10^3/uL (0.0-0.2) Microbiology 12/14/16 Blood Culture - Preliminary, Resulted NO GROWTH AFTER 1 DAY 12/12/16 Throat Culture - Final, Complete 12/12/16 - Final, Complete 12/14/16 Anaerobic/Aerobic Culture, Resulted Pending 12/14/16 Anaerobic Culture Result 1 (MARK), Resulted Pending 12/14/16 Aerobic Culture - Preliminary, Resulted 12/14/16 Aerobic Culture Result 1 (MARK) - Preliminary, Resulted Medications Current Medications Sodium Chloride (Iv Sodium Chloride 0.9% 1000ml Bag) 1,000 ml @ 1,000 mls/hr Q1H IV Last administered on 12/12/16t 15:55; Start 12/12/16 at 15:45; Stop at 16:44; Status DC Ondansetron HCl (Zofran) 4 mg 1X ONCE IV Last administered on 12/12/16 15:58 ; Start 12/12/16 at 15:45; Stop 12/12/16 at 15:48; Status DC Ketorolac Tromethamine (Toradol) 30 mg 1X ONCE IV Last administered on 15:58; Start 12/12/16 at 15:45; Stop 12/12/16 at 15:48; Status DC Acetaminophen (Tylenol) 650 mg 1X ONCE PO Last administered on 12/12/16 16:02 ; Start 12/12/16 at 16:00; Stop 12/12/16 at 16:01; Status DC Ondansetron HCl 4 mg 4 mg PRN Q8HRS PRN IV NAUSEA/VOMITING; Start 12/12/16 at 17:30; Stop 12/13/16 at 17:29; Status DC Sodium Chloride (Iv Sodium Chloride 0.9% 1000ml Bag) 1,000 ml @ 125 mls/hr Q8H IV Last administered on 12/12/16 23:00; Start 12/12/16 at 17:45; Stop at 17:44; Status DC Acetaminophen (Tylenol) 650 mg PRN Q4HRS PRN PO FEVER; Start 12/12/16 at 17:30 ; Stop 12/13/16 at 17:29; Status DC Vancomycin HCl (Vanco Per Pharmacy) 1 each PRN DAILY PRN MC SEE COMMENTS Last administered on 12/12/16 19:56; Start 12/12/16 at 18:45; Stop 12/13/16 at 08:21 ; Status DC Piperacillin Sod/ Tazobactam Sod 1 each 1 each PRN DAILY PRN MC SEE COMMENTS; Start 12/12/16 at 18:45; Stop 12/13/16 at 08:23; Status DC Diltiazem HCl/ Dextrose (Cardizem) 125 ml @ 0 mls/hr CONT PRN IV SEE I/O RECORD Last administered on 12/13/16 05:54; Start 12/12/16 at 18:45; Stop 12/13 at 16:44; Status DC Diltiazem HCl 10 mg 10 mg 1X ONCE IVP Last administered on 12/12/16 18:38; Start 12/12/16 at 18:45; Stop 12/12/16 at 18:46; Status DC Vancomycin HCl 2 gm/Sodium Chloride 500 ml @ 250 mls/hr 1X ONCE IV Last administered on 12/12/16 19:26; Start 12/12/16 at 19:00; Stop 12/12/16 at 20:59 ; Status DC Piperacillin Sod/ Tazobactam Sod 3.375 gm/Sodium Chloride 50 ml @ 100 mls/hr 1X ONCE IV Last administered on 12/12/16 18:52; Start 12/12/16 at 19:00; Stop 12/12/16 at 19:29; Status DC Piperacillin Sod/ Tazobactam Sod/ Sodium Chloride (Zosyn/Iv Sodium Chloride 0.9 % 50ml) 50 ml @ 100 mls/hr Q6HRS IV Last administered on 12/13/16 05:48; Start 12/13/16 at 00:00; Stop 12/13/16 at 08:23; Status DC Diltiazem HCl 20 mg 20 mg 1X ONCE IVP Last administered on 12/12/16 19:15; Start 12/12/16 at 19:15; Stop 12/12/16 at 19:17; Status DC Sodium Chloride 3,060 ml @ 765 mls/hr Q4H IV Last administered on 12/12/16 21 :03; Start 12/12/16 at 19:30; Stop 12/12/16 at 23:29; Status DC Vancomycin HCl/ Sodium Chloride (Iv Sodium Chloride 0.9% 500ml Bag) 500 ml @ 250 mls/hr Q12H IV Last administered on 12/13/16 05:52; Start 12/13/16 at 07: 00; Stop 12/13/16 at 08:21; Status DC Vancomycin HCl 1 each 1X ONCE MC ; Start 12/14/16 at 06:30; Stop 12/14/16 at 06 :30; Status DC Digoxin (Lanoxin) 500 mcg 1X ONCE IV Last administered on 12/12/16 21:01; Start 12/12/16 at 21:00; Stop 12/12/16 at 21:01; Status DC Potassium Chloride (Klor-Con) 40 meq 1X ONCE PO Last administered on 21:41; Start 12/12/16 at 22:00; Stop 12/12/16 at 22:01; Status DC Pantoprazole Sodium (Protonix) 40 mg DAILYAC PO ; Start 12/13/16 at 07:30; Stop 12/13/16 at 07:30; Status DC Pantoprazole Sodium (Protonix) 40 mg HS PO Last administered on 12/15/16 20:39 ; Start 12/12/16 at 23:30 Aspirin (Ecotrin) 81 mg DAILY PO Last administered on 12/16/16 08:01; Start at 09:00 Cetirizine HCl (Zyrtec) 10 mg DAILY PO Last administered on 12/16/16 08:02; Start 12/13/16 at 09:00 Cyanocobalamin (Vitamin B-12) 1,000 mcg DAILY PO Last administered on 08:01; Start 12/13/16 at 09:00 Atorvastatin Calcium (Lipitor) 10 mg QHS PO Last administered on 12/15/16 20: 39; Start 12/13/16 at 21:00 Non-Formulary Medication 1 puff BID IH ; Start 12/13/16 at 09:00; Stop 12/13/16 at 09:00; Status DC Losartan Potassium (Cozaar) 50 mg DAILY PO Last administered on 12/16/16 08:02 ; Start 12/13/16 at 09:00 Hydrochlorothiazide (Microzide) 12.5 mg DAILY PO Last administered on 10:02; Start 12/13/16 at 09:00; Stop 12/14/16 at 08:45; Status DC Albuterol/ Ipratropium (Duoneb) 3 ml RTQID NEB Last administered on 12/16/16 07:00; Start 12/13/16 at 08:30 Budesonide 0.5 mg 0.5 mg RTBID NEB Last administered on 12/16/16 07:00; Start 12/13/16 at 08:30 Meropenem/Sodium Chloride (Merrem/Iv Sodium Chloride 0.9% 100ml) 100 ml @ 200 mls/hr Q8HRS IV Last administered on 12/16/16 05:22; Start 12/13/16 at 08:30 Iohexol (Omnipaque 240 Mg/ml) 30 ml 1X ONCE PO Last administered on 12/13/16 09:15; Start 12/13/16 at 09:15; Stop 12/13/16 at 09:16; Status DC Iohexol (Omnipaque 300 Mg/ml) 75 ml 1X ONCE IV Last administered on 12/13/16 10:34; Start 12/13/16 at 09:15; Stop 12/13/16 at 09:16; Status DC Info 1 each 1 each PRN DAILY PRN MC SEE COMMENTS; Start 12/13/16 at 09:15; Stop 12/15/16 at 09:14; Status DC Sodium Chloride 500 ml @ 500 mls/hr 1X ONCE IV Last administered on 12:00; Start 12/13/16 at 12:00; Stop 12/13/16 at 12:59; Status DC Sodium Chloride (Iv Sodium Chloride 0.9% 1000ml Bag) 1,000 ml @ 150 mls/hr 1X ONCE IV Last administered on 12/13/16 12:00; Start 12/13/16 at 12:00; Stop at 18:39; Status DC Zolpidem Tartrate (Ambien) 5 mg PRN QHS PRN PO INSOMNIA, MAY REPEAT IN 1HR Last administered on 12/13/16 22:14; Start 12/13/16 at 16:45; Stop 12/14/16 at 08:45; Status DC Bisacodyl (Dulcolax Tab) 10 mg PRN DAILY PRN PO CONSTIPATION; Start 12/13/16 at 16:45 Lubiprostone (Amitiza) 8 mcg BIDWMEALS PO Last administered on 12/16/16 08:01 ; Start 12/13/16 at 17:00 Diltiazem HCl (Cardizem 24hr Cd) 180 mg 1X ONCE PO Last administered on 17:32; Start 12/13/16 at 16:45; Stop 12/13/16 at 16:48; Status DC Diltiazem HCl (Cardizem 24hr Cd) 180 mg DAILY PO Last administered on 08:02; Start 12/14/16 at 09:00 Guaifenesin (Robitussin Dm) 10 ml PRN Q4HRS PRN PO COUGH Last administered on 11:58; Start 12/13/16 at 19:45; Stop 12/14/16 at 16:00; Status DC Guaifenesin/ Codeine Phosphate (Robitussin Ac) 5 ml PRN Q4HRS PRN PO COUGH; Start 12/13/16 at 19:45 Guaifenesin/ Codeine Phosphate (Robitussin Ac) 10 ml PRN Q4HRS PRN PO COUGH; Start 12/13/16 at 19:45 Potassium Chloride (Klor-Con) 20 meq 1X ONCE PO Last administered on 09:29; Start 12/14/16 at 08:45; Stop 12/14/16 at 08:47; Status DC Lidocaine/Sodium Bicarbonate (Buffered Lidocaine 1%) 20 ml 1X ONCE IJ Last administered on 12/14/16 10:51; Start 12/14/16 at 10:15; Stop 12/14/16 at 10:18 ; Status DC Midazolam HCl (Versed) 2 mg 1X ONCE IV Last administered on 12/14/16 10:51; Start 12/14/16 at 10:15; Stop 12/14/16 at 10:18; Status DC Fentanyl Citrate (Fentanyl 2ml Vial) 100 mcg 1X ONCE IV Last administered on 10:52; Start 12/14/16 at 10:15; Stop 12/14/16 at 10:18; Status DC Flumazenil (Romazicon) 0.5 mg STK-MED ONCE IV ; Start 12/14/16 at 10:08; Stop at 10:17; Status DC Naloxone HCl (Narcan) 0.4 mg STK-MED ONCE .ROUTE ; Start 12/14/16 at 10:08; Stop 12/14/16 at 10:17; Status DC Acetaminophen/ Hydrocodone Bitart (Lortab 7.5/325) 1 tab PRN Q4HRS PRN PO MODERATE - SEVERE PAIN Last administered on 12/15/16 17:58; Start 12/14/16 at 15:00 Acetaminophen (Tylenol) 650 mg PRN Q6HRS PRN PO MILD PAIN / TEMP Last administered on 12/14/16 16:02; Start 12/14/16 at 15:45 Active Scripts Active Reported Vitamin B-12 (Cyanocobalamin (Vitamin B-12)) 1,000 Mcg Tablet 1 Tab PO DAILY All Day Allergy (Cetirizine Hcl) 10 Mg Tablet 10 Mg PO Advair 250-50 Diskus (Fluticasone/Salmeterol) 1 Each Disk.w.dev 1 Puff IH BID Omeprazole 20 Mg Capsule. 20 Mg PO BID Simvastatin 20 Mg Tablet 1 Tab PO QHS Valsartan-Hctz 80-12.5 Mg Tab (Valsartan/Hydrochlorothiazide) 1 Each Tablet 1 Each PO DAILY Aspir 81 (Aspirin) 81 Mg Tablet. 1 Tab PO DAILY Vitals/I & O Vital Sign - Last 24 Hours 12/15/16 12/15/16 12/15/16 12/15/16 08:46 08:47 10:55 12:00 Pulse 86 88 87 Resp 22 B/P 167/93 167/93 154/75 Pulse Ox 97 O2 Delivery Room Air Room Air 12/15/16 12/15/16 12/15/16 12/15/16 12:18 15:49 16:18 17:58 Temp 98.3 98.3 Pulse 93 Resp 20 B/P 160/69 Pulse Ox 95 O2 Delivery Room Air Room Air Room Air Room Air 12/15/16 12/15/16 12/15/16 12/15/16 19:00 19:43 20:00 20:00 Pulse 75 Resp 24 23 B/P 156/77 Pulse Ox 94 96 94 O2 Delivery Room Air Room Air Room Air Room Air 12/15/16 12/15/16 12/16/16 12/16/16 20:01 23:55 04:07 07:02 Temp 99.2 98.2 98.6 99.2 98.2 98.6 Pulse 73 73 Resp 22 20 B/P 136/73 119/78 Pulse Ox 95 96 97 O2 Delivery Room Air Room Air Room Air 12/16/16 12/16/16 08:02 08:02 Pulse 86 90 B/P 119/78 119/78 Intake and Output 12/15/16 12/15/16 12/16/16 15:00 23:00 07:00 Intake Total 100 ml 1466 ml Output Total 1230 ml Balance 100 ml 236 ml Benigno WAKEFIELD MD Dec 16, 2016 08:33
[2016-12-16] MEDS: DILTIAZEM HCL 240 MG CAP.ER.24H PO SCH (09:00)
[2016-12-16] MEDS: DILTIAZEM HCL 30 MG TABLET PO SCH ×2 (09:30→21:40)
--- NOTE | 2016-12-16 11:10 | PDOC ---
PROGRESS NOTES Subjective Subjective Patient reports he is feeling pretty good. Has been in normal sinus rhythm with intermittent elevated blood pressures. Denies any chest pain, shortness of breath or palpitations. Objective Objective Vital Signs Date Time Temp Pulse Resp B/P Pulse Ox O2 Delivery O2 Flow Rate FiO2 12/16/16 08:02 90 119/78 12/16/16 07:02 97 Room Air 12/16/16 04:07 98.6 20 98.6 12/14/16 10:53 4.0 Intake and Output 12/16/16 07:00 Intake Total 1566 ml Output Total 1230 ml Balance 336 ml Intake Oral 1000 ml IV Total 566 ml Output Urine Total 1200 ml Drainage Total 30 ml # Voids 1 Physical Exam Heart: Regular rate, Normal S1, Normal S2, No murmurs Extremities: No clubbing, No cyanosis, No edema, Normal pulses General: Alert, Cooperative, No acute distress Lungs: Clear to auscultation, Normal air movement Neck: Supple, No JVD Assessment Assessment Patient is a 71 year old male admitted for dehydration fevers of unknown origin with a new onset of Afib with RVR. Patient's heart rhythm converted with fluid recussitation and cardizem and has been in normal sinus rhythm since. Patient has had some labile pressures, cardizem dose was increased. Problems Medical Problems: (1) Atrial fibrillation with RVR Status: Acute (2) Dehydration Status: Acute (3) FUO (fever of unknown origin) Status: Acute (4) Generalized weakness Status: Acute (5) Hypokalemia Status: Acute (6) Leukocytosis Status: Acute (7) Sepsis due to undetermined organism Status: Acute Plan Plan of Care Agree with medication dose increase, patient is otherwise compensated from a cardiac standpoint. Thank you for including me in the care of this patient. Comment Review of Relevant I have reviewed the following items norma (where applicable) has been applied. Labs Laboratory Tests Test 12/15/16 08:35 12/16/16 05:20 White Blood Count 13.7x10^3/uL (4.0-11.0) 10.0x10^3/uL (4.0-11.0) Red Blood Count 3.55x10^6/uL (4.30-5.70) 3.29x10^6/uL (4.30-5.70) Hemoglobin 11.6g/dL (13.0-17.5) 10.9g/dL (13.0-17.5) Hematocrit 34.7% (39.0-53.0) 31.1% (39.0-53.0) Mean Corpuscular Volume 98fL (79-100) 95fL (79-100) Mean Corpuscular Hemoglobin 33pg (25-35) 33pg (25-35) Mean Corpuscular Hemoglobin Concent 34g/dL (31-37) 35g/dL (31-37) Red Cell Distribution Width 13.3% (11.5-14.5) 13.6% (11.5-14.5) Platelet Count 448x10^3/uL (140-400) 466x10^3/uL (140-400) Sodium Level 136mmol/L (136-145) 138mmol/L (136-145) Potassium Level 3.3mmol/L (3.5-5.1) 3.5mmol/L (3.5-5.1) Chloride Level 99mmol/L (98-107) 102mmol/L (98-107) Carbon Dioxide Level 29mmol/L (21-32) 27mmol/L (21-32) Anion Gap 8 (6-14) 9 (6-14) Blood Urea Nitrogen 12mg/dL (8-26) 6mg/dL (8-26) Creatinine 1.0mg/dL (0.7-1.3) 0.8mg/dL (0.7-1.3) Estimated GFR (Cockcroft-Gault) 73.9 95.6 Glucose Level 111mg/dL (70-99) 104mg/dL (70-99) Calcium Level 8.4mg/dL (8.5-10.1) 8.3mg/dL (8.5-10.1) Neutrophils (%) (Auto) 72% (31-73) Lymphocytes (%) (Auto) 13% (24-48) Monocytes (%) (Auto) 12% (0-9) Eosinophils (%) (Auto) 2% (0-3) Basophils (%) (Auto) 1% (0-3) Neutrophils # (Auto) 7.2x10^3uL (1.8-7.7) Lymphocytes # (Auto) 1.3x10^3/uL (1.0-4.8) Monocytes # (Auto) 1.2x10^3/uL (0.0-1.1) Eosinophils # (Auto) 0.2x10^3/uL (0.0-0.7) Basophils # (Auto) 0.1x10^3/uL (0.0-0.2) Laboratory Tests Test 12/16/16 05:20 White Blood Count 10.0x10^3/uL (4.0-11.0) Red Blood Count 3.29x10^6/uL (4.30-5.70) Hemoglobin 10.9g/dL (13.0-17.5) Hematocrit 31.1% (39.0-53.0) Mean Corpuscular Volume 95fL (79-100) Mean Corpuscular Hemoglobin 33pg (25-35) Mean Corpuscular Hemoglobin Concent 35g/dL (31-37) Red Cell Distribution Width 13.6% (11.5-14.5) Platelet Count 466x10^3/uL (140-400) Neutrophils (%) (Auto) 72% (31-73) Lymphocytes (%) (Auto) 13% (24-48) Monocytes (%) (Auto) 12% (0-9) Eosinophils (%) (Auto) 2% (0-3) Basophils (%) (Auto) 1% (0-3) Neutrophils # (Auto) 7.2x10^3uL (1.8-7.7) Lymphocytes # (Auto) 1.3x10^3/uL (1.0-4.8) Monocytes # (Auto) 1.2x10^3/uL (0.0-1.1) Eosinophils # (Auto) 0.2x10^3/uL (0.0-0.7) Basophils # (Auto) 0.1x10^3/uL (0.0-0.2) Sodium Level 138mmol/L (136-145) Potassium Level 3.5mmol/L (3.5-5.1) Chloride Level 102mmol/L (98-107) Carbon Dioxide Level 27mmol/L (21-32) Anion Gap 9 (6-14) Blood Urea Nitrogen 6mg/dL (8-26) Creatinine 0.8mg/dL (0.7-1.3) Estimated GFR (Cockcroft-Gault) 95.6 Glucose Level 104mg/dL (70-99) Calcium Level 8.3mg/dL (8.5-10.1) Microbiology 12/14/16 Blood Culture - Preliminary, Resulted NO GROWTH AFTER 1 DAY 12/12/16 Throat Culture - Final, Complete 12/12/16 - Final, Complete 12/14/16 Anaerobic/Aerobic Culture, Resulted Pending 12/14/16 Anaerobic Culture Result 1 (MARK), Resulted Pending 12/14/16 Aerobic Culture - Preliminary, Resulted 12/14/16 Aerobic Culture Result 1 (MARK) - Preliminary, Resulted Medications Current Medications Sodium Chloride (Iv Sodium Chloride 0.9% 1000ml Bag) 1,000 ml @ 1,000 mls/hr Q1H IV Last administered on 12/12/16 15:55; Start 12/12/16 at 15:45; Stop at 16:44; Status DC Ondansetron HCl (Zofran) 4 mg 1X ONCE IV Last administered on 12/12/16 15:58 ; Start 12/12/16 at 15:45; Stop 12/12/16 at 15:48; Status DC Ketorolac Tromethamine (Toradol) 30 mg 1X ONCE IV Last administered on 15:58; Start 12/12/16 at 15:45; Stop 12/12/16 at 15:48; Status DC Acetaminophen (Tylenol) 650 mg 1X ONCE PO Last administered on 12/12/16 16:02 ; Start 12/12/16 at 16:00; Stop 12/12/16 at 16:01; Status DC Ondansetron HCl 4 mg 4 mg PRN Q8HRS PRN IV NAUSEA/VOMITING; Start 12/12/16 at 17:30; Stop 12/13/16 at 17:29; Status DC Sodium Chloride (Iv Sodium Chloride 0.9% 1000ml Bag) 1,000 ml @ 125 mls/hr Q8H IV Last administered on 12/12/16 23:00; Start 12/12/16 at 17:45; Stop at 17:44; Status DC Acetaminophen (Tylenol) 650 mg PRN Q4HRS PRN PO FEVER; Start 12/12/16 at 17:30 ; Stop 12/13/16 at 17:29; Status DC Vancomycin HCl (Vanco Per Pharmacy) 1 each PRN DAILY PRN MC SEE COMMENTS Last administered on 12/12/16 19:56; Start 12/12/16 at 18:45; Stop 12/13/16 at 08:21 ; Status DC Piperacillin Sod/ Tazobactam Sod 1 each 1 each PRN DAILY PRN MC SEE COMMENTS; Start 12/12/16 at 18:45; Stop 12/13/16 at 08:23; Status DC Diltiazem HCl/ Dextrose (Cardizem) 125 ml @ 0 mls/hr CONT PRN IV SEE I/O RECORD Last administered on 12/13/16 05:54; Start 12/12/16 at 18:45; Stop 12/13 at 16:44; Status DC Diltiazem HCl 10 mg 10 mg 1X ONCE IVP Last administered on 12/12/16 18:38; Start 12/12/16 at 18:45; Stop 12/12/16 at 18:46; Status DC Vancomycin HCl 2 gm/Sodium Chloride 500 ml @ 250 mls/hr 1X ONCE IV Last administered on 12/12/16 19:26; Start 12/12/16 at 19:00; Stop 12/12/16 at 20:59 ; Status DC Piperacillin Sod/ Tazobactam Sod 3.375 gm/Sodium Chloride 50 ml @ 100 mls/hr 1X ONCE IV Last administered on 12/12/16 18:52; Start 12/12/16 at 19:00; Stop 12/12/16 at 19:29; Status DC Piperacillin Sod/ Tazobactam Sod/ Sodium Chloride (Zosyn/Iv Sodium Chloride 0.9 % 50ml) 50 ml @ 100 mls/hr Q6HRS IV Last administered on 12/13/16 05:48; Start 12/13/16 at 00:00; Stop 12/13/16 at 08:23; Status DC Diltiazem HCl 20 mg 20 mg 1X ONCE IVP Last administered on 12/12/16 19:15; Start 12/12/16 at 19:15; Stop 12/12/16 at 19:17; Status DC Sodium Chloride 3,060 ml @ 765 mls/hr Q4H IV Last administered on 12/12/16 21 :03; Start 12/12/16 at 19:30; Stop 12/12/16 at 23:29; Status DC Vancomycin HCl/ Sodium Chloride (Iv Sodium Chloride 0.9% 500ml Bag) 500 ml @ 250 mls/hr Q12H IV Last administered on 12/13/16 05:52; Start 12/13/16 at 07: 00; Stop 12/13/16 at 08:21; Status DC Vancomycin HCl 1 each 1X ONCE MC ; Start 12/14/16 at 06:30; Stop 12/14/16 at 06 :30; Status DC Digoxin (Lanoxin) 500 mcg 1X ONCE IV Last administered on 12/12/16 21:01; Start 12/12/16 at 21:00; Stop 12/12/16 at 21:01; Status DC Potassium Chloride (Klor-Con) 40 meq 1X ONCE PO Last administered on 21:41; Start 12/12/16 at 22:00; Stop 12/12/16 at 22:01; Status DC Pantoprazole Sodium (Protonix) 40 mg DAILYAC PO ; Start 12/13/16 at 07:30; Stop 12/13/16 at 07:30; Status DC Pantoprazole Sodium (Protonix) 40 mg HS PO Last administered on 12/15/16 20:39 ; Start 12/12/16 at 23:30 Aspirin (Ecotrin) 81 mg DAILY PO Last administered on 12/16/16 08:01; Start at 09:00 Cetirizine HCl (Zyrtec) 10 mg DAILY PO Last administered on 12/16/16 08:02; Start 12/13/16 at 09:00 Cyanocobalamin (Vitamin B-12) 1,000 mcg DAILY PO Last administered on 08:01; Start 12/13/16 at 09:00 Atorvastatin Calcium (Lipitor) 10 mg QHS PO Last administered on 12/15/16 20: 39; Start 12/13/16 at 21:00 Non-Formulary Medication 1 puff BID IH ; Start 12/13/16 at 09:00; Stop 12/13/16 at 09:00; Status DC Losartan Potassium (Cozaar) 50 mg DAILY PO Last administered on 12/16/16 08:02 ; Start 12/13/16 at 09:00 Hydrochlorothiazide (Microzide) 12.5 mg DAILY PO Last administered on 10:02; Start 12/13/16 at 09:00; Stop 12/14/16 at 08:45; Status DC Albuterol/ Ipratropium (Duoneb) 3 ml RTQID NEB Last administered on 12/16/16 11:04; Start 12/13/16 at 08:30 Budesonide 0.5 mg 0.5 mg RTBID NEB Last administered on 12/16/16 07:00; Start 12/13/16 at 08:30 Meropenem/Sodium Chloride (Merrem/Iv Sodium Chloride 0.9% 100ml) 100 ml @ 200 mls/hr Q8HRS IV Last administered on 12/16/16 05:22; Start 12/13/16 at 08:30 Iohexol (Omnipaque 240 Mg/ml) 30 ml 1X ONCE PO Last administered on 12/13/16 09:15; Start 12/13/16 at 09:15; Stop 12/13/16 at 09:16; Status DC Iohexol (Omnipaque 300 Mg/ml) 75 ml 1X ONCE IV Last administered on 12/13/16 10:34; Start 12/13/16 at 09:15; Stop 12/13/16 at 09:16; Status DC Info 1 each 1 each PRN DAILY PRN MC SEE COMMENTS; Start 12/13/16 at 09:15; Stop 12/15/16 at 09:14; Status DC Sodium Chloride 500 ml @ 500 mls/hr 1X ONCE IV Last administered on 12:00; Start 12/13/16 at 12:00; Stop 12/13/16 at 12:59; Status DC Sodium Chloride (Iv Sodium Chloride 0.9% 1000ml Bag) 1,000 ml @ 150 mls/hr 1X ONCE IV Last administered on 12/13/16 12:00; Start 12/13/16 at 12:00; Stop at 18:39; Status DC Zolpidem Tartrate (Ambien) 5 mg PRN QHS PRN PO INSOMNIA, MAY REPEAT IN 1HR Last administered on 12/13/16 22:14; Start 12/13/16 at 16:45; Stop 12/14/16 at 08:45; Status DC Bisacodyl (Dulcolax Tab) 10 mg PRN DAILY PRN PO CONSTIPATION; Start 12/13/16 at 16:45 Lubiprostone (Amitiza) 8 mcg BIDWMEALS PO Last administered on 12/16/16 08:01 ; Start 12/13/16 at 17:00 Diltiazem HCl (Cardizem 24hr Cd) 180 mg 1X ONCE PO Last administered on 17:32; Start 12/13/16 at 16:45; Stop 12/13/16 at 16:48; Status DC Diltiazem HCl (Cardizem 24hr Cd) 180 mg DAILY PO Last administered on 08:02; Start 12/14/16 at 09:00; Stop 12/16/16 at 08:51; Status DC Guaifenesin (Robitussin Dm) 10 ml PRN Q4HRS PRN PO COUGH Last administered on 11:58; Start 12/13/16 at 19:45; Stop 12/14/16 at 16:00; Status DC Guaifenesin/ Codeine Phosphate (Robitussin Ac) 5 ml PRN Q4HRS PRN PO COUGH; Start 12/13/16 at 19:45 Guaifenesin/ Codeine Phosphate (Robitussin Ac) 10 ml PRN Q4HRS PRN PO COUGH; Start 12/13/16 at 19:45 Potassium Chloride (Klor-Con) 20 meq 1X ONCE PO Last administered on 09:29; Start 12/14/16 at 08:45; Stop 12/14/16 at 08:47; Status DC Lidocaine/Sodium Bicarbonate (Buffered Lidocaine 1%) 20 ml 1X ONCE IJ Last administered on 12/14/16 10:51; Start 12/14/16 at 10:15; Stop 12/14/16 at 10:18 ; Status DC Midazolam HCl (Versed) 2 mg 1X ONCE IV Last administered on 12/14/16 10:51; Start 12/14/16 at 10:15; Stop 12/14/16 at 10:18; Status DC Fentanyl Citrate (Fentanyl 2ml Vial) 100 mcg 1X ONCE IV Last administered on 10:52; Start 12/14/16 at 10:15; Stop 12/14/16 at 10:18; Status DC Flumazenil (Romazicon) 0.5 mg STK-MED ONCE IV ; Start 12/14/16 at 10:08; Stop at 10:17; Status DC Naloxone HCl (Narcan) 0.4 mg STK-MED ONCE .ROUTE ; Start 12/14/16 at 10:08; Stop 12/14/16 at 10:17; Status DC Acetaminophen/ Hydrocodone Bitart (Lortab 7.5/325) 1 tab PRN Q4HRS PRN PO MODERATE - SEVERE PAIN Last administered on 12/15/16 17:58; Start 12/14/16 at 15:00 Acetaminophen (Tylenol) 650 mg PRN Q6HRS PRN PO MILD PAIN / TEMP Last administered on 12/14/16 16:02; Start 12/14/16 at 15:45 Diltiazem HCl (Cardizem 24hr Cd) 240 mg DAILY PO ; Start 12/16/16 at 09:00 Diltiazem HCl (Cardizem) 30 mg BID PO ; Start 12/16/16 at 09:30; Stop 12/16/16 at 21:01 Active Scripts Active Reported Vitamin B-12 (Cyanocobalamin (Vitamin B-12)) 1,000 Mcg Tablet 1 Tab PO DAILY All Day Allergy (Cetirizine Hcl) 10 Mg Tablet 10 Mg PO Advair 250-50 Diskus (Fluticasone/Salmeterol) 1 Each Disk.w.dev 1 Puff IH BID Omeprazole 20 Mg Capsule. 20 Mg PO BID Simvastatin 20 Mg Tablet 1 Tab PO QHS Valsartan-Hctz 80-12.5 Mg Tab (Valsartan/Hydrochlorothiazide) 1 Each Tablet 1 Each PO DAILY Aspir 81 (Aspirin) 81 Mg Tablet. 1 Tab PO DAILY Vitals/I & O Vital Sign - Last 24 Hours 12/15/16 12/15/16 12/15/16 12/15/16 12:00 12:18 15:49 16:18 Temp 98.3 98.3 Pulse 87 93 Resp 22 20 B/P 154/75 160/69 Pulse Ox 97 95 O2 Delivery Room Air Room Air Room Air Room Air 12/15/16 12/15/16 12/15/16 12/15/16 17:58 19:00 19:43 20:00 Pulse 75 Resp 24 23 B/P 156/77 Pulse Ox 94 96 94 O2 Delivery Room Air Room Air Room Air Room Air 12/15/16 12/15/16 12/15/16 12/16/16 20:00 20:01 23:55 04:07 Temp 99.2 98.2 98.6 99.2 98.2 98.6 Pulse 73 73 Resp 22 20 B/P 136/73 119/78 Pulse Ox 95 96 O2 Delivery Room Air Room Air Room Air 12/16/16 12/16/16 12/16/16 07:02 08:02 08:02 Pulse 86 90 B/P 119/78 119/78 Pulse Ox 97 O2 Delivery Room Air Intake and Output 12/15/16 12/15/16 12/16/16 15:00 23:00 07:00 Intake Total 100 ml 1466 ml Output Total 1230 ml Balance 100 ml 236 ml ODIN ELLSWORTH MD Dec 16, 2016 11:10
[2016-12-16 12:00] VITALS: BP 145/79
[2016-12-16 15:30] VITALS: BP 128/83
[2016-12-16] MEDS: ACETAMINOPHEN 325 MG TABLET. PO PRN (15:42)
[2016-12-16 19:00] VITALS: BP 129/81
--- NOTE | 2016-12-16 21:17 | PDOC ---
Provider Note Provider Note Covering for Dr. Levine. He feels well and remains in sinus rhythm. Hisblood pressure today is 120/80. It was a bit higher yesterday. Klebsiella was grown in theblood cultures. A trans thoracic echocardiogram was unremarkable. Since the organism was Klebsiella I do not believe he needs a SAMM. Will discuss with Dr. Pardo but he has requested a colonoscopy. BOLA GLOVER MD Dec 16, 2016 21:17
[2016-12-16] MEDS: PANTOPRAZOLE 40 MG TABLET. PO SCH (21:40)
[2016-12-16] MEDS: ATORVASTATIN CALCIUM 10 MG TABLET. PO SCH (21:40)
[2016-12-16 23:00] VITALS: BP 140/86
[2016-12-17 03:00] VITALS: BP 144/85
[2016-12-17] MEDS: MEROPENEM 1 GM in IV NORMAL SALINE 100ML 100 ML IV SCH (05:57)
[2016-12-17 07:05] VITALS: BP 158/95
[2016-12-17] MEDS: BUDESONIDE 0.5 MG/2 ML NEBU NEB SCH ×2 (08:54→20:22)
[2016-12-17] MEDS: IPRATRPIUM/ALBUTEROL 0.5/2.5MG 3 ML NEBU. NEB SCH ×4 (08:54→20:21)
[2016-12-17] MEDS: ASPIRIN ENTERIC COATED 81 MG TABLET.DR. PO SCH (09:15)
[2016-12-17] MEDS: DILTIAZEM HCL 240 MG CAP.ER.24H PO SCH (09:15)
[2016-12-17] MEDS: LUBIPROSTONE 8 MCG CAPSULE PO SCH ×2 (09:15→17:24)
[2016-12-17] MEDS: CETIRIZINE HCL 10 MG TABLET PO SCH (09:15)
[2016-12-17] MEDS: CYANOCOBALAMIN (VITAMIN B-12) 1,000 MCG TABLET. PO SCH (09:15)
[2016-12-17] MEDS: LOSARTAN POTASSIUM 50 MG TABLET. PO SCH (09:16)
--- NOTE | 2016-12-17 09:21 | PDOC ---
Infectious Disease Note Subjective Subjective Some better yet.No pain and bowels working ROS ROS GEN: Denies fevers, chills, sweats HEENT: Denies blurred vision, sore throat CV: Denies chest pain RESP: Denies shortness of air, cough GI: Denies n/v/d NEURO: Denies confusion, dizziness MSK: Denies weakness, joint pain/swelling Vital Sign Vital Signs Vital Signs Date Time Temp Pulse Resp B/P Pulse Ox O2 Delivery O2 Flow Rate FiO2 12/17/16 08:53 93 Room Air 12/17/16 07:05 98.3 81 18 158/95 98.3 Physical Exam PHYSICAL EXAM GENERAL: NAD, Alert. Looks well HEENT: PERRL, OC/OP- clear NECK: Supple, no JVD, no LN LUNGS: Clear HEART: S1S2, no gallop, no murmur ABD: Soft, NT, no organomegaly, no rebound, Obese. 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 2 OF 2 SETS ANTIMICROBIAL SUSCEPTIBILITY Final Comment S = Susceptible; I = Intermediate; R = Resistant P = Positive; N = Negative MICS are expressed in micrograms per mL Antibiotic RSLT#1 RSLT#2 RSLT#3 RSLT#4 Amoxicillin/Clavulanic Acid S<=2 Ampicillin R>=32 Cefepime S<=1 Ceftriaxone S<=1 Cefuroxime S =2 Cephalothin S =4 Ciprofloxacin S<=0.25 Ertapenem S<=0.5 Gentamicin S<=1 Imipenem S<=1 Levofloxacin S<=0.12 Nitrofurantoin I =64 Piperacillin R =32 Tetracycline S<=1 Tobramycin S<=1 Trimethoprim/Sulfa S<=20 Performed at: [facility] Objective Assessment Klebsiella - sepsis -POA 12/12 Liver lesion - abscess s/p drain 12/14 - Klebsiella Fever - better Clinically he looks better Leukocytosis - better Afib -new Abd discomfort -better Plan Plan of Care Discont Meropenem begin Rocephin and po Flagyl (can d/c flagyl if anaerobes remain neg) Would probably benefit from Colonoscopy as urine is not the source Labs this am F/u cults/labs SARIAH YEE MD Dec 17, 2016 09:21
--- NOTE | 2016-12-17 09:51 | PDOC ---
PROGRESS NOTES Subjective Subjective Pt is feeling better today. Pt is up and walking around on his own. He is in good spirits. No had no new complaints today. Pt denied chest pain, SOB, diaphoresis, N, V. Objective Objective Vital Signs Date Time Temp Pulse Resp B/P Pulse Ox O2 Delivery O2 Flow Rate FiO2 12/17/16 09:16 81 158/95 12/17/16 08:53 93 Room Air 12/17/16 07:05 98.3 18 98.3 12/14/16 10:53 4.0 Intake and Output 12/17/16 07:00 Intake Total 220 ml Output Total 620 ml Balance -400 ml Intake Oral 120 ml IV Total 100 ml Output Urine Total 600 ml Drainage Total 20 ml # Voids 1 Physical Exam Physical Exam No change in cardiac exam. Assessment Assessment Problems Medical Problems: (1) Atrial fibrillation with RVR Status: Acute (2) Dehydration Status: Acute (3) FUO (fever of unknown origin) Status: Acute (4) Generalized weakness Status: Acute (5) Hypokalemia Status: Acute (6) Leukocytosis Status: Acute (7) Sepsis due to undetermined organism Status: Acute Plan Plan of Care Resolved A fib with RVR. Agree with increase in Cardizem No change in plan Stable from cardiac perspective Comment Review of Relevant I have reviewed the following items norma (where applicable) has been applied. Labs Laboratory Tests Test 12/16/16 05:20 White Blood Count 10.0x10^3/uL (4.0-11.0) Red Blood Count 3.29x10^6/uL (4.30-5.70) Hemoglobin 10.9g/dL (13.0-17.5) Hematocrit 31.1% (39.0-53.0) Mean Corpuscular Volume 95fL (79-100) Mean Corpuscular Hemoglobin 33pg (25-35) Mean Corpuscular Hemoglobin Concent 35g/dL (31-37) Red Cell Distribution Width 13.6% (11.5-14.5) Platelet Count 466x10^3/uL (140-400) Neutrophils (%) (Auto) 72% (31-73) Lymphocytes (%) (Auto) 13% (24-48) Monocytes (%) (Auto) 12% (0-9) Eosinophils (%) (Auto) 2% (0-3) Basophils (%) (Auto) 1% (0-3) Neutrophils # (Auto) 7.2x10^3uL (1.8-7.7) Lymphocytes # (Auto) 1.3x10^3/uL (1.0-4.8) Monocytes # (Auto) 1.2x10^3/uL (0.0-1.1) Eosinophils # (Auto) 0.2x10^3/uL (0.0-0.7) Basophils # (Auto) 0.1x10^3/uL (0.0-0.2) Sodium Level 138mmol/L (136-145) Potassium Level 3.5mmol/L (3.5-5.1) Chloride Level 102mmol/L (98-107) Carbon Dioxide Level 27mmol/L (21-32) Anion Gap 9 (6-14) Blood Urea Nitrogen 6mg/dL (8-26) Creatinine 0.8mg/dL (0.7-1.3) Estimated GFR (Cockcroft-Gault) 95.6 Glucose Level 104mg/dL (70-99) Calcium Level 8.3mg/dL (8.5-10.1) Microbiology 12/14/16 Blood Culture - Preliminary, Resulted NO GROWTH AFTER 2 DAYS 12/12/16 Throat Culture - Final, Complete 12/12/16 - Final, Complete 12/14/16 Anaerobic/Aerobic Culture - Preliminary, Resulted 12/14/16 Anaerobic Culture Result 1 (MARK) - Preliminary, Resulted 12/14/16 Aerobic Culture - Final, Resulted 12/14/16 Aerobic Culture Result 1 (MARK) - Final, Resulted 12/14/16 Antimicrobic Susceptibility - Final, Resulted Medications Current Medications Sodium Chloride (Iv Sodium Chloride 0.9% 1000ml Bag) 1,000 ml @ 1,000 mls/hr Q1H IV Last administered on 12/12/16t 15:55; Start 12/12/16 at 15:45; Stop at 16:44; Status DC Ondansetron HCl (Zofran) 4 mg 1X ONCE IV Last administered on 12/12/16t 15:58 ; Start 12/12/16 at 15:45; Stop 12/12/16 at 15:48; Status DC Ketorolac Tromethamine (Toradol) 30 mg 1X ONCE IV Last administered on 15:58; Start 12/12/16 at 15:45; Stop 12/12/16 at 15:48; Status DC Acetaminophen (Tylenol) 650 mg 1X ONCE PO Last administered on 12/12/16 16:02 ; Start 12/12/16 at 16:00; Stop 12/12/16 at 16:01; Status DC Ondansetron HCl 4 mg 4 mg PRN Q8HRS PRN IV NAUSEA/VOMITING; Start 12/12/16 at 17:30; Stop 12/13/16 at 17:29; Status DC Sodium Chloride (Iv Sodium Chloride 0.9% 1000ml Bag) 1,000 ml @ 125 mls/hr Q8H IV Last administered on 12/12/16 23:00; Start 12/12/16 at 17:45; Stop at 17:44; Status DC Acetaminophen (Tylenol) 650 mg PRN Q4HRS PRN PO FEVER; Start 12/12/16 at 17:30 ; Stop 12/13/16 at 17:29; Status DC Vancomycin HCl (Vanco Per Pharmacy) 1 each PRN DAILY PRN MC SEE COMMENTS Last administered on 12/12/16 19:56; Start 12/12/16 at 18:45; Stop 12/13/16 at 08:21 ; Status DC Piperacillin Sod/ Tazobactam Sod 1 each 1 each PRN DAILY PRN MC SEE COMMENTS; Start 12/12/16 at 18:45; Stop 12/13/16 at 08:23; Status DC Diltiazem HCl/ Dextrose (Cardizem) 125 ml @ 0 mls/hr CONT PRN IV SEE I/O RECORD Last administered on 12/13/16 05:54; Start 12/12/16 at 18:45; Stop 12/13 at 16:44; Status DC Diltiazem HCl 10 mg 10 mg 1X ONCE IVP Last administered on 12/12/16 18:38; Start 12/12/16 at 18:45; Stop 12/12/16 at 18:46; Status DC Vancomycin HCl 2 gm/Sodium Chloride 500 ml @ 250 mls/hr 1X ONCE IV Last administered on 12/12/16 19:26; Start 12/12/16 at 19:00; Stop 12/12/16 at 20:59 ; Status DC Piperacillin Sod/ Tazobactam Sod 3.375 gm/Sodium Chloride 50 ml @ 100 mls/hr 1X ONCE IV Last administered on 12/12/16 18:52; Start 12/12/16 at 19:00; Stop 12/12/16 at 19:29; Status DC Piperacillin Sod/ Tazobactam Sod/ Sodium Chloride (Zosyn/Iv Sodium Chloride 0.9 % 50ml) 50 ml @ 100 mls/hr Q6HRS IV Last administered on 12/13/16 05:48; Start 12/13/16 at 00:00; Stop 12/13/16 at 08:23; Status DC Diltiazem HCl 20 mg 20 mg 1X ONCE IVP Last administered on 12/12/16 19:15; Start 12/12/16 at 19:15; Stop 12/12/16 at 19:17; Status DC Sodium Chloride 3,060 ml @ 765 mls/hr Q4H IV Last administered on 12/12/16 21 :03; Start 12/12/16 at 19:30; Stop 12/12/16 at 23:29; Status DC Vancomycin HCl/ Sodium Chloride (Iv Sodium Chloride 0.9% 500ml Bag) 500 ml @ 250 mls/hr Q12H IV Last administered on 12/13/16 05:52; Start 12/13/16 at 07: 00; Stop 12/13/16 at 08:21; Status DC Vancomycin HCl 1 each 1X ONCE MC ; Start 12/14/16 at 06:30; Stop 12/14/16 at 06 :30; Status DC Digoxin (Lanoxin) 500 mcg 1X ONCE IV Last administered on 12/12/16 21:01; Start 12/12/16 at 21:00; Stop 12/12/16 at 21:01; Status DC Potassium Chloride (Klor-Con) 40 meq 1X ONCE PO Last administered on 21:41; Start 12/12/16 at 22:00; Stop 12/12/16 at 22:01; Status DC Pantoprazole Sodium (Protonix) 40 mg DAILYAC PO ; Start 12/13/16 at 07:30; Stop 12/13/16 at 07:30; Status DC Pantoprazole Sodium (Protonix) 40 mg HS PO Last administered on 12/16/16 21:40 ; Start 12/12/16 at 23:30 Aspirin (Ecotrin) 81 mg DAILY PO Last administered on 12/17/16 09:15; Start at 09:00 Cetirizine HCl (Zyrtec) 10 mg DAILY PO Last administered on 12/17/16 09:15; Start 12/13/16 at 09:00 Cyanocobalamin (Vitamin B-12) 1,000 mcg DAILY PO Last administered on 09:15; Start 12/13/16 at 09:00 Atorvastatin Calcium (Lipitor) 10 mg QHS PO Last administered on 12/16/16 21: 40; Start 12/13/16 at 21:00 Non-Formulary Medication 1 puff BID IH ; Start 12/13/16 at 09:00; Stop 12/13/16 at 09:00; Status DC Losartan Potassium (Cozaar) 50 mg DAILY PO Last administered on 12/17/16 09:16 ; Start 12/13/16 at 09:00 Hydrochlorothiazide (Microzide) 12.5 mg DAILY PO Last administered on 10:02; Start 12/13/16 at 09:00; Stop 12/14/16 at 08:45; Status DC Albuterol/ Ipratropium (Duoneb) 3 ml RTQID NEB Last administered on 12/17/16 08:54; Start 12/13/16 at 08:30 Budesonide 0.5 mg 0.5 mg RTBID NEB Last administered on 12/17/16 08:54; Start 12/13/16 at 08:30 Meropenem/Sodium Chloride (Merrem/Iv Sodium Chloride 0.9% 100ml) 100 ml @ 200 mls/hr Q8HRS IV Last administered on 12/17/16 05:57; Start 12/13/16 at 08:30; Stop 12/17/16 at 09:20; Status DC Iohexol (Omnipaque 240 Mg/ml) 30 ml 1X ONCE PO Last administered on 12/13/16 09:15; Start 12/13/16 at 09:15; Stop 12/13/16 at 09:16; Status DC Iohexol (Omnipaque 300 Mg/ml) 75 ml 1X ONCE IV Last administered on 12/13/16 10:34; Start 12/13/16 at 09:15; Stop 12/13/16 at 09:16; Status DC Info 1 each 1 each PRN DAILY PRN MC SEE COMMENTS; Start 12/13/16 at 09:15; Stop 12/15/16 at 09:14; Status DC Sodium Chloride 500 ml @ 500 mls/hr 1X ONCE IV Last administered on 12:00; Start 12/13/16 at 12:00; Stop 12/13/16 at 12:59; Status DC Sodium Chloride (Iv Sodium Chloride 0.9% 1000ml Bag) 1,000 ml @ 150 mls/hr 1X ONCE IV Last administered on 12/13/16 12:00; Start 12/13/16 at 12:00; Stop at 18:39; Status DC Zolpidem Tartrate (Ambien) 5 mg PRN QHS PRN PO INSOMNIA, MAY REPEAT IN 1HR Last administered on 12/13/16 22:14; Start 12/13/16 at 16:45; Stop 12/14/16 at 08:45; Status DC Bisacodyl (Dulcolax Tab) 10 mg PRN DAILY PRN PO CONSTIPATION Last administered on 12/17/16 06:02; Start 12/13/16 at 16:45 Lubiprostone (Amitiza) 8 mcg BIDWMEALS PO Last administered on 12/17/16 09:15 ; Start 12/13/16 at 17:00 Diltiazem HCl (Cardizem 24hr Cd) 180 mg 1X ONCE PO Last administered on 17:32; Start 12/13/16 at 16:45; Stop 12/13/16 at 16:48; Status DC Diltiazem HCl (Cardizem 24hr Cd) 180 mg DAILY PO Last administered on 08:02; Start 12/14/16 at 09:00; Stop 12/16/16 at 08:51; Status DC Guaifenesin (Robitussin Dm) 10 ml PRN Q4HRS PRN PO COUGH Last administered on 11:58; Start 12/13/16 at 19:45; Stop 12/14/16 at 16:00; Status DC Guaifenesin/ Codeine Phosphate (Robitussin Ac) 5 ml PRN Q4HRS PRN PO COUGH; Start 12/13/16 at 19:45 Guaifenesin/ Codeine Phosphate (Robitussin Ac) 10 ml PRN Q4HRS PRN PO COUGH; Start 12/13/16 at 19:45 Potassium Chloride (Klor-Con) 20 meq 1X ONCE PO Last administered on 09:29; Start 12/14/16 at 08:45; Stop 12/14/16 at 08:47; Status DC Lidocaine/Sodium Bicarbonate (Buffered Lidocaine 1%) 20 ml 1X ONCE IJ Last administered on 12/14/16 10:51; Start 12/14/16 at 10:15; Stop 12/14/16 at 10:18 ; Status DC Midazolam HCl (Versed) 2 mg 1X ONCE IV Last administered on 12/14/16 10:51; Start 12/14/16 at 10:15; Stop 12/14/16 at 10:18; Status DC Fentanyl Citrate (Fentanyl 2ml Vial) 100 mcg 1X ONCE IV Last administered on 10:52; Start 12/14/16 at 10:15; Stop 12/14/16 at 10:18; Status DC Flumazenil (Romazicon) 0.5 mg STK-MED ONCE IV ; Start 12/14/16 at 10:08; Stop at 10:17; Status DC Naloxone HCl (Narcan) 0.4 mg STK-MED ONCE .ROUTE ; Start 12/14/16 at 10:08; Stop 12/14/16 at 10:17; Status DC Acetaminophen/ Hydrocodone Bitart (Lortab 7.5/325) 1 tab PRN Q4HRS PRN PO MODERATE - SEVERE PAIN Last administered on 12/15/16 17:58; Start 12/14/16 at 15:00 Acetaminophen (Tylenol) 650 mg PRN Q6HRS PRN PO MILD PAIN / TEMP Last administered on 12/16/16 15:42; Start 12/14/16 at 15:45 Diltiazem HCl (Cardizem 24hr Cd) 240 mg DAILY PO Last administered on 09:15; Start 12/16/16 at 09:00 Diltiazem HCl 30 mg 30 mg BID PO Last administered on 12/16/16t 21:40; Start at 09:30; Stop 12/16/16 at 21:01; Status DC Ceftriaxone Sodium/Sodium Chloride (Rocephin/Iv Sodium Chloride 0.9% 100ml) 100 ml @ 200 mls/hr Q24H IV ; Start 12/17/16 at 10:00 Metronidazole (Flagyl) 500 mg Q12HR PO ; Start 12/17/16 at 10:00 Active Scripts Active Reported Vitamin B-12 (Cyanocobalamin (Vitamin B-12)) 1,000 Mcg Tablet 1 Tab PO DAILY All Day Allergy (Cetirizine Hcl) 10 Mg Tablet 10 Mg PO Advair 250-50 Diskus (Fluticasone/Salmeterol) 1 Each Disk.w.dev 1 Puff IH BID Omeprazole 20 Mg Capsule. 20 Mg PO BID Simvastatin 20 Mg Tablet 1 Tab PO QHS Valsartan-Hctz 80-12.5 Mg Tab (Valsartan/Hydrochlorothiazide) 1 Each Tablet 1 Each PO DAILY Aspir 81 (Aspirin) 81 Mg Tablet. 1 Tab PO DAILY Vitals/I & O Vital Sign - Last 24 Hours 12/16/16 12/16/16 12/16/16 12/16/16 11:04 12:00 15:30 16:00 Temp 98.4 99.0 98.4 99.0 Pulse 89 88 Resp 18 B/P 145/79 128/83 Pulse Ox 97 94 95 O2 Delivery Room Air Room Air Room Air Room Air 12/16/16 12/16/16 12/16/16 12/16/16 19:00 19:29 19:29 21:40 Temp 98.3 98.3 Pulse 75 88 Resp 18 B/P 129/81 128/83 Pulse Ox 94 97 97 O2 Delivery Room Air Room Air 12/16/16 12/16/16 12/17/16 12/17/16 23:00 23:00 03:00 07:05 Temp 98.2 98.2 98.0 98.3 98.2 98.2 98.0 98.3 Pulse 75 72 81 Resp 18 16 18 B/P 140/86 144/85 158/95 Pulse Ox 94 93 95 O2 Delivery Room Air 12/17/16 12/17/16 12/17/16 08:53 09:15 09:16 Pulse 81 81 B/P 158/95 158/95 Pulse Ox 93 O2 Delivery Room Air Intake and Output 12/16/16 12/16/16 12/17/16 15:00 23:00 07:00 Intake Total 100 ml 120 ml Output Total 620 ml Balance 100 ml -500 ml ODIN ELLSWORTH MD Dec 17, 2016 09:51
[2016-12-17 10:40] VITALS: BP 130/87
[2016-12-17] MEDS: METRONIDAZOLE 500 MG TABLET. PO SCH ×2 (13:02→20:13)
[2016-12-17] MEDS: CEFTRIAXONE SODIUM 2 GM in IV NORMAL SALINE 100ML 100 ML IV SCH (13:02)
[2016-12-17 15:00] VITALS: BP 125/81
--- NOTE | 2016-12-17 19:01 | PDOC ---
PROGRESS NOTES Subjective Subjective Tolerating meds, drain in liver with less drainage, up and about without any cardiac symptoms, bowels moving Objective Objective Vital Signs Date Time Temp Pulse Resp B/P Pulse Ox O2 Delivery O2 Flow Rate FiO2 12/17/16 17:00 98 Room Air 12/17/16 15:00 97.7 75 16 125/81 97.7 12/17/16 08:10 4.0 Intake and Output 12/17/16 07:00 Intake Total 220 ml Output Total 620 ml Balance -400 ml Intake Oral 120 ml IV Total 100 ml Output Urine Total 600 ml Drainage Total 20 ml # Voids 1 Physical Exam Abdomen: Normal bowel sounds Heart: Regular rate Extremities: No clubbing, No cyanosis, Other (1+ edema of feet) General: Alert, Oriented X3, Cooperative HEENT: Atraumatic Lungs: Clear to auscultation MUSCULOSKELETAL: No joint tenderness Neck: Supple Neuro: Normal speech Psych/Mental Status: Mental status NL Skin: No breakdown Assessment Assessment Problems Medical Problems: (1) Atrial fibrillation with RVR Status: Acute (2) Dehydration Status: Acute (3) FUO (fever of unknown origin) Status: Acute (4) Generalized weakness Status: Acute (5) Hypokalemia Status: Acute (6) Leukocytosis Status: Acute (7) Sepsis due to undetermined organism Status: Acute Plan Plan of Care (1) Atrial fibrillation with RVR - converted with diltiazem, does increased yesterday to 240 mg from 180 mg (2) Dehydration-resolved with IVF, off HCTZ which was part of DiovanHCT of home meds but may need to resume HCTZ for edema Status: Acute (3) Sepsis, Klebsiella pneumoniae -patient afebrile past 48 hrs since liver abscess drained, liver biopsy confirmed abscess with same organism, he now has a pigtail catheter in his liver with 30 cc drainage overnight, on Meropenem Status: Acute (4) Generalized weakness, much improved, -encouraged ambulation Status: Acute (5) Hypokalemia-replaced Status: Acute (6) Leukocytosis- resolved (7) Sepsis due to Klebsiella pneumonia - ID change to Rocephin and Flagyl, anaerobic culture still pending Status: Acute (8) Liver lesion-biopsy = abscess, drain in place (9) COPD, continue neb treatments, resume Advair after discharge Status: Acute Comment Review of Relevant I have reviewed the following items norma (where applicable) has been applied. Labs Laboratory Tests Test 12/16/16 05:20 White Blood Count 10.0x10^3/uL (4.0-11.0) Red Blood Count 3.29x10^6/uL (4.30-5.70) Hemoglobin 10.9g/dL (13.0-17.5) Hematocrit 31.1% (39.0-53.0) Mean Corpuscular Volume 95fL (79-100) Mean Corpuscular Hemoglobin 33pg (25-35) Mean Corpuscular Hemoglobin Concent 35g/dL (31-37) Red Cell Distribution Width 13.6% (11.5-14.5) Platelet Count 466x10^3/uL (140-400) Neutrophils (%) (Auto) 72% (31-73) Lymphocytes (%) (Auto) 13% (24-48) Monocytes (%) (Auto) 12% (0-9) Eosinophils (%) (Auto) 2% (0-3) Basophils (%) (Auto) 1% (0-3) Neutrophils # (Auto) 7.2x10^3uL (1.8-7.7) Lymphocytes # (Auto) 1.3x10^3/uL (1.0-4.8) Monocytes # (Auto) 1.2x10^3/uL (0.0-1.1) Eosinophils # (Auto) 0.2x10^3/uL (0.0-0.7) Basophils # (Auto) 0.1x10^3/uL (0.0-0.2) Sodium Level 138mmol/L (136-145) Potassium Level 3.5mmol/L (3.5-5.1) Chloride Level 102mmol/L (98-107) Carbon Dioxide Level 27mmol/L (21-32) Anion Gap 9 (6-14) Blood Urea Nitrogen 6mg/dL (8-26) Creatinine 0.8mg/dL (0.7-1.3) Estimated GFR (Cockcroft-Gault) 95.6 Glucose Level 104mg/dL (70-99) Calcium Level 8.3mg/dL (8.5-10.1) Microbiology 12/14/16 Blood Culture - Preliminary, Resulted NO GROWTH AFTER 3 DAYS 12/12/16 Throat Culture - Final, Complete 12/12/16 - Final, Complete 12/14/16 Anaerobic/Aerobic Culture - Preliminary, Resulted 12/14/16 Anaerobic Culture Result 1 (MARK) - Preliminary, Resulted 12/14/16 Aerobic Culture - Final, Resulted 12/14/16 Aerobic Culture Result 1 (MARK) - Final, Resulted 12/14/16 Antimicrobic Susceptibility - Final, Resulted Medications Current Medications Sodium Chloride (Iv Sodium Chloride 0.9% 1000ml Bag) 1,000 ml @ 1,000 mls/hr Q1H IV Last administered on 12/12/16 15:55; Start 12/12/16 at 15:45; Stop at 16:44; Status DC Ondansetron HCl (Zofran) 4 mg 1X ONCE IV Last administered on 12/12/16 15:58 ; Start 12/12/16 at 15:45; Stop 12/12/16 at 15:48; Status DC Ketorolac Tromethamine (Toradol) 30 mg 1X ONCE IV Last administered on 15:58; Start 12/12/16 at 15:45; Stop 12/12/16 at 15:48; Status DC Acetaminophen (Tylenol) 650 mg 1X ONCE PO Last administered on 12/12/16 16:02 ; Start 12/12/16 at 16:00; Stop 12/12/16 at 16:01; Status DC Ondansetron HCl 4 mg 4 mg PRN Q8HRS PRN IV NAUSEA/VOMITING; Start 12/12/16 at 17:30; Stop 12/13/16 at 17:29; Status DC Sodium Chloride (Iv Sodium Chloride 0.9% 1000ml Bag) 1,000 ml @ 125 mls/hr Q8H IV Last administered on 12/12/16 23:00; Start 12/12/16 at 17:45; Stop at 17:44; Status DC Acetaminophen (Tylenol) 650 mg PRN Q4HRS PRN PO FEVER; Start 12/12/16 at 17:30 ; Stop 12/13/16 at 17:29; Status DC Vancomycin HCl (Vanco Per Pharmacy) 1 each PRN DAILY PRN MC SEE COMMENTS Last administered on 12/12/16 19:56; Start 12/12/16 at 18:45; Stop 12/13/16 at 08:21 ; Status DC Piperacillin Sod/ Tazobactam Sod 1 each 1 each PRN DAILY PRN MC SEE COMMENTS; Start 12/12/16 at 18:45; Stop 12/13/16 at 08:23; Status DC Diltiazem HCl/ Dextrose (Cardizem) 125 ml @ 0 mls/hr CONT PRN IV SEE I/O RECORD Last administered on 12/13/16 05:54; Start 12/12/16 at 18:45; Stop 12/13 at 16:44; Status DC Diltiazem HCl 10 mg 10 mg 1X ONCE IVP Last administered on 12/12/16 18:38; Start 12/12/16 at 18:45; Stop 12/12/16 at 18:46; Status DC Vancomycin HCl 2 gm/Sodium Chloride 500 ml @ 250 mls/hr 1X ONCE IV Last administered on 12/12/16 19:26; Start 12/12/16 at 19:00; Stop 12/12/16 at 20:59 ; Status DC Piperacillin Sod/ Tazobactam Sod 3.375 gm/Sodium Chloride 50 ml @ 100 mls/hr 1X ONCE IV Last administered on 12/12/16 18:52; Start 12/12/16 at 19:00; Stop 12/12/16 at 19:29; Status DC Piperacillin Sod/ Tazobactam Sod/ Sodium Chloride (Zosyn/Iv Sodium Chloride 0.9 % 50ml) 50 ml @ 100 mls/hr Q6HRS IV Last administered on 12/13/16 05:48; Start 12/13/16 at 00:00; Stop 12/13/16 at 08:23; Status DC Diltiazem HCl 20 mg 20 mg 1X ONCE IVP Last administered on 12/12/16 19:15; Start 12/12/16 at 19:15; Stop 12/12/16 at 19:17; Status DC Sodium Chloride 3,060 ml @ 765 mls/hr Q4H IV Last administered on 12/12/16 21 :03; Start 12/12/16 at 19:30; Stop 12/12/16 at 23:29; Status DC Vancomycin HCl/ Sodium Chloride (Iv Sodium Chloride 0.9% 500ml Bag) 500 ml @ 250 mls/hr Q12H IV Last administered on 12/13/16 05:52; Start 12/13/16 at 07: 00; Stop 12/13/16 at 08:21; Status DC Vancomycin HCl 1 each 1X ONCE MC ; Start 12/14/16 at 06:30; Stop 12/14/16 at 06 :30; Status DC Digoxin (Lanoxin) 500 mcg 1X ONCE IV Last administered on 12/12/16 21:01; Start 12/12/16 at 21:00; Stop 12/12/16 at 21:01; Status DC Potassium Chloride (Klor-Con) 40 meq 1X ONCE PO Last administered on 21:41; Start 12/12/16 at 22:00; Stop 12/12/16 at 22:01; Status DC Pantoprazole Sodium (Protonix) 40 mg DAILYAC PO ; Start 12/13/16 at 07:30; Stop 12/13/16 at 07:30; Status DC Pantoprazole Sodium (Protonix) 40 mg HS PO Last administered on 12/16/16 21:40 ; Start 12/12/16 at 23:30 Aspirin (Ecotrin) 81 mg DAILY PO Last administered on 12/17/16 09:15; Start at 09:00 Cetirizine HCl (Zyrtec) 10 mg DAILY PO Last administered on 12/17/16 09:15; Start 12/13/16 at 09:00 Cyanocobalamin (Vitamin B-12) 1,000 mcg DAILY PO Last administered on 09:15; Start 12/13/16 at 09:00 Atorvastatin Calcium (Lipitor) 10 mg QHS PO Last administered on 12/16/16 21: 40; Start 12/13/16 at 21:00 Non-Formulary Medication 1 puff BID IH ; Start 12/13/16 at 09:00; Stop 12/13/16 at 09:00; Status DC Losartan Potassium (Cozaar) 50 mg DAILY PO Last administered on 12/17/16 09:16 ; Start 12/13/16 at 09:00 Hydrochlorothiazide (Microzide) 12.5 mg DAILY PO Last administered on 10:02; Start 12/13/16 at 09:00; Stop 12/14/16 at 08:45; Status DC Albuterol/ Ipratropium (Duoneb) 3 ml RTQID NEB Last administered on 12/17/16 16:58; Start 12/13/16 at 08:30 Budesonide 0.5 mg 0.5 mg RTBID NEB Last administered on 12/17/16 08:54; Start 12/13/16 at 08:30 Meropenem/Sodium Chloride (Merrem/Iv Sodium Chloride 0.9% 100ml) 100 ml @ 200 mls/hr Q8HRS IV Last administered on 12/17/16 05:57; Start 12/13/16 at 08:30; Stop 12/17/16 at 09:20; Status DC Iohexol (Omnipaque 240 Mg/ml) 30 ml 1X ONCE PO Last administered on 12/13/16 09:15; Start 12/13/16 at 09:15; Stop 12/13/16 at 09:16; Status DC Iohexol (Omnipaque 300 Mg/ml) 75 ml 1X ONCE IV Last administered on 12/13/16 10:34; Start 12/13/16 at 09:15; Stop 12/13/16 at 09:16; Status DC Info 1 each 1 each PRN DAILY PRN MC SEE COMMENTS; Start 12/13/16 at 09:15; Stop 12/15/16 at 09:14; Status DC Sodium Chloride 500 ml @ 500 mls/hr 1X ONCE IV Last administered on 12:00; Start 12/13/16 at 12:00; Stop 12/13/16 at 12:59; Status DC Sodium Chloride (Iv Sodium Chloride 0.9% 1000ml Bag) 1,000 ml @ 150 mls/hr 1X ONCE IV Last administered on 12/13/16 12:00; Start 12/13/16 at 12:00; Stop at 18:39; Status DC Zolpidem Tartrate (Ambien) 5 mg PRN QHS PRN PO INSOMNIA, MAY REPEAT IN 1HR Last administered on 12/13/16 22:14; Start 12/13/16 at 16:45; Stop 12/14/16 at 08:45; Status DC Bisacodyl (Dulcolax Tab) 10 mg PRN DAILY PRN PO CONSTIPATION Last administered on 12/17/16 06:02; Start 12/13/16 at 16:45 Lubiprostone (Amitiza) 8 mcg BIDWMEALS PO Last administered on 12/17/16 17:24 ; Start 12/13/16 at 17:00 Diltiazem HCl (Cardizem 24hr Cd) 180 mg 1X ONCE PO Last administered on 17:32; Start 12/13/16 at 16:45; Stop 12/13/16 at 16:48; Status DC Diltiazem HCl (Cardizem 24hr Cd) 180 mg DAILY PO Last administered on 08:02; Start 12/14/16 at 09:00; Stop 12/16/16 at 08:51; Status DC Guaifenesin (Robitussin Dm) 10 ml PRN Q4HRS PRN PO COUGH Last administered on 11:58; Start 12/13/16 at 19:45; Stop 12/14/16 at 16:00; Status DC Guaifenesin/ Codeine Phosphate (Robitussin Ac) 5 ml PRN Q4HRS PRN PO COUGH; Start 12/13/16 at 19:45 Guaifenesin/ Codeine Phosphate (Robitussin Ac) 10 ml PRN Q4HRS PRN PO COUGH; Start 12/13/16 at 19:45 Potassium Chloride (Klor-Con) 20 meq 1X ONCE PO Last administered on 09:29; Start 12/14/16 at 08:45; Stop 12/14/16 at 08:47; Status DC Lidocaine/Sodium Bicarbonate (Buffered Lidocaine 1%) 20 ml 1X ONCE IJ Last administered on 12/14/16 10:51; Start 12/14/16 at 10:15; Stop 12/14/16 at 10:18 ; Status DC Midazolam HCl (Versed) 2 mg 1X ONCE IV Last administered on 12/14/16 10:51; Start 12/14/16 at 10:15; Stop 12/14/16 at 10:18; Status DC Fentanyl Citrate (Fentanyl 2ml Vial) 100 mcg 1X ONCE IV Last administered on 10:52; Start 12/14/16 at 10:15; Stop 12/14/16 at 10:18; Status DC Flumazenil (Romazicon) 0.5 mg STK-MED ONCE IV ; Start 12/14/16 at 10:08; Stop at 10:17; Status DC Naloxone HCl (Narcan) 0.4 mg STK-MED ONCE .ROUTE ; Start 12/14/16 at 10:08; Stop 12/14/16 at 10:17; Status DC Acetaminophen/ Hydrocodone Bitart (Lortab 7.5/325) 1 tab PRN Q4HRS PRN PO MODERATE - SEVERE PAIN Last administered on 12/15/16 17:58; Start 12/14/16 at 15:00 Acetaminophen (Tylenol) 650 mg PRN Q6HRS PRN PO MILD PAIN / TEMP Last administered on 12/16/16 15:42; Start 12/14/16 at 15:45 Diltiazem HCl (Cardizem 24hr Cd) 240 mg DAILY PO Last administered on 09:15; Start 12/16/16 at 09:00 Diltiazem HCl 30 mg 30 mg BID PO Last administered on 12/16/16 21:40; Start at 09:30; Stop 12/16/16 at 21:01; Status DC Ceftriaxone Sodium/Sodium Chloride (Rocephin/Iv Sodium Chloride 0.9% 100ml) 100 ml @ 200 mls/hr Q24H IV Last administered on 12/17/16 13:02; Start 12/17/16 at 10:00 Metronidazole (Flagyl) 500 mg Q12HR PO Last administered on 12/17/16 13:02; Start 12/17/16 at 10:00 Active Scripts Active Reported Vitamin B-12 (Cyanocobalamin (Vitamin B-12)) 1,000 Mcg Tablet 1 Tab PO DAILY All Day Allergy (Cetirizine Hcl) 10 Mg Tablet 10 Mg PO Advair 250-50 Diskus (Fluticasone/Salmeterol) 1 Each Disk.w.dev 1 Puff IH BID Omeprazole 20 Mg Capsule. 20 Mg PO BID Simvastatin 20 Mg Tablet 1 Tab PO QHS Valsartan-Hctz 80-12.5 Mg Tab (Valsartan/Hydrochlorothiazide) 1 Each Tablet 1 Each PO DAILY Aspir 81 (Aspirin) 81 Mg Tablet. 1 Tab PO DAILY Vitals/I & O Vital Sign - Last 24 Hours 12/16/16 12/16/16 12/16/16 12/16/16 19:00 19:29 19:29 21:40 Temp 98.3 98.3 Pulse 75 88 Resp 18 B/P 129/81 128/83 Pulse Ox 94 97 97 O2 Delivery Room Air Room Air 12/16/16 12/16/16 12/17/16 12/17/16 23:00 23:00 03:00 07:05 Temp 98.2 98.2 98.0 98.3 98.2 98.2 98.0 98.3 Pulse 75 72 81 Resp 18 16 18 B/P 140/86 144/85 158/95 Pulse Ox 94 93 95 O2 Delivery Room Air 12/17/16 12/17/16 12/17/16 12/17/16 08:10 08:53 09:15 09:16 Pulse 81 81 B/P 158/95 158/95 Pulse Ox 93 O2 Delivery Room Air Room Air O2 Flow Rate 4.0 12/17/16 12/17/16 12/17/16 12/17/16 10:40 11:58 15:00 17:00 Temp 98.2 97.7 98.2 97.7 Pulse 80 75 Resp 20 16 B/P 130/87 125/81 Pulse Ox 93 98 93 98 O2 Delivery Room Air Room Air Room Air Room Air Intake and Output 12/16/16 12/16/16 12/17/16 15:00 23:00 07:00 Intake Total 100 ml 120 ml Output Total 620 ml Balance 100 ml -500 ml Benigno WAKEFIELD MD Dec 17, 2016 19:01
[2016-12-17 19:34] VITALS: BP 141/90
[2016-12-17] MEDS: ATORVASTATIN CALCIUM 10 MG TABLET. PO SCH (20:13)
[2016-12-17] MEDS: PANTOPRAZOLE 40 MG TABLET. PO SCH (20:13)
[2016-12-17 23:59] VITALS: BP 146/90
[2016-12-18 03:59] VITALS: BP 143/86
[2016-12-18 07:00] VITALS: BP 148/93
[2016-12-18] MEDS: IPRATRPIUM/ALBUTEROL 0.5/2.5MG 3 ML NEBU. NEB SCH ×4 (08:56→20:04)
[2016-12-18] MEDS: BUDESONIDE 0.5 MG/2 ML NEBU NEB SCH ×2 (08:57→20:04)
[2016-12-18] MEDS: CEFTRIAXONE SODIUM 2 GM in IV NORMAL SALINE 100ML 100 ML IV SCH (09:13)
[2016-12-18] MEDS: LUBIPROSTONE 8 MCG CAPSULE PO SCH ×2 (09:13→16:38)
[2016-12-18] MEDS: CETIRIZINE HCL 10 MG TABLET PO SCH (09:14)
[2016-12-18] MEDS: ASPIRIN ENTERIC COATED 81 MG TABLET.DR. PO SCH (09:14)
[2016-12-18] MEDS: DILTIAZEM HCL 240 MG CAP.ER.24H PO SCH (09:14)
[2016-12-18] MEDS: LOSARTAN POTASSIUM 50 MG TABLET. PO SCH (09:14)
[2016-12-18] MEDS: METRONIDAZOLE 500 MG TABLET. PO SCH ×2 (09:14→20:32)
[2016-12-18] MEDS: CYANOCOBALAMIN (VITAMIN B-12) 1,000 MCG TABLET. PO SCH (09:14)
[2016-12-18 11:00] VITALS: BP 147/88
--- NOTE | 2016-12-18 13:34 | PDOC ---
Infectious Disease Note Subjective Subjective some chills and sweats last night, bettr today No fever Appetite improved, eating Small bout of diarrhea earlier ROS ROS CV: Denies chest pain RESP: Denies shortness of air, cough GI: Denies n/v Vital Sign Vital Signs Vital Signs Date Time Temp Pulse Resp B/P Pulse Ox O2 Delivery O2 Flow Rate FiO2 12/18/16 12:06 98 Room Air 12/18/16 11:00 97.6 74 20 147/88 97.6 12/17/16 08:10 4.0 Physical Exam PHYSICAL EXAM GENERAL: up in the chair, relaxed appearance LUNGS: Clear HEART: S1S2, no gallop, no murmur ABD: Soft, NT, LUCIO intact, sanguinous drainage EXT: BLE edema, 1+ PLANT ASSOCIATE: Alert, oriented x 3, no focal neurologic deficit SKIN: No rash IV: ok Labs Micro 12/14 BLOOD CULTURE Preliminary NO GROWTH AFTER 3 DAYS Objective Assessment Klebsiella - sepsis -POA 12/12 Liver lesion - abscess s/p drain 12/14 - Klebsiella Fever - better Clinically he looks better Leukocytosis - better Afib -new Abd discomfort -better Plan Plan of Care Rocephin and po Flagyl (can d/c flagyl if anaerobes remain neg) Would probably benefit from Colonoscopy as urine is not the source F/u cults/labs Patient seen and examined. Chart reviewed in detail. Case discussed with WINDOWS PHONE DEVELOPER. Agree with above plan. WAYLON GARZA APRN Dec 18, 2016 13:34 ULISSES ARCEO MD Dec 18, 2016 14:43
[2016-12-18 15:00] VITALS: BP 134/83
--- NOTE | 2016-12-18 15:07 | PDOC ---
PROGRESS NOTES Subjective Subjective Patient without complaint, denies pain. Objective Objective Vital Signs Date Time Temp Pulse Resp B/P Pulse Ox O2 Delivery O2 Flow Rate FiO2 12/18/16 12:06 98 Room Air 12/18/16 11:00 97.6 74 20 147/88 97.6 12/17/16 08:10 4.0 Intake and Output 12/18/16 07:00 Intake Total 1400 ml Output Total 455 ml Balance 945 ml Intake Oral 1400 ml Output Urine Total 450 ml Drainage Total 5 ml Physical Exam Abdomen: Normal bowel sounds, Soft, No tenderness Heart: Regular rate Extremities: No edema General: Alert, Oriented X3, No acute distress Lungs: Clear to auscultation Assessment Assessment Problems Medical Problems: (1) Atrial fibrillation with RVR Status: Acute (2) Dehydration Status: Acute (3) FUO (fever of unknown origin) Status: Acute (4) Generalized weakness Status: Acute (5) Hypokalemia Status: Acute (6) Leukocytosis Status: Acute (7) Sepsis due to undetermined organism Status: Acute Plan Plan of Care 1. Hepatic abscess - improving, continue Rocephin and Flagyl. 2. afib with RVR - resolved, patient in sinus rhythm. Continue present meds. 3. HTN - controlled with present meds. 4. COPD - stable, nebs prn. Comment Review of Relevant I have reviewed the following items norma (where applicable) has been applied. Labs Microbiology 12/14/16 Blood Culture - Preliminary, Resulted NO GROWTH AFTER 3 DAYS 12/12/16 Throat Culture - Final, Complete 12/12/16 - Final, Complete 12/14/16 Anaerobic/Aerobic Culture - Preliminary, Resulted 12/14/16 Anaerobic Culture Result 1 (MARK) - Preliminary, Resulted 12/14/16 Aerobic Culture - Final, Resulted 12/14/16 Aerobic Culture Result 1 (MARK) - Final, Resulted 12/14/16 Antimicrobic Susceptibility - Final, Resulted Medications Current Medications Sodium Chloride (Iv Sodium Chloride 0.9% 1000ml Bag) 1,000 ml @ 1,000 mls/hr Q1H IV Last administered on 12/12/16 15:55; Start 12/12/16 at 15:45; Stop at 16:44; Status DC Ondansetron HCl (Zofran) 4 mg 1X ONCE IV Last administered on 12/12/16 15:58 ; Start 12/12/16 at 15:45; Stop 12/12/16 at 15:48; Status DC Ketorolac Tromethamine (Toradol) 30 mg 1X ONCE IV Last administered on 15:58; Start 12/12/16 at 15:45; Stop 12/12/16 at 15:48; Status DC Acetaminophen (Tylenol) 650 mg 1X ONCE PO Last administered on 12/12/16 16:02 ; Start 12/12/16 at 16:00; Stop 12/12/16 at 16:01; Status DC Ondansetron HCl 4 mg 4 mg PRN Q8HRS PRN IV NAUSEA/VOMITING; Start 12/12/16 at 17:30; Stop 12/13/16 at 17:29; Status DC Sodium Chloride (Iv Sodium Chloride 0.9% 1000ml Bag) 1,000 ml @ 125 mls/hr Q8H IV Last administered on 12/12/16 23:00; Start 12/12/16 at 17:45; Stop at 17:44; Status DC Acetaminophen (Tylenol) 650 mg PRN Q4HRS PRN PO FEVER; Start 12/12/16 at 17:30 ; Stop 12/13/16 at 17:29; Status DC Vancomycin HCl (Vanco Per Pharmacy) 1 each PRN DAILY PRN MC SEE COMMENTS Last administered on 12/12/16 19:56; Start 12/12/16 at 18:45; Stop 12/13/16 at 08:21 ; Status DC Piperacillin Sod/ Tazobactam Sod 1 each 1 each PRN DAILY PRN MC SEE COMMENTS; Start 12/12/16 at 18:45; Stop 12/13/16 at 08:23; Status DC Diltiazem HCl/ Dextrose (Cardizem) 125 ml @ 0 mls/hr CONT PRN IV SEE I/O RECORD Last administered on 12/13/16 05:54; Start 12/12/16 at 18:45; Stop 12/13 at 16:44; Status DC Diltiazem HCl 10 mg 10 mg 1X ONCE IVP Last administered on 12/12/16 18:38; Start 12/12/16 at 18:45; Stop 12/12/16 at 18:46; Status DC Vancomycin HCl 2 gm/Sodium Chloride 500 ml @ 250 mls/hr 1X ONCE IV Last administered on 12/12/16 19:26; Start 12/12/16 at 19:00; Stop 12/12/16 at 20:59 ; Status DC Piperacillin Sod/ Tazobactam Sod 3.375 gm/Sodium Chloride 50 ml @ 100 mls/hr 1X ONCE IV Last administered on 12/12/16 18:52; Start 12/12/16 at 19:00; Stop 12/12/16 at 19:29; Status DC Piperacillin Sod/ Tazobactam Sod/ Sodium Chloride (Zosyn/Iv Sodium Chloride 0.9 % 50ml) 50 ml @ 100 mls/hr Q6HRS IV Last administered on 12/13/16 05:48; Start 12/13/16 at 00:00; Stop 12/13/16 at 08:23; Status DC Diltiazem HCl 20 mg 20 mg 1X ONCE IVP Last administered on 12/12/16 19:15; Start 12/12/16 at 19:15; Stop 12/12/16 at 19:17; Status DC Sodium Chloride 3,060 ml @ 765 mls/hr Q4H IV Last administered on 12/12/16 21 :03; Start 12/12/16 at 19:30; Stop 12/12/16 at 23:29; Status DC Vancomycin HCl/ Sodium Chloride (Iv Sodium Chloride 0.9% 500ml Bag) 500 ml @ 250 mls/hr Q12H IV Last administered on 12/13/16 05:52; Start 12/13/16 at 07: 00; Stop 12/13/16 at 08:21; Status DC Vancomycin HCl 1 each 1X ONCE MC ; Start 12/14/16 at 06:30; Stop 12/14/16 at 06 :30; Status DC Digoxin (Lanoxin) 500 mcg 1X ONCE IV Last administered on 12/12/16 21:01; Start 12/12/16 at 21:00; Stop 12/12/16 at 21:01; Status DC Potassium Chloride (Klor-Con) 40 meq 1X ONCE PO Last administered on 21:41; Start 12/12/16 at 22:00; Stop 12/12/16 at 22:01; Status DC Pantoprazole Sodium (Protonix) 40 mg DAILYAC PO ; Start 12/13/16 at 07:30; Stop 12/13/16 at 07:30; Status DC Pantoprazole Sodium (Protonix) 40 mg HS PO Last administered on 12/17/16 20:13 ; Start 12/12/16 at 23:30 Aspirin (Ecotrin) 81 mg DAILY PO Last administered on 12/18/16 09:14; Start at 09:00 Cetirizine HCl (Zyrtec) 10 mg DAILY PO Last administered on 12/18/16 09:14; Start 12/13/16 at 09:00 Cyanocobalamin (Vitamin B-12) 1,000 mcg DAILY PO Last administered on 09:14; Start 12/13/16 at 09:00 Atorvastatin Calcium (Lipitor) 10 mg QHS PO Last administered on 12/17/16 20: 13; Start 12/13/16 at 21:00 Non-Formulary Medication 1 puff BID IH ; Start 12/13/16 at 09:00; Stop 12/13/16 at 09:00; Status DC Losartan Potassium (Cozaar) 50 mg DAILY PO Last administered on 12/18/16 09:14 ; Start 12/13/16 at 09:00 Hydrochlorothiazide (Microzide) 12.5 mg DAILY PO Last administered on 10:02; Start 12/13/16 at 09:00; Stop 12/14/16 at 08:45; Status DC Albuterol/ Ipratropium (Duoneb) 3 ml RTQID NEB Last administered on 12/18/16 12:01; Start 12/13/16 at 08:30 Budesonide 0.5 mg 0.5 mg RTBID NEB Last administered on 12/18/16 08:57; Start 12/13/16 at 08:30 Meropenem/Sodium Chloride (Merrem/Iv Sodium Chloride 0.9% 100ml) 100 ml @ 200 mls/hr Q8HRS IV Last administered on 12/17/16 05:57; Start 12/13/16 at 08:30; Stop 12/17/16 at 09:20; Status DC Iohexol (Omnipaque 240 Mg/ml) 30 ml 1X ONCE PO Last administered on 12/13/16 09:15; Start 12/13/16 at 09:15; Stop 12/13/16 at 09:16; Status DC Iohexol (Omnipaque 300 Mg/ml) 75 ml 1X ONCE IV Last administered on 12/13/16 10:34; Start 12/13/16 at 09:15; Stop 12/13/16 at 09:16; Status DC Info 1 each 1 each PRN DAILY PRN MC SEE COMMENTS; Start 12/13/16 at 09:15; Stop 12/15/16 at 09:14; Status DC Sodium Chloride 500 ml @ 500 mls/hr 1X ONCE IV Last administered on 12:00; Start 12/13/16 at 12:00; Stop 12/13/16 at 12:59; Status DC Sodium Chloride (Iv Sodium Chloride 0.9% 1000ml Bag) 1,000 ml @ 150 mls/hr 1X ONCE IV Last administered on 12/13/16 12:00; Start 12/13/16 at 12:00; Stop at 18:39; Status DC Zolpidem Tartrate (Ambien) 5 mg PRN QHS PRN PO INSOMNIA, MAY REPEAT IN 1HR Last administered on 12/13/16 22:14; Start 12/13/16 at 16:45; Stop 12/14/16 at 08:45; Status DC Bisacodyl (Dulcolax Tab) 10 mg PRN DAILY PRN PO CONSTIPATION Last administered on 12/17/16 06:02; Start 12/13/16 at 16:45 Lubiprostone (Amitiza) 8 mcg BIDWMEALS PO Last administered on 12/17/16 17:24 ; Start 12/13/16 at 17:00 Diltiazem HCl (Cardizem 24hr Cd) 180 mg 1X ONCE PO Last administered on 17:32; Start 12/13/16 at 16:45; Stop 12/13/16 at 16:48; Status DC Diltiazem HCl (Cardizem 24hr Cd) 180 mg DAILY PO Last administered on 08:02; Start 12/14/16 at 09:00; Stop 12/16/16 at 08:51; Status DC Guaifenesin (Robitussin Dm) 10 ml PRN Q4HRS PRN PO COUGH Last administered on 11:58; Start 12/13/16 at 19:45; Stop 12/14/16 at 16:00; Status DC Guaifenesin/ Codeine Phosphate (Robitussin Ac) 5 ml PRN Q4HRS PRN PO COUGH; Start 12/13/16 at 19:45 Guaifenesin/ Codeine Phosphate (Robitussin Ac) 10 ml PRN Q4HRS PRN PO COUGH; Start 12/13/16 at 19:45 Potassium Chloride (Klor-Con) 20 meq 1X ONCE PO Last administered on 09:29; Start 12/14/16 at 08:45; Stop 12/14/16 at 08:47; Status DC Lidocaine/Sodium Bicarbonate (Buffered Lidocaine 1%) 20 ml 1X ONCE IJ Last administered on 12/14/16 10:51; Start 12/14/16 at 10:15; Stop 12/14/16 at 10:18 ; Status DC Midazolam HCl (Versed) 2 mg 1X ONCE IV Last administered on 12/14/16 10:51; Start 12/14/16 at 10:15; Stop 12/14/16 at 10:18; Status DC Fentanyl Citrate (Fentanyl 2ml Vial) 100 mcg 1X ONCE IV Last administered on 10:52; Start 12/14/16 at 10:15; Stop 12/14/16 at 10:18; Status DC Flumazenil (Romazicon) 0.5 mg STK-MED ONCE IV ; Start 12/14/16 at 10:08; Stop at 10:17; Status DC Naloxone HCl (Narcan) 0.4 mg STK-MED ONCE .ROUTE ; Start 12/14/16 at 10:08; Stop 12/14/16 at 10:17; Status DC Acetaminophen/ Hydrocodone Bitart (Lortab 7.5/325) 1 tab PRN Q4HRS PRN PO MODERATE - SEVERE PAIN Last administered on 12/15/16 17:58; Start 12/14/16 at 15:00 Acetaminophen (Tylenol) 650 mg PRN Q6HRS PRN PO MILD PAIN / TEMP Last administered on 12/16/16 15:42; Start 12/14/16 at 15:45 Diltiazem HCl (Cardizem 24hr Cd) 240 mg DAILY PO Last administered on 09:14; Start 12/16/16 at 09:00 Diltiazem HCl 30 mg 30 mg BID PO Last administered on 12/16/16 21:40; Start at 09:30; Stop 12/16/16 at 21:01; Status DC Ceftriaxone Sodium/Sodium Chloride (Rocephin/Iv Sodium Chloride 0.9% 100ml) 100 ml @ 200 mls/hr Q24H IV Last administered on 12/18/16 09:13; Start 12/17/16 at 10:00 Metronidazole (Flagyl) 500 mg Q12HR PO Last administered on 12/18/16 09:14; Start 12/17/16 at 10:00 Active Scripts Active Reported Vitamin B-12 (Cyanocobalamin (Vitamin B-12)) 1,000 Mcg Tablet 1 Tab PO DAILY All Day Allergy (Cetirizine Hcl) 10 Mg Tablet 10 Mg PO Advair 250-50 Diskus (Fluticasone/Salmeterol) 1 Each Disk.w.dev 1 Puff IH BID Omeprazole 20 Mg Capsule. 20 Mg PO BID Simvastatin 20 Mg Tablet 1 Tab PO QHS Valsartan-Hctz 80-12.5 Mg Tab (Valsartan/Hydrochlorothiazide) 1 Each Tablet 1 Each PO DAILY Aspir 81 (Aspirin) 81 Mg Tablet. 1 Tab PO DAILY Vitals/I & O Vital Sign - Last 24 Hours 12/17/16 12/17/16 12/17/16 12/17/16 17:00 19:34 20:10 20:24 Temp 98.6 98.6 Pulse 79 Resp 18 B/P 141/90 Pulse Ox 98 93 98 O2 Delivery Room Air BiPAP/CPAP Room Air Room Air 12/17/16 12/17/16 12/18/16 12/18/16 20:25 23:59 03:59 07:00 Temp 98.3 97.6 98.5 98.3 97.6 98.5 Pulse 75 69 77 Resp 18 18 20 B/P 146/90 143/86 148/93 Pulse Ox 98 96 97 92 O2 Delivery Room Air BiPAP/CPAP BiPAP/CPAP Room Air 12/18/16 12/18/16 12/18/16 12/18/16 08:21 08:57 08:58 09:14 Pulse 77 B/P 148/93 Pulse Ox 97 97 O2 Delivery Room Air Room Air Room Air 12/18/16 12/18/16 12/18/16 09:14 11:00 12:06 Temp 97.6 97.6 Pulse 77 74 Resp 20 B/P 148/93 147/88 Pulse Ox 99 98 O2 Delivery Room Air Room Air Intake and Output 12/17/16 12/17/16 12/18/16 15:00 23:00 07:00 Intake Total 500 ml 720 ml 180 ml Output Total 455 ml Balance 500 ml 265 ml 180 ml CHIDI QUINTERO MD Dec 18, 2016 15:07
--- NOTE | 2016-12-18 15:55 | PDOC ---
PROGRESS NOTES Subjective Subjective No cardiac complaints today Afebrile Objective Objective Vital Signs Date Time Temp Pulse Resp B/P Pulse Ox O2 Delivery O2 Flow Rate FiO2 12/18/16 15:00 97.7 78 20 134/83 97 Room Air 97.7 12/17/16 08:10 4.0 Intake and Output 12/18/16 07:00 Intake Total 1400 ml Output Total 455 ml Balance 945 ml Intake Oral 1400 ml Output Urine Total 450 ml Drainage Total 5 ml Physical Exam Physical Exam No changes in cardiac exam Assessment Assessment Pt slowly improving. Agree with present plan Problems Medical Problems: (1) Atrial fibrillation with RVR Status: Acute (2) Dehydration Status: Acute (3) FUO (fever of unknown origin) Status: Acute (4) Generalized weakness Status: Acute (5) Hypokalemia Status: Acute (6) Leukocytosis Status: Acute (7) Sepsis due to undetermined organism Status: Acute Comment Review of Relevant I have reviewed the following items norma (where applicable) has been applied. Labs Microbiology 12/14/16 Blood Culture - Preliminary, Resulted NO GROWTH AFTER 3 DAYS 12/12/16 Throat Culture - Final, Complete 12/12/16 - Final, Complete 12/14/16 Anaerobic/Aerobic Culture - Preliminary, Resulted 12/14/16 Anaerobic Culture Result 1 (MARK) - Preliminary, Resulted 12/14/16 Aerobic Culture - Final, Resulted 12/14/16 Aerobic Culture Result 1 (MARK) - Final, Resulted 12/14/16 Antimicrobic Susceptibility - Final, Resulted Medications Current Medications Sodium Chloride (Iv Sodium Chloride 0.9% 1000ml Bag) 1,000 ml @ 1,000 mls/hr Q1H IV Last administered on 12/12/16 15:55; Start 12/12/16 at 15:45; Stop at 16:44; Status DC Ondansetron HCl (Zofran) 4 mg 1X ONCE IV Last administered on 12/12/16 15:58 ; Start 12/12/16 at 15:45; Stop 12/12/16 at 15:48; Status DC Ketorolac Tromethamine (Toradol) 30 mg 1X ONCE IV Last administered on 15:58; Start 12/12/16 at 15:45; Stop 12/12/16 at 15:48; Status DC Acetaminophen (Tylenol) 650 mg 1X ONCE PO Last administered on 12/12/16 16:02 ; Start 12/12/16 at 16:00; Stop 12/12/16 at 16:01; Status DC Ondansetron HCl 4 mg 4 mg PRN Q8HRS PRN IV NAUSEA/VOMITING; Start 12/12/16 at 17:30; Stop 12/13/16 at 17:29; Status DC Sodium Chloride (Iv Sodium Chloride 0.9% 1000ml Bag) 1,000 ml @ 125 mls/hr Q8H IV Last administered on 12/12/16 23:00; Start 12/12/16 at 17:45; Stop at 17:44; Status DC Acetaminophen (Tylenol) 650 mg PRN Q4HRS PRN PO FEVER; Start 12/12/16 at 17:30 ; Stop 12/13/16 at 17:29; Status DC Vancomycin HCl (Vanco Per Pharmacy) 1 each PRN DAILY PRN MC SEE COMMENTS Last administered on 12/12/16 19:56; Start 12/12/16 at 18:45; Stop 12/13/16 at 08:21 ; Status DC Piperacillin Sod/ Tazobactam Sod 1 each 1 each PRN DAILY PRN MC SEE COMMENTS; Start 12/12/16 at 18:45; Stop 12/13/16 at 08:23; Status DC Diltiazem HCl/ Dextrose (Cardizem) 125 ml @ 0 mls/hr CONT PRN IV SEE I/O RECORD Last administered on 12/13/16 05:54; Start 12/12/16 at 18:45; Stop 12/13 at 16:44; Status DC Diltiazem HCl 10 mg 10 mg 1X ONCE IVP Last administered on 12/12/16 18:38; Start 12/12/16 at 18:45; Stop 12/12/16 at 18:46; Status DC Vancomycin HCl 2 gm/Sodium Chloride 500 ml @ 250 mls/hr 1X ONCE IV Last administered on 12/12/16 19:26; Start 12/12/16 at 19:00; Stop 12/12/16 at 20:59 ; Status DC Piperacillin Sod/ Tazobactam Sod 3.375 gm/Sodium Chloride 50 ml @ 100 mls/hr 1X ONCE IV Last administered on 2/19/17at 18:52; Start 12/12/16 at 19:00; Stop 12/12/16 at 19:29; Status DC Piperacillin Sod/ Tazobactam Sod/ Sodium Chloride (Zosyn/Iv Sodium Chloride 0.9 % 50ml) 50 ml @ 100 mls/hr Q6HRS IV Last administered on 12/13/16 05:48; Start 12/13/16 at 00:00; Stop 12/13/16 at 08:23; Status DC Diltiazem HCl 20 mg 20 mg 1X ONCE IVP Last administered on 12/12/16 19:15; Start 12/12/16 at 19:15; Stop 12/12/16 at 19:17; Status DC Sodium Chloride 3,060 ml @ 765 mls/hr Q4H IV Last administered on 12/12/16 21 :03; Start 12/12/16 at 19:30; Stop 12/12/16 at 23:29; Status DC Vancomycin HCl/ Sodium Chloride (Iv Sodium Chloride 0.9% 500ml Bag) 500 ml @ 250 mls/hr Q12H IV Last administered on 12/13/16 05:52; Start 12/13/16 at 07: 00; Stop 12/13/16 at 08:21; Status DC Vancomycin HCl 1 each 1X ONCE MC ; Start 12/14/16 at 06:30; Stop 12/14/16 at 06 :30; Status DC Digoxin (Lanoxin) 500 mcg 1X ONCE IV Last administered on 12/12/16 21:01; Start 12/12/16 at 21:00; Stop 12/12/16 at 21:01; Status DC Potassium Chloride (Klor-Con) 40 meq 1X ONCE PO Last administered on 21:41; Start 12/12/16 at 22:00; Stop 12/12/16 at 22:01; Status DC Pantoprazole Sodium (Protonix) 40 mg DAILYAC PO ; Start 12/13/16 at 07:30; Stop 12/13/16 at 07:30; Status DC Pantoprazole Sodium (Protonix) 40 mg HS PO Last administered on 12/17/16 20:13 ; Start 12/12/16 at 23:30 Aspirin (Ecotrin) 81 mg DAILY PO Last administered on 12/18/16 09:14; Start at 09:00 Cetirizine HCl (Zyrtec) 10 mg DAILY PO Last administered on 12/18/16 09:14; Start 12/13/16 at 09:00 Cyanocobalamin (Vitamin B-12) 1,000 mcg DAILY PO Last administered on 09:14; Start 12/13/16 at 09:00 Atorvastatin Calcium (Lipitor) 10 mg QHS PO Last administered on 12/17/16 20: 13; Start 12/13/16 at 21:00 Non-Formulary Medication 1 puff BID IH ; Start 12/13/16 at 09:00; Stop 12/13/16 at 09:00; Status DC Losartan Potassium (Cozaar) 50 mg DAILY PO Last administered on 12/18/16 09:14 ; Start 12/13/16 at 09:00 Hydrochlorothiazide (Microzide) 12.5 mg DAILY PO Last administered on 10:02; Start 12/13/16 at 09:00; Stop 12/14/16 at 08:45; Status DC Albuterol/ Ipratropium (Duoneb) 3 ml RTQID NEB Last administered on 12/18/16 12:01; Start 12/13/16 at 08:30 Budesonide 0.5 mg 0.5 mg RTBID NEB Last administered on 12/18/16 08:57; Start 12/13/16 at 08:30 Meropenem/Sodium Chloride (Merrem/Iv Sodium Chloride 0.9% 100ml) 100 ml @ 200 mls/hr Q8HRS IV Last administered on 12/17/16 05:57; Start 12/13/16 at 08:30; Stop 12/17/16 at 09:20; Status DC Iohexol (Omnipaque 240 Mg/ml) 30 ml 1X ONCE PO Last administered on 12/13/16 09:15; Start 12/13/16 at 09:15; Stop 12/13/16 at 09:16; Status DC Iohexol (Omnipaque 300 Mg/ml) 75 ml 1X ONCE IV Last administered on 12/13/16 10:34; Start 12/13/16 at 09:15; Stop 12/13/16 at 09:16; Status DC Info 1 each 1 each PRN DAILY PRN MC SEE COMMENTS; Start 12/13/16 at 09:15; Stop 12/15/16 at 09:14; Status DC Sodium Chloride 500 ml @ 500 mls/hr 1X ONCE IV Last administered on 12:00; Start 12/13/16 at 12:00; Stop 12/13/16 at 12:59; Status DC Sodium Chloride (Iv Sodium Chloride 0.9% 1000ml Bag) 1,000 ml @ 150 mls/hr 1X ONCE IV Last administered on 12/13/16 12:00; Start 12/13/16 at 12:00; Stop at 18:39; Status DC Zolpidem Tartrate (Ambien) 5 mg PRN QHS PRN PO INSOMNIA, MAY REPEAT IN 1HR Last administered on 12/13/16 22:14; Start 12/13/16 at 16:45; Stop 12/14/16 at 08:45; Status DC Bisacodyl (Dulcolax Tab) 10 mg PRN DAILY PRN PO CONSTIPATION Last administered on 12/17/16 06:02; Start 12/13/16 at 16:45 Lubiprostone (Amitiza) 8 mcg BIDWMEALS PO Last administered on 12/17/16 17:24 ; Start 12/13/16 at 17:00 Diltiazem HCl (Cardizem 24hr Cd) 180 mg 1X ONCE PO Last administered on 17:32; Start 12/13/16 at 16:45; Stop 12/13/16 at 16:48; Status DC Diltiazem HCl (Cardizem 24hr Cd) 180 mg DAILY PO Last administered on 08:02; Start 12/14/16 at 09:00; Stop 12/16/16 at 08:51; Status DC Guaifenesin (Robitussin Dm) 10 ml PRN Q4HRS PRN PO COUGH Last administered on 11:58; Start 12/13/16 at 19:45; Stop 12/14/16 at 16:00; Status DC Guaifenesin/ Codeine Phosphate (Robitussin Ac) 5 ml PRN Q4HRS PRN PO COUGH; Start 12/13/16 at 19:45 Guaifenesin/ Codeine Phosphate (Robitussin Ac) 10 ml PRN Q4HRS PRN PO COUGH; Start 12/13/16 at 19:45 Potassium Chloride (Klor-Con) 20 meq 1X ONCE PO Last administered on 09:29; Start 12/14/16 at 08:45; Stop 12/14/16 at 08:47; Status DC Lidocaine/Sodium Bicarbonate (Buffered Lidocaine 1%) 20 ml 1X ONCE IJ Last administered on 12/14/16 10:51; Start 12/14/16 at 10:15; Stop 12/14/16 at 10:18 ; Status DC Midazolam HCl (Versed) 2 mg 1X ONCE IV Last administered on 12/14/16 10:51; Start 12/14/16 at 10:15; Stop 12/14/16 at 10:18; Status DC Fentanyl Citrate (Fentanyl 2ml Vial) 100 mcg 1X ONCE IV Last administered on 10:52; Start 12/14/16 at 10:15; Stop 12/14/16 at 10:18; Status DC Flumazenil (Romazicon) 0.5 mg STK-MED ONCE IV ; Start 12/14/16 at 10:08; Stop at 10:17; Status DC Naloxone HCl (Narcan) 0.4 mg STK-MED ONCE .ROUTE ; Start 12/14/16 at 10:08; Stop 12/14/16 at 10:17; Status DC Acetaminophen/ Hydrocodone Bitart (Lortab 7.5/325) 1 tab PRN Q4HRS PRN PO MODERATE - SEVERE PAIN Last administered on 12/15/16 17:58; Start 12/14/16 at 15:00 Acetaminophen (Tylenol) 650 mg PRN Q6HRS PRN PO MILD PAIN / TEMP Last administered on 12/16/16 15:42; Start 12/14/16 at 15:45 Diltiazem HCl (Cardizem 24hr Cd) 240 mg DAILY PO Last administered on 09:14; Start 12/16/16 at 09:00 Diltiazem HCl 30 mg 30 mg BID PO Last administered on 12/16/16 21:40; Start at 09:30; Stop 12/16/16 at 21:01; Status DC Ceftriaxone Sodium/Sodium Chloride (Rocephin/Iv Sodium Chloride 0.9% 100ml) 100 ml @ 200 mls/hr Q24H IV Last administered on 12/18/16 09:13; Start 12/17/16 at 10:00 Metronidazole (Flagyl) 500 mg Q12HR PO Last administered on 12/18/16 09:14; Start 12/17/16 at 10:00 Active Scripts Active Reported Vitamin B-12 (Cyanocobalamin (Vitamin B-12)) 1,000 Mcg Tablet 1 Tab PO DAILY All Day Allergy (Cetirizine Hcl) 10 Mg Tablet 10 Mg PO Advair 250-50 Diskus (Fluticasone/Salmeterol) 1 Each Disk.w.dev 1 Puff IH BID Omeprazole 20 Mg Capsule. 20 Mg PO BID Simvastatin 20 Mg Tablet 1 Tab PO QHS Valsartan-Hctz 80-12.5 Mg Tab (Valsartan/Hydrochlorothiazide) 1 Each Tablet 1 Each PO DAILY Aspir 81 (Aspirin) 81 Mg Tablet. 1 Tab PO DAILY Vitals/I & O Vital Sign - Last 24 Hours 12/17/16 12/17/16 12/17/16 12/17/16 17:00 19:34 20:10 20:24 Temp 98.6 98.6 Pulse 79 Resp 18 B/P 141/90 Pulse Ox 98 93 98 O2 Delivery Room Air BiPAP/CPAP Room Air Room Air 12/17/16 12/17/16 12/18/16 12/18/16 20:25 23:59 03:59 07:00 Temp 98.3 97.6 98.5 98.3 97.6 98.5 Pulse 75 69 77 Resp 18 18 20 B/P 146/90 143/86 148/93 Pulse Ox 98 96 97 92 O2 Delivery Room Air BiPAP/CPAP BiPAP/CPAP Room Air 12/18/16 12/18/16 12/18/16 12/18/16 08:21 08:57 08:58 09:14 Pulse 77 B/P 148/93 Pulse Ox 97 97 O2 Delivery Room Air Room Air Room Air 12/18/16 12/18/16 12/18/16 12/18/16 09:14 11:00 12:06 15:00 Temp 97.6 97.7 97.6 97.7 Pulse 77 74 78 Resp 20 20 B/P 148/93 147/88 134/83 Pulse Ox 99 98 97 O2 Delivery Room Air Room Air Room Air Intake and Output 12/17/16 12/17/16 12/18/16 15:00 23:00 07:00 Intake Total 500 ml 720 ml 180 ml Output Total 455 ml Balance 500 ml 265 ml 180 ml ODIN ELLSWORTH MD Dec 18, 2016 15:55
[2016-12-18 19:00] VITALS: BP 130/79
[2016-12-18] MEDS: ATORVASTATIN CALCIUM 10 MG TABLET. PO SCH (20:32)
[2016-12-18] MEDS: PANTOPRAZOLE 40 MG TABLET. PO SCH (20:32)
[2016-12-18 23:00] VITALS: BP 125/85
[2016-12-19 03:00] VITALS: BP 142/87
[2016-12-19 07:00] VITALS: BP 137/87
[2016-12-19] MEDS: IPRATRPIUM/ALBUTEROL 0.5/2.5MG 3 ML NEBU. NEB SCH ×4 (07:32→19:37)
[2016-12-19] MEDS: BUDESONIDE 0.5 MG/2 ML NEBU NEB SCH ×2 (07:32→19:37)
[2016-12-19] MEDS: LUBIPROSTONE 8 MCG CAPSULE PO SCH ×2 (09:31→16:25)
[2016-12-19] MEDS: DILTIAZEM HCL 240 MG CAP.ER.24H PO SCH (09:32)
[2016-12-19] MEDS: LOSARTAN POTASSIUM 50 MG TABLET. PO SCH (09:32)
[2016-12-19] MEDS: CYANOCOBALAMIN (VITAMIN B-12) 1,000 MCG TABLET. PO SCH (09:33)
[2016-12-19] MEDS: METRONIDAZOLE 500 MG TABLET. PO SCH ×2 (09:33→20:48)
[2016-12-19] MEDS: CETIRIZINE HCL 10 MG TABLET PO SCH (09:33)
[2016-12-19] MEDS: ASPIRIN ENTERIC COATED 81 MG TABLET.DR. PO SCH ×2 (09:34→14:59)
[2016-12-19] MEDS: CEFTRIAXONE SODIUM 2 GM in IV NORMAL SALINE 100ML 100 ML IV SCH (10:36)
[2016-12-19 11:00] VITALS: BP 138/87
--- NOTE | 2016-12-19 11:43 | PDOC ---
Infectious Disease Note Subjective Subjective Comfortable, denies pain Appetite improved, eating No further diarrhea ROS ROS GEN: Denies fevers, chills, sweats HEENT: Denies sore throat CV: Denies chest pain RESP: Denies shortness of air, cough GI: Denies n/v Vital Sign Vital Signs Vital Signs Date Time Temp Pulse Resp B/P Pulse Ox O2 Delivery O2 Flow Rate FiO2 12/19/16 11:31 Room Air 12/19/16 11:00 98.1 64 20 138/87 96 98.1 12/18/16 20:00 4.0 Physical Exam PHYSICAL EXAM GENERAL: up in the chair, relaxed appearance LUNGS: Clear HEART: S1S2, no gallop, no murmur ABD: Soft, NT, LUCIO intact, sanguinous drainage EXT: BLE edema, 1+ [employer] STRATEGIST: Alert, oriented x 3, no focal neurologic deficit SKIN: No rash IV: ok Labs Micro 12/14 BLOOD CULTURE Preliminary NO GROWTH AFTER 4 DAYS Liver fluid ANAEROBIC RES 1 Preliminary No anaerobic growth in 72 hours. AEROBIC RES 1 Final Klebsiella pneumoniae Objective Assessment Klebsiella - sepsis -POA 12/12 Liver lesion - abscess s/p drain 12/14 - Klebsiella Fever - better Clinically he looks better Leukocytosis - better Afib -new Abd discomfort -better Plan Plan of Care Rocephin and po Flagyl (can d/c flagyl if anaerobes remain neg) Would probably benefit from Colonoscopy as urine is not the source CBC in am f/u cultures. Patient seen and examined. Chart reviewed. Case discussed with [employer]. Agree with above plan WAYLON GARZA APRN Dec 19, 2016 11:43 ULISSES ARCEO MD Dec 19, 2016 17:30
--- NOTE | 2016-12-19 13:06 | PDOC ---
PROGRESS NOTES Subjective Subjective Patient without complaint. Objective Objective Vital Signs Date Time Temp Pulse Resp B/P Pulse Ox O2 Delivery O2 Flow Rate FiO2 12/19/16 11:31 Room Air 12/19/16 11:00 98.1 64 20 138/87 96 98.1 12/18/16 20:00 4.0 Intake and Output 12/19/16 07:00 Intake Total 1520 ml Output Total 20 ml Balance 1500 ml Intake Oral 1520 ml Drainage Total 20 ml # Voids 8 # Bowel Movements 1 Physical Exam Abdomen: Normal bowel sounds, Soft, No tenderness Heart: Regular rate Extremities: No edema General: Alert, Oriented X3, No acute distress Lungs: Other (BS decreased throughout but otherwise CTA) Assessment Assessment Problems Medical Problems: (1) Atrial fibrillation with RVR Status: Acute (2) Dehydration Status: Acute (3) FUO (fever of unknown origin) Status: Acute (4) Generalized weakness Status: Acute (5) Hypokalemia Status: Acute (6) Leukocytosis Status: Acute (7) Sepsis due to undetermined organism Status: Acute Plan Plan of Care 1. Hepatic abscess - stable, still having some drainage, continue Rocephin and Flagyl per ID. 2. COPD - stable, continue nebs. 3. HTN - controlled, continue present meds. 4. afib - resolved, remains in sinus. Comment Review of Relevant I have reviewed the following items norma (where applicable) has been applied. Labs Microbiology 12/14/16 Blood Culture - Preliminary, Resulted NO GROWTH AFTER 4 DAYS 12/12/16 Throat Culture - Final, Complete 12/12/16 - Final, Complete 12/14/16 Anaerobic/Aerobic Culture - Preliminary, Resulted 12/14/16 Anaerobic Culture Result 1 (MARK) - Preliminary, Resulted 12/14/16 Aerobic Culture - Final, Resulted 12/14/16 Aerobic Culture Result 1 (MARK) - Final, Resulted 12/14/16 Antimicrobic Susceptibility - Final, Resulted Medications Current Medications Sodium Chloride (Iv Sodium Chloride 0.9% 1000ml Bag) 1,000 ml @ 1,000 mls/hr Q1H IV Last administered on 12/12/16 15:55; Start 12/12/16 at 15:45; Stop at 16:44; Status DC Ondansetron HCl (Zofran) 4 mg 1X ONCE IV Last administered on 12/12/16 15:58 ; Start 12/12/16 at 15:45; Stop 12/12/16 at 15:48; Status DC Ketorolac Tromethamine (Toradol) 30 mg 1X ONCE IV Last administered on 15:58; Start 12/12/16 at 15:45; Stop 12/12/16 at 15:48; Status DC Acetaminophen (Tylenol) 650 mg 1X ONCE PO Last administered on 12/12/16 16:02 ; Start 12/12/16 at 16:00; Stop 12/12/16 at 16:01; Status DC Ondansetron HCl 4 mg 4 mg PRN Q8HRS PRN IV NAUSEA/VOMITING; Start 12/12/16 at 17:30; Stop 12/13/16 at 17:29; Status DC Sodium Chloride (Iv Sodium Chloride 0.9% 1000ml Bag) 1,000 ml @ 125 mls/hr Q8H IV Last administered on 12/12/16 23:00; Start 12/12/16 at 17:45; Stop at 17:44; Status DC Acetaminophen (Tylenol) 650 mg PRN Q4HRS PRN PO FEVER; Start 12/12/16 at 17:30 ; Stop 12/13/16 at 17:29; Status DC Vancomycin HCl (Vanco Per Pharmacy) 1 each PRN DAILY PRN MC SEE COMMENTS Last administered on 12/12/16 19:56; Start 12/12/16 at 18:45; Stop 12/13/16 at 08:21 ; Status DC Piperacillin Sod/ Tazobactam Sod 1 each 1 each PRN DAILY PRN MC SEE COMMENTS; Start 12/12/16 at 18:45; Stop 12/13/16 at 08:23; Status DC Diltiazem HCl/ Dextrose (Cardizem) 125 ml @ 0 mls/hr CONT PRN IV SEE I/O RECORD Last administered on 12/13/16 05:54; Start 12/12/16 at 18:45; Stop 12/13 at 16:44; Status DC Diltiazem HCl 10 mg 10 mg 1X ONCE IVP Last administered on 12/12/16 18:38; Start 12/12/16 at 18:45; Stop 12/12/16 at 18:46; Status DC Vancomycin HCl 2 gm/Sodium Chloride 500 ml @ 250 mls/hr 1X ONCE IV Last administered on 12/12/16 19:26; Start 12/12/16 at 19:00; Stop 12/12/16 at 20:59 ; Status DC Piperacillin Sod/ Tazobactam Sod 3.375 gm/Sodium Chloride 50 ml @ 100 mls/hr 1X ONCE IV Last administered on 12/12/16 18:52; Start 12/12/16 at 19:00; Stop 12/12/16 at 19:29; Status DC Piperacillin Sod/ Tazobactam Sod/ Sodium Chloride (Zosyn/Iv Sodium Chloride 0.9 % 50ml) 50 ml @ 100 mls/hr Q6HRS IV Last administered on 12/13/16 05:48; Start 12/13/16 at 00:00; Stop 12/13/16 at 08:23; Status DC Diltiazem HCl 20 mg 20 mg 1X ONCE IVP Last administered on 12/12/16 19:15; Start 12/12/16 at 19:15; Stop 12/12/16 at 19:17; Status DC Sodium Chloride 3,060 ml @ 765 mls/hr Q4H IV Last administered on 12/12/16 21 :03; Start 12/12/16 at 19:30; Stop 12/12/16 at 23:29; Status DC Vancomycin HCl/ Sodium Chloride (Iv Sodium Chloride 0.9% 500ml Bag) 500 ml @ 250 mls/hr Q12H IV Last administered on 12/13/16 05:52; Start 12/13/16 at 07: 00; Stop 12/13/16 at 08:21; Status DC Vancomycin HCl 1 each 1X ONCE MC ; Start 12/14/16 at 06:30; Stop 12/14/16 at 06 :30; Status DC Digoxin (Lanoxin) 500 mcg 1X ONCE IV Last administered on 12/12/16 21:01; Start 12/12/16 at 21:00; Stop 12/12/16 at 21:01; Status DC Potassium Chloride (Klor-Con) 40 meq 1X ONCE PO Last administered on 21:41; Start 12/12/16 at 22:00; Stop 12/12/16 at 22:01; Status DC Pantoprazole Sodium (Protonix) 40 mg DAILYAC PO ; Start 12/13/16 at 07:30; Stop 12/13/16 at 07:30; Status DC Pantoprazole Sodium (Protonix) 40 mg HS PO Last administered on 12/18/16 20:32 ; Start 12/12/16 at 23:30 Aspirin (Ecotrin) 81 mg DAILY PO Last administered on 12/18/16 09:14; Start at 09:00 Cetirizine HCl (Zyrtec) 10 mg DAILY PO Last administered on 12/19/16 09:33; Start 12/13/16 at 09:00 Cyanocobalamin (Vitamin B-12) 1,000 mcg DAILY PO Last administered on 09:33; Start 12/13/16 at 09:00 Atorvastatin Calcium (Lipitor) 10 mg QHS PO Last administered on 12/18/16 20: 32; Start 12/13/16 at 21:00 Non-Formulary Medication 1 puff BID IH ; Start 12/13/16 at 09:00; Stop 12/13/16 at 09:00; Status DC Losartan Potassium (Cozaar) 50 mg DAILY PO Last administered on 12/19/16 09:32 ; Start 12/13/16 at 09:00 Hydrochlorothiazide (Microzide) 12.5 mg DAILY PO Last administered on 10:02; Start 12/13/16 at 09:00; Stop 12/14/16 at 08:45; Status DC Albuterol/ Ipratropium (Duoneb) 3 ml RTQID NEB Last administered on 12/19/16 11:30; Start 12/13/16 at 08:30 Budesonide 0.5 mg 0.5 mg RTBID NEB Last administered on 12/19/16 07:32; Start 12/13/16 at 08:30 Meropenem/Sodium Chloride (Merrem/Iv Sodium Chloride 0.9% 100ml) 100 ml @ 200 mls/hr Q8HRS IV Last administered on 12/17/16 05:57; Start 12/13/16 at 08:30; Stop 12/17/16 at 09:20; Status DC Iohexol (Omnipaque 240 Mg/ml) 30 ml 1X ONCE PO Last administered on 12/13/16 09:15; Start 12/13/16 at 09:15; Stop 12/13/16 at 09:16; Status DC Iohexol (Omnipaque 300 Mg/ml) 75 ml 1X ONCE IV Last administered on 12/13/16 10:34; Start 12/13/16 at 09:15; Stop 12/13/16 at 09:16; Status DC Info 1 each 1 each PRN DAILY PRN MC SEE COMMENTS; Start 12/13/16 at 09:15; Stop 12/15/16 at 09:14; Status DC Sodium Chloride 500 ml @ 500 mls/hr 1X ONCE IV Last administered on 12:00; Start 12/13/16 at 12:00; Stop 12/13/16 at 12:59; Status DC Sodium Chloride (Iv Sodium Chloride 0.9% 1000ml Bag) 1,000 ml @ 150 mls/hr 1X ONCE IV Last administered on 12/13/16 12:00; Start 12/13/16 at 12:00; Stop at 18:39; Status DC Zolpidem Tartrate (Ambien) 5 mg PRN QHS PRN PO INSOMNIA, MAY REPEAT IN 1HR Last administered on 12/13/16 22:14; Start 12/13/16 at 16:45; Stop 12/14/16 at 08:45; Status DC Bisacodyl (Dulcolax Tab) 10 mg PRN DAILY PRN PO CONSTIPATION Last administered on 12/17/16 06:02; Start 12/13/16 at 16:45 Lubiprostone (Amitiza) 8 mcg BIDWMEALS PO Last administered on 12/17/16 17:24 ; Start 12/13/16 at 17:00 Diltiazem HCl (Cardizem 24hr Cd) 180 mg 1X ONCE PO Last administered on 17:32; Start 12/13/16 at 16:45; Stop 12/13/16 at 16:48; Status DC Diltiazem HCl (Cardizem 24hr Cd) 180 mg DAILY PO Last administered on 08:02; Start 12/14/16 at 09:00; Stop 12/16/16 at 08:51; Status DC Guaifenesin (Robitussin Dm) 10 ml PRN Q4HRS PRN PO COUGH Last administered on 11:58; Start 12/13/16 at 19:45; Stop 12/14/16 at 16:00; Status DC Guaifenesin/ Codeine Phosphate (Robitussin Ac) 5 ml PRN Q4HRS PRN PO COUGH; Start 12/13/16 at 19:45 Guaifenesin/ Codeine Phosphate (Robitussin Ac) 10 ml PRN Q4HRS PRN PO COUGH; Start 12/13/16 at 19:45 Potassium Chloride (Klor-Con) 20 meq 1X ONCE PO Last administered on 09:29; Start 12/14/16 at 08:45; Stop 12/14/16 at 08:47; Status DC Lidocaine/Sodium Bicarbonate (Buffered Lidocaine 1%) 20 ml 1X ONCE IJ Last administered on 12/14/16 10:51; Start 12/14/16 at 10:15; Stop 12/14/16 at 10:18 ; Status DC Midazolam HCl (Versed) 2 mg 1X ONCE IV Last administered on 12/14/16 10:51; Start 12/14/16 at 10:15; Stop 12/14/16 at 10:18; Status DC Fentanyl Citrate (Fentanyl 2ml Vial) 100 mcg 1X ONCE IV Last administered on 10:52; Start 12/14/16 at 10:15; Stop 12/14/16 at 10:18; Status DC Flumazenil (Romazicon) 0.5 mg STK-MED ONCE IV ; Start 12/14/16 at 10:08; Stop at 10:17; Status DC Naloxone HCl (Narcan) 0.4 mg STK-MED ONCE .ROUTE ; Start 12/14/16 at 10:08; Stop 12/14/16 at 10:17; Status DC Acetaminophen/ Hydrocodone Bitart (Lortab 7.5/325) 1 tab PRN Q4HRS PRN PO MODERATE - SEVERE PAIN Last administered on 12/15/16 17:58; Start 12/14/16 at 15:00 Acetaminophen (Tylenol) 650 mg PRN Q6HRS PRN PO MILD PAIN / TEMP Last administered on 12/16/16 15:42; Start 12/14/16 at 15:45 Diltiazem HCl (Cardizem 24hr Cd) 240 mg DAILY PO Last administered on 09:32; Start 12/16/16 at 09:00 Diltiazem HCl 30 mg 30 mg BID PO Last administered on 12/16/16 21:40; Start at 09:30; Stop 12/16/16 at 21:01; Status DC Ceftriaxone Sodium/Sodium Chloride (Rocephin/Iv Sodium Chloride 0.9% 100ml) 100 ml @ 200 mls/hr Q24H IV Last administered on 12/19/16 10:36; Start 12/17/16 at 10:00 Metronidazole (Flagyl) 500 mg Q12HR PO Last administered on 12/19/16 09:33; Start 12/17/16 at 10:00 Active Scripts Active Reported Vitamin B-12 (Cyanocobalamin (Vitamin B-12)) 1,000 Mcg Tablet 1 Tab PO DAILY All Day Allergy (Cetirizine Hcl) 10 Mg Tablet 10 Mg PO Advair 250-50 Diskus (Fluticasone/Salmeterol) 1 Each Disk.w.dev 1 Puff IH BID Omeprazole 20 Mg Capsule. 20 Mg PO BID Simvastatin 20 Mg Tablet 1 Tab PO QHS Valsartan-Hctz 80-12.5 Mg Tab (Valsartan/Hydrochlorothiazide) 1 Each Tablet 1 Each PO DAILY Aspir 81 (Aspirin) 81 Mg Tablet. 1 Tab PO DAILY Vitals/I & O Vital Sign - Last 24 Hours 12/18/16 12/18/16 12/18/16 12/18/16 15:00 16:33 19:00 20:00 Temp 97.7 97.9 97.7 97.9 Pulse 78 76 Resp 20 16 B/P 134/83 130/79 Pulse Ox 97 94 O2 Delivery Room Air Room Air Room Air O2 Flow Rate 4.0 12/18/16 12/18/16 12/18/16 12/19/16 20:04 20:07 23:00 03:00 Temp 97.7 97.8 97.7 97.8 Pulse 74 66 Resp 16 18 B/P 125/85 142/87 Pulse Ox 95 95 98 96 O2 Delivery Room Air Room Air 2/2612/19/16 12/19/16 12/19/16 07:00 07:32 08:00 09:32 Temp 97.7 97.7 Pulse 63 63 Resp 20 B/P 137/87 137/87 Pulse Ox 94 96 O2 Delivery Room Air Room Air Room Air 12/19/16 12/19/16 12/19/16 09:32 11:00 11:31 Temp 98.1 98.1 Pulse 63 64 Resp 20 B/P 137/87 138/87 Pulse Ox 96 O2 Delivery Room Air Room Air Intake and Output 12/18/16 12/18/16 12/19/16 15:00 23:00 07:00 Intake Total 780 ml 740 ml Output Total 20 ml Balance 780 ml 720 ml CHIDI QUINTERO MD Dec 19, 2016 13:06
[2016-12-19 15:00] VITALS: BP 136/82
[2016-12-19 19:00] VITALS: BP 122/79
[2016-12-19] MEDS: PANTOPRAZOLE 40 MG TABLET. PO SCH (20:48)
[2016-12-19] MEDS: ATORVASTATIN CALCIUM 10 MG TABLET. PO SCH (20:48)
[2016-12-19 22:58] VITALS: BP 129/83
[2016-12-20 03:00] VITALS: BP 129/84
[2016-12-20 05:23] LABS: BASO # 0.1 x10^3/uL (0.0-0.2); BASO % 1 % (0-3); EOS % 3 % (0-3); HEMATOCRIT 32.9 % (39.0-53.0); LYMPH # 1.4 x10^3/uL (1.0-4.8); LYMPH % 16 % (24-48); MEAN CORPUSCULAR HEMOGLOBIN 33 pg (25-35); MEAN CORPUSCULAR HGB CONC 33 g/dL (31-37); MEAN CORPUSCULAR VOLUME 99 fL (79-100); MONO % 8 % (0-9); NEUT % 72 % (31-73); PLATELET COUNT 572 x10^3/uL (140-400); RED BLOOD COUNT 3.32 x10^6/uL (4.30-5.70); WHITE BLOOD COUNT 8.5 x10^3/uL (4.0-11.0)
[2016-12-20 07:00] VITALS: BP 147/91
[2016-12-20] MEDS: IPRATRPIUM/ALBUTEROL 0.5/2.5MG 3 ML NEBU. NEB SCH ×3 (07:27→15:22)
[2016-12-20] MEDS: BUDESONIDE 0.5 MG/2 ML NEBU NEB SCH (07:27)
[2016-12-20] MEDS: LUBIPROSTONE 8 MCG CAPSULE PO SCH ×2 (08:00→17:00)
[2016-12-20] MEDS: ASPIRIN ENTERIC COATED 81 MG TABLET.DR. PO SCH (09:14)
[2016-12-20] MEDS: CYANOCOBALAMIN (VITAMIN B-12) 1,000 MCG TABLET. PO SCH (09:14)
[2016-12-20] MEDS: METRONIDAZOLE 500 MG TABLET. PO SCH (09:14)
[2016-12-20] MEDS: CETIRIZINE HCL 10 MG TABLET PO SCH (09:14)
[2016-12-20] MEDS: DILTIAZEM HCL 240 MG CAP.ER.24H PO SCH (09:14)
[2016-12-20] MEDS: LOSARTAN POTASSIUM 50 MG TABLET. PO SCH (09:15)
--- NOTE | 2016-12-20 09:38 | PDOC ---
Infectious Disease Note Subjective Subjective Comfortable, denies pain Appetite improved, eating No further diarrhea. Doing well ROS ROS GEN: Denies fevers, chills, sweats HEENT: Denies blurred vision, sore throat CV: Denies chest pain RESP: Denies shortness of air, cough GI: Denies n/v/d NEURO: Denies confusion, dizziness MSK: Denies weakness, joint pain/swelling Vital Sign Vital Signs Vital Signs Date Time Temp Pulse Resp B/P Pulse Ox O2 Delivery O2 Flow Rate FiO2 12/20/16 09:15 78 147/91 12/20/16 07:28 97 Room Air 12/20/16 07:00 98.7 18 98.7 Physical Exam PHYSICAL EXAM GENERAL: up in the chair, relaxed appearance LUNGS: Clear HEART: S1S2, no gallop, no murmur ABD: Soft, NT, LUCIO intact, sanguinous cloudy drainage EXT: BLE edema, 1+ [employer]: Alert, oriented x 3, no focal neurologic deficit SKIN: No rash IV: ok Labs Lab Laboratory Tests Test 12/20/16 03:55 White Blood Count 8.5x10^3/uL (4.0-11.0) Red Blood Count 3.32x10^6/uL (4.30-5.70) Hemoglobin 11.0g/dL (13.0-17.5) Hematocrit 32.9% (39.0-53.0) Mean Corpuscular Volume 99fL (79-100) Mean Corpuscular Hemoglobin 33pg (25-35) Mean Corpuscular Hemoglobin Concent 33g/dL (31-37) Red Cell Distribution Width 14.0% (11.5-14.5) Platelet Count 572x10^3/uL (140-400) Neutrophils (%) (Auto) 72% (31-73) Lymphocytes (%) (Auto) 16% (24-48) Monocytes (%) (Auto) 8% (0-9) Eosinophils (%) (Auto) 3% (0-3) Basophils (%) (Auto) 1% (0-3) Neutrophils # (Auto) 6.2x10^3uL (1.8-7.7) Lymphocytes # (Auto) 1.4x10^3/uL (1.0-4.8) Monocytes # (Auto) 0.6x10^3/uL (0.0-1.1) Eosinophils # (Auto) 0.3x10^3/uL (0.0-0.7) Basophils # (Auto) 0.1x10^3/uL (0.0-0.2) Micro Klebsiella pneumoniae Recovered from aerobic and anaerobic bottles. 2 OF 2 SETS ANTIMICROBIAL SUSCEPTIBILITY Final Comment S = Susceptible; I = Intermediate; R = Resistant P = Positive; N = Negative MICS are expressed in micrograms per mL Antibiotic RSLT#1 RSLT#2 RSLT#3 RSLT#4 Amoxicillin/Clavulanic Acid S<=2 Ampicillin R>=32 Cefepime S<=1 Ceftriaxone S<=1 Cefuroxime S =2 Cephalothin S =4 Ciprofloxacin S<=0.25 Ertapenem S<=0.5 Gentamicin S<=1 Imipenem S<=1 Levofloxacin S<=0.12 Nitrofurantoin I =64 Piperacillin R =32 Tetracycline S<=1 Tobramycin S<=1 Trimethoprim/Sulfa S<=20 Performed at: [facility] Objective Assessment Klebsiella - sepsis - POA 12/12 Liver lesion - abscess s/p drain 12/14 - Klebsiella Fever - better Clinically he looks better Leukocytosis - better Afib -new Abd discomfort -better Plan Plan of Care Rocephin today D/c po Flagyl Would probably benefit from Colonoscopy as urine is not the source Await IR eval for drain ? removal Home of Augmentin ok to start 12/21 for 2 weeks F/u in 2 weeks [phone] scan in 10 days D/w daughter SARIAH YEE MD Dec 20, 2016 09:38
--- NOTE | 2016-12-20 09:59 | PDOC ---
PROGRESS NOTES Subjective Subjective No new complaints today. Pt is slowly recovering. Pt denies chest pain, SOB, n , v, diaphoresis, headache. Objective Objective Vital Signs Date Time Temp Pulse Resp B/P Pulse Ox O2 Delivery O2 Flow Rate FiO2 12/20/16 09:15 78 147/91 12/20/16 07:28 97 Room Air 12/20/16 07:00 98.7 18 98.7 12/18/16 20:00 4.0 Intake and Output 12/20/16 07:00 Intake Total 860 ml Output Total 2840 ml Balance -1980 ml Intake Oral 860 ml Output Urine Total 2800 ml Other 40 ml # Voids 4 Physical Exam Physical Exam No change in cardiac exam. RRR, S1, S2. no murmur Assessment Assessment Problems Medical Problems: (1) Atrial fibrillation with RVR Status: Acute (2) Dehydration Status: Acute (3) FUO (fever of unknown origin) Status: Acute (4) Generalized weakness Status: Acute (5) Hypokalemia Status: Acute (6) Leukocytosis Status: Acute (7) Sepsis due to undetermined organism Status: Acute Plan Plan of Care Agree with current treatment plan Stable from cardiac perspective Follow ID Comment Review of Relevant I have reviewed the following items norma (where applicable) has been applied. Labs Laboratory Tests Test 12/20/16 03:55 White Blood Count 8.5x10^3/uL (4.0-11.0) Red Blood Count 3.32x10^6/uL (4.30-5.70) Hemoglobin 11.0g/dL (13.0-17.5) Hematocrit 32.9% (39.0-53.0) Mean Corpuscular Volume 99fL (79-100) Mean Corpuscular Hemoglobin 33pg (25-35) Mean Corpuscular Hemoglobin Concent 33g/dL (31-37) Red Cell Distribution Width 14.0% (11.5-14.5) Platelet Count 572x10^3/uL (140-400) Neutrophils (%) (Auto) 72% (31-73) Lymphocytes (%) (Auto) 16% (24-48) Monocytes (%) (Auto) 8% (0-9) Eosinophils (%) (Auto) 3% (0-3) Basophils (%) (Auto) 1% (0-3) Neutrophils # (Auto) 6.2x10^3uL (1.8-7.7) Lymphocytes # (Auto) 1.4x10^3/uL (1.0-4.8) Monocytes # (Auto) 0.6x10^3/uL (0.0-1.1) Eosinophils # (Auto) 0.3x10^3/uL (0.0-0.7) Basophils # (Auto) 0.1x10^3/uL (0.0-0.2) Laboratory Tests Test 12/20/16 03:55 White Blood Count 8.5x10^3/uL (4.0-11.0) Red Blood Count 3.32x10^6/uL (4.30-5.70) Hemoglobin 11.0g/dL (13.0-17.5) Hematocrit 32.9% (39.0-53.0) Mean Corpuscular Volume 99fL (79-100) Mean Corpuscular Hemoglobin 33pg (25-35) Mean Corpuscular Hemoglobin Concent 33g/dL (31-37) Red Cell Distribution Width 14.0% (11.5-14.5) Platelet Count 572x10^3/uL (140-400) Neutrophils (%) (Auto) 72% (31-73) Lymphocytes (%) (Auto) 16% (24-48) Monocytes (%) (Auto) 8% (0-9) Eosinophils (%) (Auto) 3% (0-3) Basophils (%) (Auto) 1% (0-3) Neutrophils # (Auto) 6.2x10^3uL (1.8-7.7) Lymphocytes # (Auto) 1.4x10^3/uL (1.0-4.8) Monocytes # (Auto) 0.6x10^3/uL (0.0-1.1) Eosinophils # (Auto) 0.3x10^3/uL (0.0-0.7) Basophils # (Auto) 0.1x10^3/uL (0.0-0.2) Microbiology 12/14/16 Blood Culture - Final, Complete NO GROWTH AFTER 5 DAYS 12/12/16 Throat Culture - Final, Complete 12/12/16 - Final, Complete 12/14/16 Anaerobic/Aerobic Culture - Preliminary, Resulted 12/14/16 Anaerobic Culture Result 1 (MARK) - Preliminary, Resulted 12/14/16 Aerobic Culture - Final, Resulted 12/14/16 Aerobic Culture Result 1 (MARK) - Final, Resulted 12/14/16 Antimicrobic Susceptibility - Final, Resulted Medications Current Medications Sodium Chloride (Iv Sodium Chloride 0.9% 1000ml Bag) 1,000 ml @ 1,000 mls/hr Q1H IV Last administered on 12/12/16 15:55; Start 12/12/16 at 15:45; Stop at 16:44; Status DC Ondansetron HCl (Zofran) 4 mg 1X ONCE IV Last administered on 12/12/16 15:58 ; Start 12/12/16 at 15:45; Stop 12/12/16 at 15:48; Status DC Ketorolac Tromethamine (Toradol) 30 mg 1X ONCE IV Last administered on 15:58; Start 12/12/16 at 15:45; Stop 12/12/16 at 15:48; Status DC Acetaminophen (Tylenol) 650 mg 1X ONCE PO Last administered on 12/12/16 16:02 ; Start 12/12/16 at 16:00; Stop 12/12/16 at 16:01; Status DC Ondansetron HCl 4 mg 4 mg PRN Q8HRS PRN IV NAUSEA/VOMITING; Start 12/12/16 at 17:30; Stop 12/13/16 at 17:29; Status DC Sodium Chloride (Iv Sodium Chloride 0.9% 1000ml Bag) 1,000 ml @ 125 mls/hr Q8H IV Last administered on 12/12/16 23:00; Start 12/12/16 at 17:45; Stop at 17:44; Status DC Acetaminophen (Tylenol) 650 mg PRN Q4HRS PRN PO FEVER; Start 12/12/16 at 17:30 ; Stop 12/13/16 at 17:29; Status DC Vancomycin HCl (Vanco Per Pharmacy) 1 each PRN DAILY PRN MC SEE COMMENTS Last administered on 12/12/16 19:56; Start 12/12/16 at 18:45; Stop 12/13/16 at 08:21 ; Status DC Piperacillin Sod/ Tazobactam Sod 1 each 1 each PRN DAILY PRN MC SEE COMMENTS; Start 12/12/16 at 18:45; Stop 12/13/16 at 08:23; Status DC Diltiazem HCl/ Dextrose (Cardizem) 125 ml @ 0 mls/hr CONT PRN IV SEE I/O RECORD Last administered on 12/13/16 05:54; Start 12/12/16 at 18:45; Stop 12/13 at 16:44; Status DC Diltiazem HCl 10 mg 10 mg 1X ONCE IVP Last administered on 12/12/16 18:38; Start 12/12/16 at 18:45; Stop 12/12/16 at 18:46; Status DC Vancomycin HCl 2 gm/Sodium Chloride 500 ml @ 250 mls/hr 1X ONCE IV Last administered on 12/12/16 19:26; Start 12/12/16 at 19:00; Stop 12/12/16 at 20:59 ; Status DC Piperacillin Sod/ Tazobactam Sod 3.375 gm/Sodium Chloride 50 ml @ 100 mls/hr 1X ONCE IV Last administered on 12/12/16 18:52; Start 12/12/16 at 19:00; Stop 12/12/16 at 19:29; Status DC Piperacillin Sod/ Tazobactam Sod/ Sodium Chloride (Zosyn/Iv Sodium Chloride 0.9 % 50ml) 50 ml @ 100 mls/hr Q6HRS IV Last administered on 12/13/16 05:48; Start 12/13/16 at 00:00; Stop 12/13/16 at 08:23; Status DC Diltiazem HCl 20 mg 20 mg 1X ONCE IVP Last administered on 12/12/16 19:15; Start 12/12/16 at 19:15; Stop 12/12/16 at 19:17; Status DC Sodium Chloride 3,060 ml @ 765 mls/hr Q4H IV Last administered on 12/12/16 21 :03; Start 12/12/16 at 19:30; Stop 12/12/16 at 23:29; Status DC Vancomycin HCl/ Sodium Chloride (Iv Sodium Chloride 0.9% 500ml Bag) 500 ml @ 250 mls/hr Q12H IV Last administered on 12/13/16 05:52; Start 12/13/16 at 07: 00; Stop 12/13/16 at 08:21; Status DC Vancomycin HCl 1 each 1X ONCE MC ; Start 12/14/16 at 06:30; Stop 12/14/16 at 06 :30; Status DC Digoxin (Lanoxin) 500 mcg 1X ONCE IV Last administered on 12/12/16 21:01; Start 12/12/16 at 21:00; Stop 12/12/16 at 21:01; Status DC Potassium Chloride (Klor-Con) 40 meq 1X ONCE PO Last administered on 21:41; Start 12/12/16 at 22:00; Stop 12/12/16 at 22:01; Status DC Pantoprazole Sodium (Protonix) 40 mg DAILYAC PO ; Start 12/13/16 at 07:30; Stop 12/13/16 at 07:30; Status DC Pantoprazole Sodium (Protonix) 40 mg HS PO Last administered on 12/19/16 20:48 ; Start 12/12/16 at 23:30 Aspirin (Ecotrin) 81 mg DAILY PO Last administered on 12/20/16 09:14; Start at 09:00 Cetirizine HCl (Zyrtec) 10 mg DAILY PO Last administered on 12/20/16 09:14; Start 12/13/16 at 09:00 Cyanocobalamin (Vitamin B-12) 1,000 mcg DAILY PO Last administered on 09:14; Start 12/13/16 at 09:00 Atorvastatin Calcium (Lipitor) 10 mg QHS PO Last administered on 12/19/16 20: 48; Start 12/13/16 at 21:00 Non-Formulary Medication 1 puff BID IH ; Start 12/13/16 at 09:00; Stop 12/13/16 at 09:00; Status DC Losartan Potassium (Cozaar) 50 mg DAILY PO Last administered on 12/20/16 09:15 ; Start 12/13/16 at 09:00 Hydrochlorothiazide (Microzide) 12.5 mg DAILY PO Last administered on 10:02; Start 12/13/16 at 09:00; Stop 12/14/16 at 08:45; Status DC Albuterol/ Ipratropium (Duoneb) 3 ml RTQID NEB Last administered on 12/20/16 07:27; Start 12/13/16 at 08:30 Budesonide 0.5 mg 0.5 mg RTBID NEB Last administered on 12/20/16 07:27; Start 12/13/16 at 08:30 Meropenem/Sodium Chloride (Merrem/Iv Sodium Chloride 0.9% 100ml) 100 ml @ 200 mls/hr Q8HRS IV Last administered on 12/17/16 05:57; Start 12/13/16 at 08:30; Stop 12/17/16 at 09:20; Status DC Iohexol (Omnipaque 240 Mg/ml) 30 ml 1X ONCE PO Last administered on 12/13/16 09:15; Start 12/13/16 at 09:15; Stop 12/13/16 at 09:16; Status DC Iohexol (Omnipaque 300 Mg/ml) 75 ml 1X ONCE IV Last administered on 12/13/16 10:34; Start 12/13/16 at 09:15; Stop 12/13/16 at 09:16; Status DC Info 1 each 1 each PRN DAILY PRN MC SEE COMMENTS; Start 12/13/16 at 09:15; Stop 12/15/16 at 09:14; Status DC Sodium Chloride 500 ml @ 500 mls/hr 1X ONCE IV Last administered on 12:00; Start 12/13/16 at 12:00; Stop 12/13/16 at 12:59; Status DC Sodium Chloride (Iv Sodium Chloride 0.9% 1000ml Bag) 1,000 ml @ 150 mls/hr 1X ONCE IV Last administered on 12/13/16 12:00; Start 12/13/16 at 12:00; Stop at 18:39; Status DC Zolpidem Tartrate (Ambien) 5 mg PRN QHS PRN PO INSOMNIA, MAY REPEAT IN 1HR Last administered on 12/13/16 22:14; Start 12/13/16 at 16:45; Stop 12/14/16 at 08:45; Status DC Bisacodyl (Dulcolax Tab) 10 mg PRN DAILY PRN PO CONSTIPATION Last administered on 12/17/16 06:02; Start 12/13/16 at 16:45 Lubiprostone (Amitiza) 8 mcg BIDWMEALS PO Last administered on 12/17/16 17:24 ; Start 12/13/16 at 17:00 Diltiazem HCl (Cardizem 24hr Cd) 180 mg 1X ONCE PO Last administered on 17:32; Start 12/13/16 at 16:45; Stop 12/13/16 at 16:48; Status DC Diltiazem HCl (Cardizem 24hr Cd) 180 mg DAILY PO Last administered on 08:02; Start 12/14/16 at 09:00; Stop 12/16/16 at 08:51; Status DC Guaifenesin (Robitussin Dm) 10 ml PRN Q4HRS PRN PO COUGH Last administered on 11:58; Start 12/13/16 at 19:45; Stop 12/14/16 at 16:00; Status DC Guaifenesin/ Codeine Phosphate (Robitussin Ac) 5 ml PRN Q4HRS PRN PO COUGH; Start 12/13/16 at 19:45 Guaifenesin/ Codeine Phosphate (Robitussin Ac) 10 ml PRN Q4HRS PRN PO COUGH; Start 12/13/16 at 19:45 Potassium Chloride (Klor-Con) 20 meq 1X ONCE PO Last administered on 09:29; Start 12/14/16 at 08:45; Stop 12/14/16 at 08:47; Status DC Lidocaine/Sodium Bicarbonate (Buffered Lidocaine 1%) 20 ml 1X ONCE IJ Last administered on 12/14/16 10:51; Start 12/14/16 at 10:15; Stop 12/14/16 at 10:18 ; Status DC Midazolam HCl (Versed) 2 mg 1X ONCE IV Last administered on 12/14/16 10:51; Start 12/14/16 at 10:15; Stop 12/14/16 at 10:18; Status DC Fentanyl Citrate (Fentanyl 2ml Vial) 100 mcg 1X ONCE IV Last administered on 10:52; Start 12/14/16 at 10:15; Stop 12/14/16 at 10:18; Status DC Flumazenil (Romazicon) 0.5 mg STK-MED ONCE IV ; Start 12/14/16 at 10:08; Stop at 10:17; Status DC Naloxone HCl (Narcan) 0.4 mg STK-MED ONCE .ROUTE ; Start 12/14/16 at 10:08; Stop 12/14/16 at 10:17; Status DC Acetaminophen/ Hydrocodone Bitart (Lortab 7.5/325) 1 tab PRN Q4HRS PRN PO MODERATE - SEVERE PAIN Last administered on 12/15/16 17:58; Start 12/14/16 at 15:00 Acetaminophen (Tylenol) 650 mg PRN Q6HRS PRN PO MILD PAIN / TEMP Last administered on 12/16/16 15:42; Start 12/14/16 at 15:45 Diltiazem HCl (Cardizem 24hr Cd) 240 mg DAILY PO Last administered on 09:14; Start 12/16/16 at 09:00 Diltiazem HCl 30 mg 30 mg BID PO Last administered on 12/16/16 21:40; Start at 09:30; Stop 12/16/16 at 21:01; Status DC Ceftriaxone Sodium/Sodium Chloride (Rocephin/Iv Sodium Chloride 0.9% 100ml) 100 ml @ 200 mls/hr Q24H IV Last administered on 12/19/16 10:36; Start 12/17/16 at 10:00 Metronidazole (Flagyl) 500 mg Q12HR PO Last administered on 12/20/16 09:14; Start 12/17/16 at 10:00; Stop 12/20/16 at 09:35; Status DC Active Scripts Active Reported Vitamin B-12 (Cyanocobalamin (Vitamin B-12)) 1,000 Mcg Tablet 1 Tab PO DAILY All Day Allergy (Cetirizine Hcl) 10 Mg Tablet 10 Mg PO Advair 250-50 Diskus (Fluticasone/Salmeterol) 1 Each Disk.w.dev 1 Puff IH BID Omeprazole 20 Mg Capsule. 20 Mg PO BID Simvastatin 20 Mg Tablet 1 Tab PO QHS Valsartan-Hctz 80-12.5 Mg Tab (Valsartan/Hydrochlorothiazide) 1 Each Tablet 1 Each PO DAILY Aspir 81 (Aspirin) 81 Mg Tablet. 1 Tab PO DAILY Vitals/I & O Vital Sign - Last 24 Hours 12/19/16 12/19/16 12/19/16 12/19/16 11:00 11:31 15:00 19:00 Temp 98.1 97.8 98.2 98.1 97.8 98.2 Pulse 64 74 76 Resp 20 20 18 B/P 138/87 136/82 122/79 Pulse Ox 96 96 96 O2 Delivery Room Air Room Air Room Air Room Air 12/19/16 12/19/16 12/19/16 12/20/16 19:35 20:04 22:58 03:00 Temp 97.5 98.0 97.5 98.0 Pulse 69 65 Resp 20 19 B/P 129/83 129/84 Pulse Ox 96 96 97 O2 Delivery Room Air Room Air BiPAP/CPAP BiPAP/CPAP 12/20/16 12/20/16 12/20/16 12/20/16 07:00 07:28 09:14 09:15 Temp 98.7 98.7 Pulse 78 78 78 Resp 18 B/P 147/91 147/91 147/91 Pulse Ox 94 97 O2 Delivery Room Air Room Air Intake and Output 12/19/16 12/19/16 12/20/16 15:00 23:00 07:00 Intake Total 380 ml 360 ml 120 ml Output Total 1680 ml 760 ml 400 ml Balance -1300 ml -400 ml -280 ml ODIN ELLSWORTH MD Dec 20, 2016 09:59
[2016-12-20] MEDS: CEFTRIAXONE SODIUM 2 GM in IV NORMAL SALINE 100ML 100 ML IV SCH (10:37)
[2016-12-20 11:18] VITALS: BP 133/83
[2016-12-20 14:51] VITALS: BP 128/72
== END 2016-12-20 20:00 | disposition home or self-care (01) | DRG 871 ==
LOC: ER 14:44 → 5 NORTH 17:12 → 1 WEST ICU 20:23 → 5 SOUTH 12-16 13:04
PROVIDERS: ADMIT Family Medicine; ATTEND Family Medicine
PROC: 0F9030Z Drainage of Liver with Drainage Device, Percutaneous Approach (ICD-10-PCS; principal; 2016-12-14)
DX: A41.59 Other Gram-negative sepsis (principal); K75.0 Abscess of liver; J15.0 Pneumonia due to Klebsiella pneumoniae; J44.0 Chronic obstructive pulmonary disease with (acute) lower respiratory infection; E78.00 Pure hypercholesterolemia, unspecified; E78.5 Hyperlipidemia, unspecified; E86.0 Dehydration; E87.6 Hypokalemia; F17.200 Nicotine dependence, unspecified, uncomplicated; G47.33 Obstructive sleep apnea (adult) (pediatric); E66.9 Obesity, unspecified; I10 Essential (primary) hypertension; I48.91 Unspecified atrial fibrillation; K22.70 Barrett's esophagus without dysplasia; J45.909 Unspecified asthma, uncomplicated; K21.9 Gastro-esophageal reflux disease without esophagitis; Z85.46 Personal history of malignant neoplasm of prostate; Z82.49 Family history of ischemic heart disease and other diseases of the circulatory system; Z90.49 Acquired absence of other specified parts of digestive tract; Z90.79 Acquired absence of other genital organ(s); Z68.31 Body mass index [BMI] 31.0-31.9, adult
CPT/HCPCS: 36415; 49406; 71020; 74177; 80048; 80053; 80076; 81001; 82550; 83605; 83690; 84145; 84443; 84484; 85007; 85027; 85610; 85651; 87040; 87070; 87071; 87075; 87186; 87205; 87641; 87804; 87880; 93005; 93306; 94250; 94640; 94760; 96361; 96365; 96375; A4215; C1729; J0696; J1160; J1885; J2185; J2250; J2405; J2543; J3010; J3370; J3490; J7030; J7040; J7620; Q9966; Q9967; 97116; 99285-25

== ENCOUNTER → 2016-12-24 | Outpatient (CLI) | payer MEDICARE, BC ==
[2016-12-20 14:51] VITALS: BP 128/72
[~2016-12-24] MED LIST changes: +CONTRAST GIVEN MC PRN; +IOHEXOL 300 MG/ML 75 ML VIAL IV ONE
--- NOTE | 2016-12-24 14:56 | RAD ---
CT of the abdomen with IV contrast compared to noncontrast exam dated August 13, 2017 for history of hepatic abscess, follow-up on drainage. Technique: Contiguous helical 5 mm axial images are obtained from the apex the diaphragm to the iliac crest. Sagittal and coronal reformations are evaluated. Findings: There is patchy atelectasis in the lung bases. Multilevel degenerative changes of the spine are seen with no suspicious osteoblastic or osteolytic bone lesions. No free or loculated fluid collections are seen within the abdomen or pelvis. The pancreas, spleen, bilateral adrenal glands, and bilateral kidneys are grossly unremarkable as well as, though there is a small amount of peripancreatic fat stranding bilaterally which is nonspecific. Evaluation of the hollow viscus of the abdomen is limited by lack of oral contrast. No gross abnormalities are seen however. Gallbladder surgically absent. There is produced drain within the right lobe of the liver, and there is been significant involution of previously seen large hepatic abscess. There is a small 1.5 cm loculated localized fluid collection anterior to the pigtail portion of the catheter which may represent a small separate persistent parenchymal abscess. The pigtail catheter itself is surrounded by an involuted area of decreased attenuation likely representing healing abscess. Impression: 1. Patchy multifocal atelectasis. 2. Significantly improved intrahepatic abscess, with no significant fluid around the existing pigtail catheter. There is a small 1.5 cm loculated fluid collection anterior to the pigtail which may represent a small persistent parenchymal abscess however. 3. Removal of the patient's drain after discussion with the patient revealing less than 15 cc of output daily despite once a day interrogation.
== END | disposition home or self-care (01) ==
LOC: CT 12:28
PROVIDERS: ATTEND Family Medicine
DX: K75.0 Abscess of liver (principal); J98.11 Atelectasis
CPT/HCPCS: 74160; Q9967

== ENCOUNTER → 2017-01-21 | Day surgery (SDC) | payer MEDICARE, BC ==
[~2017-01-21] MED LIST changes: -CONTRAST GIVEN MC PRN; +FENTANYL PF 100 MCG/2 ML VIAL. IV PRN; +HYDROMORPHONE 2 MG/ML VIAL. IV PRN; -IOHEXOL 300 MG/ML 75 ML VIAL IV ONE; +IV RINGERS,LACTATED 1000ML 1,000 ML IV SCH; +LIDOCAINE 1% 1 ML SYRINGE. ID PRN; +LIDOCAINE 2% PF Vial for OR 5 ML VIAL. ONE; +MORPHINE SULFATE 2 MG/ML DISP.SYRIN. IV PRN; +ONDANSETRON PF 4 MG/2 ML VIAL. IV PRN; +PROCHLORPERAZINE 10 MG/2 ML VIAL. IV PRN; +PROPOFOL 20 ML IV ONE
[2017-01-21 09:10] VITALS: BP 109/79
--- NOTE | 2017-01-21 11:53 | CONS ---
DATE OF CONSULTATION: 01/21/2017 REFERRING PHYSICIAN: Fermin White. HISTORY OF PRESENT ILLNESS: A 71-year-old male with past medical history significant for Zendejas's, surveillance medications, seen for surveillance exam. No dysphagia, odynophagia, heartburn. Change in weight is noted. He is also having screening colon exam with a personal history of polyps as well as recent liver abscess, possibly related to his diverticular disease. There has been no melena, hematochezia or additional constitutional complaints. Since the abscess has been treated, he is without additional complaints. PAST MEDICAL HISTORY: Sleep apnea, prostate cancer, Zendejas's, hypertension, hyperlipidemia, diverticular disease. ALLERGIES: None. MEDICATIONS: Aspirin, cetirizine, vitamin B12, Advair, omeprazole, simvastatin, valsartan/hydrochlorothiazide. FAMILY HISTORY: Significant for hypertension of the sibling, pancreatic cancer of an uncle, breast cancer of his mother, liver cancer of a brother, colon cancer of a maternal uncle and one brother. FAMILY AND SOCIAL HISTORY: He is a former smoker. He is a social drinker. REVIEW OF SYSTEMS: Per records. PHYSICAL EXAMINATION: GENERAL: Reveals a well-nourished, well-developed male. Alert, cooperative, in no acute distress. VITAL SIGNS: Temperature is 97, pulse 90, respiratory rate 16. HEENT: Normocephalic and atraumatic head. Pupils and extraocular muscles not tested. Sclerae anicteric. NECK: Supple. LUNGS: Clear. CARDIOVASCULAR: Reveals S1, S2 without S3, S4 or appreciable murmur. ABDOMEN: Soft abdomen, normal bowel sounds, without appreciable hepatosplenomegaly. EXTREMITIES: Reveals no cyanosis, clubbing or edema. IMPRESSION AND PLAN: 1. Zendejas's surveillance exam was recommended at this time with last exam being 3 years ago. 2. History of colon polyps and family history of colon cancer as well as recent liver abscesses. We will recommend interval colonoscopy. Risks and benefits of procedure have been previously discussed including risk of perforation during the operation. He is willing to proceed. HASMUKH DELA CRUZ MD DR: YASMIN/tianna JOB#: [id number] / [id number]
--- NOTE | 2017-01-24 15:31 | PATHOLOGY ---
PATHOLOGY REPORT * * * * * * * * FINAL DIAGNOSIS: Esophageal biopsy, distal esophagus: - Segments of hyperplastic squamous esophageal mucosa and segment of gastric mucosa showing mild to moderate chronic inflammation, consistent with reflux esophagitis. COMMENT: Sections of the distal esophageal biopsy reveal segments of hyperplastic squamous esophageal mucosa and a segment of gastric mucosa showing mild to moderate chronic inflammation. Occasional intraepithelial eosinophils are present within the squamous esophageal mucosa. The findings are consistent with reflux esophagitis. There is no evidence of Zendejas's change, dysplasia, or malignancy. (JPM:; d/t: 01/24/17) REPORT ELECTRONICALLY SIGNED BY: Juan Mendez M.D. DATE/TIME: 01/24/2017 15:30 * * * * * * * * GROSS PATHOLOGY: Received in formalin labeled "Trish Fleming, distal esophagus, R/O dysplasia," are five segments of prajapati soft tissue measuring 0.9 x 0.8 x 0.1 cm in aggregate dimensions and ranging from 0.3 to 0.5 cm in maximum dimension. The specimen is submitted entirely in cassette A1. (CAA; 01/21/2017) INITIAL CPT CODE(S): A; 01561 Professional services performed [place] [facility] [place] [address] Technical services performed by [facility] at [address] [place] [address]. SPECIMEN(S) RECEIVED: A.Distal esophagus CLINICAL HISTORY: Zendejas's, R/O dysplasia PATIENT: TRISH FLEMING /AGE: 11 1945 (Age: 71) PATIENT #: [id number] ALT CASE #: SPECIMEN COLLECTION DATE: 01/21/2017 SPECIMEN RECEIVED DATE: 01/21/2017 [facility] - [address] [place] [address] - PHONE: [phone] * * * END OF REPORT * * *
== END | disposition home or self-care (01) ==
LOC: ENDOS 06:31
PROVIDERS: ATTEND Internal Medicine Gastroenterology
DX: K57.30 Diverticulosis of large intestine without perforation or abscess without bleeding (principal); K64.0 First degree hemorrhoids; K22.70 Barrett's esophagus without dysplasia; K29.50 Unspecified chronic gastritis without bleeding; E78.00 Pure hypercholesterolemia, unspecified; I10 Essential (primary) hypertension; I48.91 Unspecified atrial fibrillation; J44.9 Chronic obstructive pulmonary disease, unspecified; J45.909 Unspecified asthma, uncomplicated; M19.90 Unspecified osteoarthritis, unspecified site; Z98.42 Cataract extraction status, left eye; Z98.41 Cataract extraction status, right eye; Z90.49 Acquired absence of other specified parts of digestive tract
CPT/HCPCS: 43239; 45378; 88305; J2704

== ENCOUNTER → 2017-03-25 | Outpatient (CLI) | payer MEDICARE, BC ==
[2017-01-21 09:10] VITALS: BP 109/79
[~2017-03-25] MED LIST changes: +CONTRAST GIVEN MC PRN; -FENTANYL PF 100 MCG/2 ML VIAL. IV PRN; -HYDROMORPHONE 2 MG/ML VIAL. IV PRN; +IOHEXOL 240 MG/ML 50ML VIAL. PO ONE; -IV RINGERS,LACTATED 1000ML 1,000 ML IV SCH; -LIDOCAINE 1% 1 ML SYRINGE. ID PRN; -LIDOCAINE 2% PF Vial for OR 5 ML VIAL. ONE; -MORPHINE SULFATE 2 MG/ML DISP.SYRIN. IV PRN; -ONDANSETRON PF 4 MG/2 ML VIAL. IV PRN; -PROCHLORPERAZINE 10 MG/2 ML VIAL. IV PRN; -PROPOFOL 20 ML IV ONE
--- NOTE | 2017-03-25 14:31 | RAD ---
Indication follow-up liver abscess. Axial images through the abdomen and pelvis were obtained. Oral contrast was administered. IV contrast was not. Note is made of a previous examination 12/24/2016. The examination is limited in that no IV contrast was administered The lung bases are unremarkable. No definite hepatic mass is seen on today's exam but again the study is slightly limited in that no IV contrast was administered. The spleen appears unremarkable. Clips are seen in the gallbladder fossa. There are no adrenal masses and the kidneys appear normal. An acute finding in the abdomen is not seen. In the pelvis no acute finding is seen. Occasional diverticula are seen associated with the large bowel. Active inflammation is not seen. Degenerative changes are noted associated with the lumbar spine. IMPRESSION: Slightly limited study in that IV contrast was not administered. No acute finding is seen. No definite hepatic anomaly is seen. PQRS Compliance Statement: One or more of the following individualized dose reduction techniques were utilized for this examination: 1. Automated exposure control 2. Adjustment of the mA and/or kV according to patient size 3. Use of iterative reconstruction technique
== END | disposition home or self-care (01) ==
LOC: CT 10:30
PROVIDERS: ATTEND Family Medicine
DX: K75.0 Abscess of liver (principal)
CPT/HCPCS: 74176; Q9966

== ENCOUNTER → 2018-08-02 | Outpatient (CLI) | payer BC, MEDICARE ==
[2017-09-23 11:21] VITALS: BP 143/91
[~2018-08-02] MED LIST changes: +APIX5TAB PO; +CETI-281 PO; -CETI10TA2 PO; +CLON0.5T11 PO; -CONTRAST GIVEN MC PRN; +DRON400T PO; +FEXO180T81 PO; +FLEC100T PO; -IOHEXOL 240 MG/ML 50ML VIAL. PO ONE; +METO-239 PO; +MULT1TAB52 PO; +MV-M1TAB19 PO
[2018-08-02 11:07] LABS: ALBUMIN 3.6 g/dL (3.4-5.0); ALBUMIN/GLOBULIN RATIO 0.9 (1.0-1.7); CALCIUM 8.8 mg/dL (8.5-10.1); CREATININE 0.9 mg/dL (0.7-1.3); GFR 83.2; POTASSIUM 4.2 mmol/L (3.5-5.1); TOTAL BILIRUBIN 1.2 mg/dL (0.2-1.0); TOTAL PROTEIN 7.5 g/dL (6.4-8.2)
[2018-08-02 11:18] LABS: CHOLESTEROL/HDL RATIO 2.5
== END | disposition home or self-care (01) ==
LOC: LAB 10:26
PROVIDERS: ATTEND Internal Medicine Cardiovascular Disease
DX: Z12.5 Encounter for screening for malignant neoplasm of prostate (principal); I48.0 Paroxysmal atrial fibrillation; I10 Essential (primary) hypertension; E78.5 Hyperlipidemia, unspecified; E78.00 Pure hypercholesterolemia, unspecified; J44.9 Chronic obstructive pulmonary disease, unspecified; K21.9 Gastro-esophageal reflux disease without esophagitis; M19.90 Unspecified osteoarthritis, unspecified site; Z72.89 Other problems related to lifestyle; Z87.891 Personal history of nicotine dependence
CPT/HCPCS: 36415; 80053; 80061; G0103

== ENCOUNTER → 2019-08-29 | Outpatient (CLI) | payer MEDICARE ==
[2017-09-23 11:21] VITALS: BP 143/91
[~2019-08-29] MED LIST changes: -CETI-281 PO; +CETI10TA PO; +CLON-77 PO; -CLON0.5T11 PO; +CYAN-25 PO; -CYAN10005 PO; +OMEP20CA10 PO; -OMEP20CA9 PO; +SIMV20TA18 PO; -SIMV20TA3 PO
[2019-08-29 10:03] LABS: BASO % 1 % (0-3); EOS # 0.3 x10^3/uL (0.0-0.7); EOS % 5 % (0-3); HEMATOCRIT 43.4 % (39.0-53.0); LYMPH # 1.5 x10^3/uL (1.0-4.8); LYMPH % 24 % (24-48); MEAN CORPUSCULAR HEMOGLOBIN 34 pg (25-35); MEAN CORPUSCULAR HGB CONC 35 g/dL (31-37); MEAN CORPUSCULAR VOLUME 99 fL (79-100); MONO # 0.6 x10^3/uL (0.0-1.1); MONO % 9 % (0-9); NEUT # 4.1 x10^3/uL (1.8-7.7); NEUT % 62 % (31-73); PLATELET COUNT 234 x10^3/uL (140-400); RED CELL DISTRIBUTION WIDTH 12.8 % (11.5-14.5); WHITE BLOOD COUNT 6.6 x10^3/uL (4.0-11.0)
[2019-08-29 10:38] LABS: ALBUMIN 3.9 g/dL (3.4-5.0); CALCIUM 8.9 mg/dL (8.5-10.1); GFR 73.5; POTASSIUM 4.2 mmol/L (3.5-5.1); TOTAL BILIRUBIN 1.9 mg/dL (0.2-1.0)
[2019-08-29 10:39] LABS: CHOLESTEROL/HDL RATIO 2.7
== END | disposition home or self-care (01) ==
LOC: LAB 09:47
PROVIDERS: ATTEND Internal Medicine Cardiovascular Disease
DX: E78.5 Hyperlipidemia, unspecified (principal); I48.0 Paroxysmal atrial fibrillation
CPT/HCPCS: 36415; 80053; 80061; 83880; 85025

== ENCOUNTER 2019-09-11 11:19 | Day surgery (SDC) | payer MEDICARE ==
[~2019-09-11 11:19] MED LIST changes: +AMLO10TA8 PO; +ATOR40TA59 PO; +FURO40TA4 PO; +HYDROmorphone 2 MG/ML VIAL IV PRN; +IV RINGERS,LACTATED 1000ML 1,000 ML IV SCH; +METO25TA4 PO; +MORPHINE SULFATE 2 MG/ML VIAL. IV PRN; +PROCHLORPERAZINE 10 MG/2 ML VIAL. IV PRN; +fentaNYL PF VIAL 100 MCG/2 ML VIAL IV PRN
[2019-09-11] MEDS ORDERED: BENZOCAINE ONE 20% MUCOSAL SPRAY. (12:42)
[2019-09-11] MEDS ORDERED: LIDOCAINE 2% VISCOUS 15 ML SOLUTION. ONE (12:43)
[2019-09-11] MEDS ORDERED: LIDOCAINE 2% TOPICAL JELLY 30GM TUBE. TP ONE ×2 (12:44→12:45)
[2019-09-11] MEDS ORDERED: LIDOCAINE 2% VISCOUS 15 ML SOLUTION. SWSW ONE (12:45)
[2019-09-11] MEDS ORDERED: BENZOCAINE ONE 20% MUCOSAL SPRAY. MM (12:45)
[2019-09-11] MEDS ORDERED: LIDOCAINE 2% PF 5 ML VIAL. ONE ×2 (12:53→14:02)
[2019-09-11] MEDS ORDERED: PROPOFOL 20 ML IV ONE (12:53)
[2019-09-11] MEDS ORDERED: PHENYLEPHRINE in 0.9% NACL PF 1 MG/10 ML SYRINGE. IV ONE (12:53)
[2019-09-11 14:41] VITALS: BP 127/79
--- NOTE | 2019-09-11 15:06 | CARD ---
MR#: [id number] Date of Study: 09/11/2019 Ordering Physician: MEDARDO MEDINA, Referring Physician: MEDARDO MEDINA Tech: Demetra Melendez RDCS APPROVED REPORT EXAM: Transesophageal echocardiogram with color flow Doppler. INDICATION Pre-Ablation, R/O Thrombus Reason For Test : Rule out Intracardiac Thrombus. PROCEDURE After obtaining informed consent, patient underwent transesophageal echo in the PACU. Type of Sedation : General Anesthesia Sedation was administered by Judy Ribeiro CRNA. Sedation was achieved with Propofol 180 mg intravenously. Transesophageal probe was inserted and advanced into esophagus by Medardo Medina MD. The SAMM was performed without complications. Throughout the procedure, the blood pressure, pulse oximetry, cardiac rhythm, and rate were monitored . The patient tolerated the procedure without adverse effects. Recovery from general anesthesia was une ventful and vital signs were stable. LEFT VENTRICLE The left ventricle is normal size. There is normal left ventricular wall thickness. The left ventricu lar systolic function is normal and the ejection fraction is within normal range. The Ejection Fracti on is 55-60%. There is normal LV segmental wall motion. No left ventricle thrombus noted on this stud y. RIGHT VENTRICLE The right ventricle is normal size. There is normal right ventricular wall thickness. The right ventr icular systolic function is normal. ATRIA The left atrium size is normal. The right atrium size is normal. The interatrial septum is intact wit h no evidence for an atrial septal defect or patent foramen ovale as noted on 2-D or Doppler imaging. There is no thrombus noted in the left atrial appendage. AORTIC VALVE The aortic valve is normal in structure and function. Doppler and Color Flow revealed trace to mild a ortic regurgitation. There is no significant aortic valvular stenosis. MITRAL VALVE The mitral valve is normal in structure and function. A borderline mitral valve prolapse is present. There is no mitral valve stenosis. Doppler and Color-flow revealed mild mitral eccentric regurgitatio n. TRICUSPID VALVE The tricuspid valve is normal in structure and function. Doppler and Color Flow revealed trace tricus pid regurgitation. There is no tricuspid valve stenosis. PULMONIC VALVE The pulmonic valve is not well visualized. Doppler and Color Flow revealed no pulmonic valvular regur gitation. There is no pulmonic valvular stenosis. GREAT VESSELS The aortic root is normal in size. The ascending aorta is mildly dilated at 3.6 cm. The IVC is normal in size and collapses >50% with inspiration. Critical Notification Critical Value: No <Conclusion> The left ventricular systolic function is normal and the ejection fraction is within normal range. Th e Ejection Fraction is 55-60%. Normal segmental wall motion. The ascending aorta is mildly dilated at 3.6 cm. Signed by : Medardo Medina, Electronically Approved : 09/11/2019 15:05:49
== END 2019-09-11 15:05 | disposition home or self-care (01) ==
LOC: SURG 11:19
PROVIDERS: ATTEND Internal Medicine Cardiovascular Disease
DX: I34.0 Nonrheumatic mitral (valve) insufficiency (principal); E66.9 Obesity, unspecified; I10 Essential (primary) hypertension; E78.00 Pure hypercholesterolemia, unspecified; I48.91 Unspecified atrial fibrillation; J45.909 Unspecified asthma, uncomplicated; G47.30 Sleep apnea, unspecified; K21.9 Gastro-esophageal reflux disease without esophagitis; K44.9 Diaphragmatic hernia without obstruction or gangrene; K22.70 Barrett's esophagus without dysplasia; Z87.891 Personal history of nicotine dependence; Z68.30 Body mass index [BMI] 30.0-30.9, adult; Z86.010 Personal history of colon polyps; Z87.442 Personal history of urinary calculi; Z98.890 Other specified postprocedural states; Z85.46 Personal history of malignant neoplasm of prostate; Z98.42 Cataract extraction status, left eye; Z98.41 Cataract extraction status, right eye; Z98.52 Vasectomy status; Z96.1 Presence of intraocular lens
CPT/HCPCS: 93312; 93320; 93325; J2001; J2704; J2370

== ENCOUNTER → 2020-04-28 | Outpatient (CLI) | payer MEDICARE ==
[2019-10-07 14:40] VITALS: BP 114/55
[~2020-04-28] MED LIST changes: -HYDROmorphone 2 MG/ML VIAL IV PRN; -IV RINGERS,LACTATED 1000ML 1,000 ML IV SCH; +METO-247 PO; +METO50TA4 PO; +METR60GE2 TOP; -MORPHINE SULFATE 2 MG/ML VIAL. IV PRN; +MULT-445 PO; -MULT1TAB52 PO; -OMEP20CA10 PO; +OMEP20CA16 PO; -PROCHLORPERAZINE 10 MG/2 ML VIAL. IV PRN; -fentaNYL PF VIAL 100 MCG/2 ML VIAL IV PRN
== END | disposition home or self-care (01) ==
LOC: LAB 08:03
PROVIDERS: ATTEND Internal Medicine Gastroenterology
DX: Z11.59 Encounter for screening for other viral diseases (principal)
CPT/HCPCS: U0003-CS

== ENCOUNTER → 2020-04-30 | Day surgery (SDC) | payer MEDICARE ==
[~2020-04-30] MED LIST changes: +IV RINGERS,LACTATED 1000ML 1,000 ML IV SCH; +PROPOFOL 10 MG/ML (20ML) VIAL. IV ONE
--- NOTE | 2020-04-30 07:52 | CONS ---
DATE OF CONSULTATION: 04/30/2020 UPDATED HISTORY AND PHYSICAL REFERRING PHYSICIAN: Fermin White MD REASON FOR CONSULTATION: Zendejas's surveillance. HISTORY OF PRESENT ILLNESS: A 74-year-old male whose past medical history significant for prostate cancer, Zendejas's, hypertension, hyperlipidemia and diverticulosis, is seen for interval Zendejas's exam, his last was in 2017 without intestinal metaplasia. He has been on omeprazole 20 mg daily with occasional breakthrough. He does avoid alcohol, nicotine and caffeine. Weight and appetite are stable. He is otherwise without additional complaints. PAST MEDICAL HISTORY: Hypertension, hyperlipidemia, prostate cancer, and Zendejas's. ALLERGIES: None. MEDICATIONS: Include amlodipine, Eliquis, atorvastatin, Advair, metoprolol and omeprazole. SOCIAL HISTORY: He is a social drinker, nonsmoker. FAMILY HISTORY: Noncontributory. PAST SURGICAL HISTORY: Status post prostatectomy, cholecystectomy, and vasectomy. REVIEW OF SYSTEMS: Per records. PHYSICAL EXAMINATION: GENERAL: Reveals a well-nourished, well-developed male. VITAL SIGNS: Temperature 97.4, pulse 59, respiratory rate 18 and pulse ox 97%. LUNGS: Clear. CARDIOVASCULAR: Reveals an S1, S2 without S3, S4 or appreciable murmur. ABDOMEN: Reveals a soft abdomen, normal bowel sounds, without appreciable hepatosplenomegaly. EXTREMITIES: No cyanosis, clubbing or edema. IMPRESSION AND PLAN: Zendejas's. Interval exam is recommended at this time. Risks and benefits of procedure previously discussed with the patient, signs of perforation, and is willing to proceed. HASMUKH DELA CRUZ MD DR: YASMIN/tianna JOB#: [id number] / [id number]
[2020-04-30 07:53] VITALS: BP 124/58
--- NOTE | 2020-05-01 15:08 | PATHOLOGY ---
[facility] Accession Number: [id number] . 01 Material submitted: . esophagus - DISTAL ESOPHAGUS. Modifiers: distal . 01 Clinical history: . Hx of Zendejas's . 02 Diagnosis: Esophageal biopsies, distal esophagus: - Segments of hyperplastic squamous esophageal mucosa and gastric mucosa showing chronic inflammation, consistent with reflux esophagitis. (JPM:[facility] 05/01/2020) P 05/01/2020 1004 Local . 02 Comment: Sections of the distal esophageal biopsy reveal segments of hyperplastic squamous esophageal mucosa and gastric mucosa showing mild to moderate chronic inflammation consistent with reflux esophagitis. There is no evidence of Zendejas's change, dysplasia, or malignancy. (JPM:[facility] 05/01/2020) . 02 Electronically signed: . Juan Mendez MD, Pathologist NPI- [id number] . 01 Gross description: . The specimen is received in formalin, labeled "Bernadette, Kenneth, distal esophagus" and consists of multiple fragments of white-prajapati tissue measuring 1.4 x 0.3 x 0.2 cm in aggregate which are entirely submitted in A1. ([facility]; 04/30/2020) JFQ/JFQ 04/30/2020 1709 Local . 02 Pathologist provided ICD-10: K20.9 . 02 CPT . 882635 Specimen Comment: A courtesy copy of this report has been sent to [phone], [phone] Specimen Comment: [id number] Specimen Comment: Report sent to / DR WAKEFIELD Specimen Comment: A duplicate report has been generated due to demographic updates. Performed at: [address], [place], [place] [id number] MD Bill Ravi MD Phone: [phone] Performed at: 02 [facility] [address] [place], [place] [id number] MD Juan Mendez MD Phone: [phone]
== END ==
LOC: ENDOS 05:49
PROVIDERS: ATTEND Internal Medicine Gastroenterology
DX: K22.70 Barrett's esophagus without dysplasia (principal); K29.50 Unspecified chronic gastritis without bleeding; K21.0 Gastro-esophageal reflux disease with esophagitis; K31.7 Polyp of stomach and duodenum; I10 Essential (primary) hypertension; E78.5 Hyperlipidemia, unspecified; Z85.46 Personal history of malignant neoplasm of prostate; Z72.89 Other problems related to lifestyle
CPT/HCPCS: 43239; J2704; 88305

== ENCOUNTER → 2020-08-13 | Outpatient (CLI) | payer MEDICARE ==
[2020-04-30 07:53] VITALS: BP 124/58
[~2020-08-13] MED LIST changes: +AMLO-187 PO; -AMLO10TA8 PO; -IV RINGERS,LACTATED 1000ML 1,000 ML IV SCH; -PROPOFOL 10 MG/ML (20ML) VIAL. IV ONE
--- NOTE | 2020-08-13 07:49 | RAD ---
ABDOMEN LTD History: Reason: ELEVATED BILIRUBIN / Spl. Instructions: / History: Comparison: CT March 25, 2017. Technique: Transabdominal ultrasound images are obtained of the right upper quadrant. Findings: Visualized pancreas is unremarkable. Liver is heterogeneous in echogenicity. Right hepatic lobe measures 13.8 cm. Portal flow is hepatopedal. Prior cholecystectomy Common bile duct measures 4.7 mm in diameter. The right kidney measures 12.1 x 6.2 x 4.5 cm. No hydronephrosis. Small right renal cyst measures 1.1 x 0.8 cm. No follow-up imaging is recommended per consensus recommendations based on imaging criteria. Visualized portions of the aorta and IVC have normal caliber. IMPRESSION: 1. Heterogeneous hepatic echotexture, may indicate hepatocellular disease. Recommend further clinical evaluation and follow-up imaging if indicated. Electronically signed by: Edu Hooks DO (08/13/2020 7:46 AM) [id number]
== END ==
LOC: US 07:07
PROVIDERS: ATTEND Family Medicine
DX: R17 Unspecified jaundice (principal); E80.7 Disorder of bilirubin metabolism, unspecified
CPT/HCPCS: 76705

== ENCOUNTER → 2020-09-10 | Outpatient (CLI) | payer MEDICARE ==
[2020-04-30 07:53] VITALS: BP 124/58
[~2020-09-10] MED LIST changes: +CONTRAST GIVEN. MC PRN; +IOHEXOL 300 MG/ML 100ML VIAL. IV ONE
--- NOTE | 2020-09-10 13:49 | RAD ---
CT of the abdomen with and without contrast 09/10/2020 INDICATION: Abnormal liver is demonstrated on recent CT scan. COMPARISON STUDY: Right upper quadrant abdominal ultrasound August 13, 2020. CT of the abdomen and pelvis without contrast March 25, 2017. TECHNIQUE: Multidetector CT imaging of the abdomen was performed both before and after the administration of IV contrast. FINDINGS: Visualized lung bases demonstrate scattered areas of discoid atelectasis. On noncontrast enhanced images the density of the liver is slightly higher than the spleen, without CT evidence of significant steatosis. No overt stigmata of cirrhosis or portal hypertension is identified. Liver contour appears grossly normal. Splenic vein, portal vein, hepatic veins appear grossly patent. No enhancing hepatic lesions are identified. There is a 1.3 cm low-density, nonenhancing lesion in the inferior left liver, consistent with a small cyst. This is somewhat poorly visualized on delayed imaging secondary to motion artifact. Prior cholecystectomy noted. There is a 1.2 cm cyst in superior pole right kidney.. The adrenal glands, spleen, and pancreas, are unremarkable. Visualized bowel demonstrates no obstruction. No acute osseous changes are identified. IMPRESSION: 1. Small hepatic cysts and renal cysts noted. 2. Hepatic morphology is grossly unremarkable by CT without stigmata of cirrhosis or portal hypertension. CT DOSING PQRS STATEMENT: One or more of the following individualized dose reduction techniques were utilized for this examination: 1. Automated exposure control 2. Adjustment of the mA and/or kV according to patient size 3. Use of iterative reconstruction technique Electronically signed by: Ashvin Vera MD (09/10/2020 1:46 PM) [id number]
== END ==
LOC: CT 09:58
PROVIDERS: ATTEND Family Medicine
DX: N28.1 Cyst of kidney, acquired (principal)
CPT/HCPCS: 74170; Q9967

== ENCOUNTER → 2021-02-16 | Outpatient (CLI) | payer MEDICARE ==
[2020-04-30 07:53] VITALS: BP 124/58
[~2021-02-16] MED LIST changes: -CONTRAST GIVEN. MC PRN; -DRON400T PO; +DRON400T6 PO; -IOHEXOL 300 MG/ML 100ML VIAL. IV ONE; -MV-M1TAB19 PO; +MV-M1TAB74 PO
[2021-02-16 10:34] LABS: ALBUMIN 3.6 g/dL (3.4-5.0); CALCIUM 8.6 mg/dL (8.5-10.1); CREATININE 0.9 mg/dL (0.7-1.3); GFR 82.5; POTASSIUM 3.6 mmol/L (3.5-5.1); TOTAL BILIRUBIN 1.1 mg/dL (0.2-1.0); TOTAL PROTEIN 7.1 g/dL (6.4-8.2)
[2021-02-16 10:35] LABS: CHOLESTEROL/HDL RATIO 2.5
--- NOTE | 2021-02-17 08:48 | CARD ---
MR#: [id number] Date of Study: 02/16/2021 Ordering Physician: MEDARDO MEDINA, Referring Physician: MEDARDO MEDINA, Tech: Medina Esteveztrinitynatacha, [facility] APPROVED REPORT EXAM: Two-dimensional and M-mode echocardiogram with Doppler and color Doppler. Other Information Quality : AverageHR: 58bpm INDICATION Atrial Fibrillation Paraxomal atrial fibrillation RISK FACTORS Hypertension Hyperlipidemia 2D DIMENSIONS RVDd4.4 (2.9-3.5cm)Left Atrium(2D)4.5 (1.6-4.0cm) IVSd1.2 (0.7-1.1cm)Aortic Root(2D)3.7 (2.0-3.7cm) LVDd6.0 (3.9-5.9cm)LVOT Diameter2.2 (1.8-2.4cm) PWd1.2 (0.7-1.1cm)LVDs3.7 (2.5-4.0cm) FS (%) 37.5 %SV119.4 ml LVEF(%)66.6 (>50%) Aortic Valve AoV Peak Yohannes.134.7cm/sAoV VTI27.3cm AO Peak GR.7.3mmHgLVOT Peak Yohannes.85.5cm/s LVOT VTI 19.56cmAO Mean GR.4mmHg MARCELA (VMAX)1.35ik2YRY (VTI)2.80cm2 AI P 1/2 Etan562zd Mitral Valve MV E Dpnsuram88.2cm/sMV DECEL OOEE075nf MV A Fmlthxtm34.6cm/sMV XUA75kv E/A Ratio0.9MVA (PHT)4.09cm2 TDI E/Lateral E'5.7E/Medial E'4.6 Pulmonary Valve PV Peak Fdpuffxe524.2cm/sPV Peak Grad.4mmHg Tricuspid Valve TR P. Nscnybwe762ze/sRAP ZZRRFKOC2sbZt TR Peak Gr.27ivSpLJDT96cbLm Pulmonary Vein S1 Hwivxtow15.0cm/sD2 Mrnzweou24.8cm/s PVa zkwbxpdw385uxmm LEFT VENTRICLE The left ventricle is normal size. There is mild concentric left ventricular hypertrophy. The left ve ntricular systolic function is normal. The Ejection Fraction is 55%. There is normal LV segmental wal l motion. Transmitral Doppler flow pattern is Grade I-abnormal relaxation pattern. RIGHT VENTRICLE The right ventricle is normal size. There is normal right ventricular wall thickness. The right ventr icular systolic function is normal. ATRIA The left atrium is midly dilated. The right atrium is borderline dilated. The interatrial septum is i ntact with no evidence for an atrial septal defect or patent foramen ovale as noted on 2-D or Doppler imaging. AORTIC VALVE The aortic valve is calcified but opens well. Doppler and Color Flow revealed mild aortic regurgitati on. There is no significant aortic valvular stenosis. Calculated aortic valve area is 2.58 cm2 with m aximum pressure gradient of 10 mmHg and mean pressure gradient of 4 mmHg. MITRAL VALVE The mitral valve is normal in structure and function. There is no evidence of mitral valve prolapse. There is no mitral valve stenosis. Doppler and Color-flow revealed trace mitral regurgitation. TRICUSPID VALVE The tricuspid valve is normal in structure and function. Doppler and Color Flow revealed trace tricus pid regurgitation with an estimated PAP of 30 mmHg. There is no tricuspid valve stenosis. PULMONIC VALVE The pulmonic valve is not well visualized. Doppler and Color Flow revealed trace pulmonic valvular re gurgitation. GREAT VESSELS The aortic root is normal in size. The ascending aorta is Mildly dilated measuring 4.1 cm. The IVC is normal in size and collapses >50% with inspiration. PERICARDIAL EFFUSION There is no evidence of significant pericardial effusion. Critical Notification Critical Value: No <Conclusion> The left ventricular systolic function is normal. The Ejection Fraction is 55%. There is normal LV segmental wall motion. Mild aortic regurgitation. Trace mitral regurgitation. Trace tricuspid regurgitation with an estimated PAP of 30 mmHg. The ascending aorta is Mildly dilated measuring 4.1 cm. There is no evidence of significant pericardial effusion. Signed by : Matthieu Hilliard, Electronically Approved : 02/17/2021 08:48:05
== END ==
LOC: ECHO 08:43
PROVIDERS: ATTEND Internal Medicine Cardiovascular Disease
DX: I35.1 Nonrheumatic aortic (valve) insufficiency (principal); I48.0 Paroxysmal atrial fibrillation; E78.5 Hyperlipidemia, unspecified; I51.7 Cardiomegaly
CPT/HCPCS: 36415; 80053; 80061; 93306

== ENCOUNTER → 2021-08-21 | Outpatient (CLI) | payer MEDICARE ==
[2020-04-30 07:53] VITALS: BP 124/58
--- NOTE | 2021-08-23 14:22 | RAD ---
MR#: [id number] Date of Study: 08/21/2021 Ordering Physician: MEDARDO MEDINA, Referring Physician: CHU PANDA Tech: RT Win Lindsey) (N) APPROVED REPORT Test Type: Exercise Stress Nurse/Tech: Alysha Kitchen RN Test Indications: paroxysmal atrial fibrillation Cardiac History: ablation 2020, HTN, x-smoker Medications: See Electronic Medical Record Medical History: See Electronic Medical Record Resting ECG: SR Resting Heart Rate: 54 bpm Resting Blood Pressure: 148/70mmHg Pretest Chest Pain: None Nurse/Tech Notes lungs CTA, S1S2 Consent: The procedure was explained to the patient in lay terms. Informed consent was witnessed. Galen eout was entered into [employer]. History and Stress Test performed by RT Win Beavers) (N) Pharm. Details Stress Symptoms No chest pain or symptoms. POST EXERCISE Reason for Termination: Reached target heart rate Target HR: Yes Max HR: 130 bpm 89% of Maximum Predicted HR: 146 bpm Exercise duration: 7:36 min:sec, 3 Stage Max Blood Pressure: 164/78mmHg Blood Pressure response to exercise: Normal blood pressure response during stress. Heart Rate response to exercise: normal response Chest Pain: No. Arrhythmia: No. ST Change: No. INTERPRETATION Stress EKG Conclusion: The resting EKG shows a sinus rhythm with mild nonspecific ST-T wave changes. The stress EKG shows no significant changes from baseline. No EKG evidence of stress-induced ischemia. Imaging Protocol IMAGE PROTOCOL: Rest Tc-99m/stress Tc-99m 1 day Rest: Stress: Viability: Radiopharm.Tc99m DbuyuhwtfAf19s Sestamibi Dose10.3mCi 30.5mCi Duration 15min. 15min. Img Date 08/21/2021 08/21/2021 Inj-Img Dvjt10iqe. 60min. Rest Admin Site:IV - Right AntecubitalAdministrator:RT Win Beavers)(N) Stress Admin Site: IV - Right AntecubitalAdministrator: RT Win Beavers)(N) STRESS DATA End Diast. Vol.161.0mlAv. Heart Rate60.0bpm End Syst. Vol.41.0mlCO Index BSA7.2L/min Myocardial Eoxj939.0gEject. Hgtbperg75.0% Stress Rates Pk. Fill Rate2.73EDV/secLVtime Pk. Fill 217.72msec Pk. Empty Rate3.19ESV/secLVtime Pk. Mgdke354.37msec 1/3 Pk. Fill0.94EDV/sec Stress Scores Regional WT0.00Summed WT0.00 Regional WM0.00Summed WM0.00 LV Perfusion The stress scans show no significant defects. The rest scans show no significant defects. Nuclear imaging shows no reversible ischemia or infarct. Wall Motion Left ventricular systolic function is normal with no regional wall motion abnormalities and an ejecti on fraction of greater than 70%. LV Perf. Quant 17 Seg. SSS4.00 17 Seg. SRS0.00 17 Seg. SDS4.00 Stress Defect Extent (% LAD)0.00Rest Defect Extent (% LAD)0.00Rev. Defect Extent (% LAD)0.00 Stress Defect Extent (% LCX) 33.80Rest Defect Extent (% LCX)0.00Rev. Defect Extent (% LCX)33.80 Stress Defect Extent (% RCA)0.00Rest Defect Extent (% RCA)0.00Rev. Defect Extent (% RCA)0.00 Stress Defect Extent (% JONATHON)5.90Rest Defect Extent (% JONATHON)0.00Rev. Defect Extent (% JONATHON)5.90 Conclusion 1. Good exercise tolerance with the patient walking for 7 minutes and 36 seconds on a Preet protocol. 2. No EKG evidence of stress-induced ischemia. 3. Nuclear imaging shows no reversible ischemia or infarct. 4. Normal left ventricular systolic function with an ejection fraction of greater than 70%. 5. Low risk treadmill nuclear stress test. Signed by : Willis Lamas MD Electronically Approved : 08/23/2021 14:22:22
== END ==
LOC: NM 08:45
PROVIDERS: ATTEND Internal Medicine Cardiovascular Disease
DX: I48.0 Paroxysmal atrial fibrillation (principal)
CPT/HCPCS: 78452; 93017; A9500